=== PATIENT | male | born 1950 | race Caucasian/White ===

== ENCOUNTER 2016-07-11 19:51 | Inpatient (IN) | payer OTHER ==
[~2016-07-11] VITALS: Ht 172.7 cm; Wt 76.0 kg
[~2016-07-11 19:51] MED LIST: CYCL10TA6 PO; MELO15TA4 PO
[2016-07-11] MEDS ORDERED: LEVAQUIN 750MG / 150ML D5W IV STA (20:09)
[2016-07-11] MEDS ORDERED: PIPERACILLIN/TAZOBACTAM 4.5 GM/100ML D5W IV STA (20:09)
[2016-07-11] MEDS ORDERED: SODIUM CHLORIDE 0.9% 1000ML 1,000 ML IV STA ×2 (20:09→20:11)
[2016-07-11] MEDS ORDERED: SODIUM CHLORIDE 0.9% 500ML 500 ML IV STA (20:19)
--- NOTE | 2016-07-11 20:28 | EMERGENCY ROOM VISIT NOTE ---
History Report prepared by Lu: Frances Segundo Under the Supervision of: Dr. Anup Cowan M.D. First contact with patient: 20:02 Chief Complaint: FLU LIKE SX Stated Complaint: FLU LIKE SYMPTOMS,LETHARGIC History of Present Illness The patient is a 66 year old male who presents to the Emergency Room with complaints of persistent flu like symptoms that began one week ago. He currently rates his discomfort as a 6/10 in severity. The patient notes that he developed nausea, chills, a cough, and vomiting, stating that he is bringing up phlegm. He states that he has a history of kidney stone, stating that the other night he developed flank pain. The patient denies any current back pain, but notes groin pain. He states that he has been taking Ibuprofen for his symptoms and states that he last took it either last night or this morning. The patient denies any abdominal pain, but notes muscular pain due to the persistent coughing. 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 She states that the patient refused to come to the emergency department for further evaluation. Per the patient's daughter, the patient seemed fatigued on Thursday, but denies any confusion at that time. She states that the patient has been increasingly weak, has been confused and has had a decrease in appetite. Source of History: patient Onset: one week ago Position: other (global) Symptom Intensity: 6/10 Quality: other (flu like symptoms) Timing: other (persistent) Associated Symptoms: + chills, + cough, + fatigue, + nausea, + vomiting, + weakness, No abdominal pain, No back pain Note: Associated Symptoms: flank pain, groin pain, muscular pain, decrease in appetite , confused. Review of Systems See HPI for pertinent positives & negatives. A total of 10 systems reviewed and were otherwise negative. Past Medical & Surgical Medical Problems: (1) BPH (benign prostatic hypertrophy) (2) Renal calculi (3) Sepsis Surgical Problems: (1) H/O eye surgery (2) H/O lithotripsy Family History Diabetes mellitus FH: cancer FH: heart disease Social History Smoking Status: Former Smoker Alcohol Use: occasionally Drug Use: none Marital Status: Housing Status: lives with family Occupation Status: employed Current/Historical Medications Scheduled PRN Ibuprofen (Motrin), 400 MG PO Q6H PRN for Pain Allergies Coded Allergies: Acetaminophen (Verified Adverse Reaction, Unknown, vomiting, 09/25/13) Hydrocodone (Verified Adverse Reaction, Unknown, vomiting, 09/25/13) Physical Exam Vital Signs Date Time Temp Pulse Resp B/P Pulse Ox O2 Delivery O2 Flow Rate FiO2 07/11/16 21:31 38.0 110 20 93/59 93 Room Air 07/11/16 21:15 Room Air 07/11/16 20:30 120 20 96/59 93 07/11/16 20:18 121 07/11/16 20:17 93 Room Air 07/11/16 19:59 37.9 130 18 96/61 92 Room Air Physical Exam GENERAL: Patient appears confused. HEAD: Normocephalic atraumatic EYES: Ocular movements intact pupils equal and react to light OROPHARYNX mucous membranes are moist no exudates present no erythema or edema present NECK: Supple no nuchal rigidity CHEST: Good equal expansion LUNGS: Clear and equal to auscultation CARDIAC: Normal S1 and S2 ABDOMEN: Soft nontender no guarding BACK: No CVA tenderness EXTREMITIES: No pain upon palpation normal muscle strength in all groups no clubbing cyanosis or edema NEURO: Patient is following commands is answering questions appropriately. Alert and oriented x3 Cranial Nerves 2-12 grossly intact Medical Decision & Procedures ER Provider Diagnostic Interpretation: X-ray results as stated below per my interpretation and radiologist interpretation. Other radiology results as stated below per my review and radiologist interpretation: HEAD CT NONCONTRAST CT DOSE: 537.48 mGy.cm HISTORY: Altered mental status. TECHNIQUE: Multiaxial CT images of the head were performed without the use of intravenous contrast. Automated exposure control was utilized for this study. Comparison: None. Findings: Trace fluid within the right sphenoid sinus. The remaining paranasal sinuses and mastoid air cells are clear. The calvarium and skull base are intact. The ventricles and sulci are within normal limits. There is no mass, hematoma, midline shift, or acute infarct. Impression: No acute intracranial abnormality. Electronically signed by: Randall Richards M.D. 07/11/2016 10:03 PM CHEST ONE VIEW PORTABLE HISTORY: Sepsis COMPARISON: None. FINDINGS: There are low lung volumes. No focal lung consolidations to suggest pneumonia. No evidence for pulmonary edema. No pleural effusions. No pneumothorax. The heart is normal in size. A 1 cm nodular density within the right lateral lung base. This favors an overlapping nipple shadow. IMPRESSION: 1. No acute process within the chest. 2. A 1 cm nodular density within the right lateral lung base which favors an overlapping nipple shadow. Follow-up nonemergent PA and lateral views of the chest with nipple markers can be used for confirmation. Electronically signed by: Randall Richards M.D. 07/11/2016 8:41 PM Laboratory Results 07/11/16 20:18 Red Blood Count 4.35, Mean Corpuscular Volume 83.4, Mean Corpuscular Hemoglobin 29.2, Mean Corpuscular Hemoglobin Concent 35.0, Mean Platelet Volume 9.9, Neutrophils (%) (Auto) 91.8, Lymphocytes (%) (Auto) 3.5, Monocytes (%) (Auto) 3.1, Eosinophils (%) (Auto) 0.1, Basophils (%) (Auto) 0.1, Neutrophils # (Auto) 12.09, Lymphocytes # (Auto) 0.46, Monocytes # (Auto) 0.41, Eosinophils # (Auto) 0.01, Basophils # (Auto) 0.01 07/11/16 20:18 Test 07/11/16 20:15 07/11/16 20:18 07/11/16 20:23 07/11/16 20:25 Influenza Type A (RT-PCR) Neg for Influ A (NEG) Influenza Type B (RT-PCR) Neg for Influ B (NEG) White Blood Count 13.17 K/uL (4.8-10.8) Red Blood Count 4.35 M/uL (4.7-6.1) Hemoglobin 12.7 g/dL (14.0-18.0) Hematocrit 36.3 % (42-52) Mean Corpuscular Volume 83.4 fL (80-100) Mean Corpuscular Hemoglobin 29.2 pg (25-34) Mean Corpuscular Hemoglobin Concent 35.0 g/dl (32-36) Platelet Count 333 K/uL (130-400) Mean Platelet Volume 9.9 fL (7.4-10.4) Neutrophils (%) (Auto) 91.8 % Lymphocytes (%) (Auto) 3.5 % Monocytes (%) (Auto) 3.1 % Eosinophils (%) (Auto) 0.1 % Basophils (%) (Auto) 0.1 % Neutrophils # (Auto) 12.09 K/uL (1.4-6.5) Lymphocytes # (Auto) 0.46 K/uL (1.2-3.4) Monocytes # (Auto) 0.41 K/uL (0.11-0.59) Eosinophils # (Auto) 0.01 K/uL (0-0.5) Basophils # (Auto) 0.01 K/uL (0-0.2) RDW Standard Deviation 46.0 fL (36.4-46.3) RDW Coefficient of Variation 14.9 % (11.5-14.5) Immature Granulocyte % (Auto) 1.4 % Immature Granulocyte # (Auto) 0.19 K/uL (0.00-0.02) Prothrombin Time 13.1 SECONDS (9.0-12.0) Prothromb Time International Ratio 1.2 (0.9-1.1) Activated Partial Thromboplast Time 28.0 SECONDS (21.0-31.0) Partial Thromboplastin Ratio 1.1 Est Creatinine Clear Calc Drug Dose 49.5 ml/min Estimated GFR () 59.8 Estimated GFR (Non- 51.6 BUN/Creatinine Ratio 26.9 (10-20) Calcium Level 8.0 mg/dl (8.5-10.1) Total Bilirubin 1.4 mg/dl (0.2-1) Aspartate Amino Transf (AST/SGOT) U/L (15-37) Alanine Aminotransferase (ALT/SGPT) 54 U/L (12-78) Alkaline Phosphatase 135 U/L (45-117) Total Protein 7.3 gm/dl (6.4-8.2) Albumin 2.3 gm/dl (3.4-5.0) Globulin 5.0 gm/dl (2.5-4.0) Albumin/Globulin Ratio 0.5 (0.9-2) Hepatitis C Antibody Screen NEG (NEG) Bedside Lactic Acid Venous 2.28 mmol/L (0.90-1.70) Urine Color ORANGE Urine Appearance CLOUDY (CLEAR) Urine pH 5.0 (4.5-7.5) Urine Specific [place] 1.030 (1.000-1.030) Urine Protein 2+ (NEG) Urine Glucose (UA) NEG (NEG) Urine Ketones NEG (NEG) Urine Occult Blood 2+ (NEG) Urine Nitrite POS (NEG) Urine Bilirubin 2+ (NEG) Urine Urobilinogen POS (NEG) Urine Leukocyte Esterase TRACE (NEG) Urine WBC (Auto) 5-10 /hpf (0-5) Urine RBC (Auto) 5-10 /hpf (0-4) Urine Hyaline Casts (Auto) 10-30 /lpf (0-5) Urine Epithelial Cells (Auto) >30 /lpf (0-5) Urine Bacteria (Auto) NEG (NEG) Urine Renal Epithelial Cells 5-10 /lpf (0-5) Urine Pathogenic Casts 1-5 GRANULAR CASTS /lpf (0) Test 07/11/16 20:27 07/11/16 20:28 07/11/16 21:35 Bedside Hemoglobin 12.6 g/dl (14.0-18.0) Bedside Hematocrit 37 % (42-52) Bedside Sodium 132 mEq/L (135-144) Bedside Potassium 4.3 mEq/L (3.3-5.0) Bedside Chloride 97 mEq/L (101-112) Bedside Total CO2 22 mEq/l (24-31) Anion Gap 18.0 mmol/L (16-25) Bedside Blood Urea Nitrogen 47 mg/dl (7-18) Bedside Creatinine 1.2 mg/dl (0.6-1.3) Bedside Glucose (other) 91 mg/dl (70-99) Bedside Ionized Calcium (Alma) 1.00 mmol/l (1.12-1.32) D-Dimer 4180 ug/L FEU (0-500) Creatine Kinase MB Ratio (0-3.0) Troponin I 3.940 ng/ml (0-0.045) Lyme Disease IgG Antibody NEG (NEG) Lyme Disease IgM Antibody NEG (NEG) Labs reviewed by ED physician. Medications Administered Medications (Trade) Dose Ordered Sig/Amrit Route Start Time Stop Time Status Last Admin Dose Admin Piperacillin Sod/ Tazobactam Sod (Zosyn Iv) 4.5 gm ONE STAT IV 07/11/16 20:09 07/11/16 20:11 DC 07/11/16 20:26 4.5 GM Levofloxacin 750 mg 750 mg ONE STAT IV 07/11/16 20:09 07/11/16 20:11 DC 07/11/16 21:30 750 MG Daptomycin 450 mg/ Sodium Chloride 59 ml @ 100 mls/hr NOW ONCE IV 07/11/16 20:30 07/11/16 21:05 DC 07/11/16 20:45 100 MLS/HR Sodium Chloride 1,000 ml @ 999 mls/hr Q1H1M STAT IV 07/11/16 20:09 07/11/16 21:09 DC 07/11/16 20:26 999 MLS/HR Sodium Chloride 1,000 ml @ 999 mls/hr Q1H1M STAT IV 07/11/16 20:11 07/11/16 21:11 DC 07/11/16 20:45 999 MLS/HR Sodium Chloride (Nss 500ml) 500 ml @ 999 mls/hr Q31M STAT IV 07/11/16 20:19 07/11/16 20:49 DC 07/11/16 20:19 999 MLS/HR Ibuprofen 600 mg 600 mg NOW STAT PO 07/11/16 20:39 07/11/16 20:40 DC 07/11/16 20:45 600 MG Sodium Chloride (Nss 1000ml) 1,000 ml @ 125 mls/hr Q8H IV 07/11/16 21:55 08/10/16 21:54 07/11/16 23:23 125 MLS/HR ECG Indication: other (Flu like symptoms) Rate (beats per minute): 122 Rhythm: sinus tachycardia Findings: no acute ischemic change, no ectopy ED Course 2004: Past medical records reviewed. The patient was evaluated in room B2. A complete history and physical examination was performed. 2009: Ordered Sodium Chloride 1000 ml @ 999 mls/hr IV, Levofloxacin 750 mg IV, Zosyn IV 4.5 gm IV. 2010: Ordered Sodium Chloride 1000 ml @ 999 mls/hr IV. 2019: Ordered Sodium Chloride 500 ml @ 999 mls/hr IV 2030: Ordered Daptomycin 450 mg/Sodium Chloride 59 ml @ 100 mls/hr IV. 2038: I reevaluated the patient and he would like to have an HIV test.Ordered Ibuprofen 600 mg PO. 2125: I discussed the patient's case with REAGAN Delgado. She is going to evaluate the patient for further treatment. 2129: I reevaluated the patient and he is doing resting comfortably. I discussed the exam findings with him and I discussed the treatment plan. He verbalized complete understanding and agreement. He is going to be evaluated for further treatment. Medical Decision Differential diagnosis: Etiologies such as sepsis, UTI, pneumonia, metabolic, electrolyte abnormalities , cardiac sources, intracerebral event, toxicologic, neurologic, as well as others were entertained. This is a 66-year-old male who presents emergency department complaining of hypotension Tachycardic and fever. Because is septic an IV was established, the patient was given normal saline bolus 30 mg/kg. In addition he was pancultured up and started on antibiotics. The patient is requesting an HIV test. He was counseled and willingly signed a consent. The patient was discussed with the hospitalist service who agreed to admit the patient. Patient was in agreement with the treatment plan. Consults Time Called: 2123 Consulting Physician: REAGAN Delgado Returned Call: 2125 I discussed the patient's case with REAGAN Delgado. She is going to evaluate the patient for further treatment. Impression Primary Impression: Sepsis Scribe Attestation The scribe's documentation has been prepared under my direction and personally reviewed by me in its entirety. I confirm that the note above accurately reflects all work, treatment, procedures, and medical decision making performed by me. Departure Information Dispostion Being Evaluated By Hospitalist Referrals Magi Marie M.D. (PCP)
[2016-07-11] MEDS ORDERED: DAPTOmycin IV 450 MG in SODIUM CHLORIDE 0.9% 50ML 50 ML IV ONE (20:30)
[2016-07-11 20:35] LABS: BASO % 0.1 %; BASO ABS # 0.01 K/uL (0-0.2); COMPLETE YES; EOS % 0.1 %; HEMATOCRIT 36.3 % (42-52); IG% 1.4 %; LYMPH % 3.5 %; LYMPH ABS # 0.46 K/uL (1.2-3.4); MEAN CELL VOLUME 83.4 fL (80-100); MEAN CORPUSCULAR HEMOGLOBIN 29.2 pg (25-34); MEAN PLATELET VOLUME 9.9 fL (7.4-10.4); MONO % 3.1 %; NEUT % 91.8 %; PLATELET COUNT 333 K/uL (130-400); RED BLOOD COUNT 4.35 M/uL (4.7-6.1); WHITE BLOOD COUNT 13.17 K/uL (4.8-10.8)
[2016-07-11] MEDS ORDERED: IBUPROFEN 600 MG TAB PO STA (20:39)
[2016-07-11 20:42] LABS: URINE APPEARANCE CLOUDY (CLEAR); URINE COLOR ORANGE; URINE EPITHELIAL CELL AUTO >30 /lpf (0-5); URINE NITRITE POS (NEG); UROBILINOGEN POS (NEG); ZZUR CULT IF INDIC CLEAN CATCH NO
--- NOTE | 2016-07-11 20:42 | DIAGNOSTIC IMAGING REPORT ---
CHEST ONE VIEW PORTABLE HISTORY: Sepsis COMPARISON: None. FINDINGS: There are low lung volumes. No focal lung consolidations to suggest pneumonia. No evidence for pulmonary edema. No pleural effusions. No pneumothorax. The heart is normal in size. A 1 cm nodular density within the right lateral lung base. This favors an overlapping nipple shadow. IMPRESSION: 1. No acute process within the chest. 2. A 1 cm nodular density within the right lateral lung base which favors an overlapping nipple shadow. Follow-up nonemergent PA and lateral views of the chest with nipple markers can be used for confirmation. Electronically signed by: Randall Richards M.D. 07/11/2016 8:41 PM
[2016-07-11 20:43] LABS: URINE BILIRUBIN 2+ (NEG)
[2016-07-11 20:44] LABS: ISTAT CREATININE 1.2 mg/dl (0.6-1.3); ISTAT HEMOGLOBIN 12.6 g/dl (14.0-18.0)
[2016-07-11 20:47] LABS: MANUAL MICROSCOPIC REQUIRED? NO; REVIEW REQ? YES
[2016-07-11 20:47] LABS: INR 1.2 (0.9-1.1); PARTIAL THROMBOPLASTIN RATIO 1.1; PROTHROMBIN TIME (PATIENT) 13.1 SECONDS (9.0-12.0)
[2016-07-11 21:01] LABS: URINE PATH CASTS 1-5 GRANULAR CASTS /lpf (0)
[2016-07-11 21:10] LABS: ALT/SGPT 54 U/L (12-78); BLOOD UREA NITROGEN 38 mg/dl (7-18); CARBON DIOXIDE 23 mmol/L (21-32); CHLORIDE 98 mmol/L (98-107); GLUCOSE 86 mg/dl (70-99); SODIUM 133 mmol/L (136-145)
[2016-07-11 21:15] VITALS: Ht 172.7 cm; Wt 76.0 kg
[2016-07-11 21:43] LABS: ALB/GLOB RATIO 0.5 (0.9-2); ALKALINE PHOSPHATASE 135 U/L (45-117); BUN/CREATININE RATIO 26.9 (10-20)
[2016-07-11 22:00] LABS: INFLUENZA A PCR Neg for Influ A (NEG); INFLUENZA B PCR Neg for Influ B (NEG)
[2016-07-11] MEDS ORDERED: NITROGLYCERIN 0.4 MG SL PER TAB CHARGE SL PRN (22:00)
[2016-07-11] MEDS ORDERED: PIPERACILL/TAZOBAC CONSULT ACTIVE PRN (22:04)
--- NOTE | 2016-07-11 22:05 | DIAGNOSTIC IMAGING REPORT ---
HEAD CT NONCONTRAST CT DOSE: 537.48 mGy.cm HISTORY: Altered mental status. TECHNIQUE: Multiaxial CT images of the head were performed without the use of intravenous contrast. Automated exposure control was utilized for this study. Comparison: None. Findings: Trace fluid within the right sphenoid sinus. The remaining paranasal sinuses and mastoid air cells are clear. The calvarium and skull base are intact. The ventricles and sulci are within normal limits. There is no mass, hematoma, midline shift, or acute infarct. Impression: No acute intracranial abnormality. Electronically signed by: Randall Richards M.D. 07/11/2016 10:03 PM
[2016-07-11] MEDS ORDERED: IBUP-1459 PO (22:06)
[2016-07-11] MEDS ORDERED: LEVOFLOXACIN CONSULT ACTIVE PRN (22:15)
--- NOTE | 2016-07-11 22:40 | History and Physical ---
History & Physical Date & Time of Service: Jul 11, 2016 at 22:07 Chief Complaint: Flu Like Symptoms,Lethargic Primary Care Physician: Magi Marie M.D. History of Present Illness Source: patient This is a 66 y/o male with no PMHx who presents to the ED c/o flu like sxs for one week. Pt reports that for the past week he has had a cough that is mildly productive of phlegm. He states he will get coughing spells that cause him to vomit. His sxs are assoc with poor appetite but he has been able to eat multiple small meals a day. He had been taking Ibuprofen at home for his sxs with minimal relief. Today he developed shaking chills which prompted him to go to the ED. Pt reports he had some fleeting flank pain last week and ended up passing a stone which he states happens from time to time. Pt denies fever, diaphoresis, chest pain, palpitations, SOB, wheezing, abd pain, nausea, bowel or bladder issues, LE edema ,calf pain, lightheadedness/dizziness. In the ED, pt is febrile, tachycardic and hypotensive on arrival with leukocytosis >13k. lactic acid 2.28. Na+ 133. UA +nitrite, 2+ blood; neg bacteria. CXR negative for acute process. Initial troponin 2.9 and EKG sinus tachy with no acute ischemic changes noted. Pt received IVF and broad spectrum abx in the ED. He appears stable and will be admitted for further evaluation and treatment. Past Medical/Surgical History Medical Problems: (1) BPH (benign prostatic hypertrophy) Status: Chronic (2) Renal calculi Status: Resolved Surgical Problems: (1) H/O eye surgery Permanent Comment: repair retinal detachment Status: Resolved (2) H/O lithotripsy Status: Resolved Family History Diabetes mellitus FH: cancer FH: heart disease Social History Smoking Status: Former Smoker (13 pack year history; quit 1981) Alcohol Use: occasionally (rarely) Drug Use: none Marital Status: Housing status: lives with family Occupational Status: employed Allergies Coded Allergies: Acetaminophen (Verified Adverse Reaction, Unknown, vomiting, 09/25/13) Hydrocodone (Verified Adverse Reaction, Unknown, vomiting, 09/25/13) Home Medications Scheduled PRN Ibuprofen (Motrin), 400 MG PO Q6H PRN for Pain Review of Systems Constitutional: + chills, + fatigue, + weakness, No fever, No sweats Eyes: No worsening of vision ENT: No nasal symptoms, No sore throat Respiratory: + cough, + sputum, No shortness of breath, No wheezing Cardiovascular: No chest pain, No claudication, No edema, No palpitations Abdomen: + vomiting, No GI bleeding, No constipation, No diarrhea, No nausea, No pain Musculoskeletal: No calf pain, No swelling Genitourinary - Male: No dysuria, No hematuria Neurologic: No weakness Psychiatric: No depression symptoms Endocrine: + fatigue Hematologic / Lymphatic: No abnormal bleeding/bruising Integumentary: No new/changing skin lesions Physical Exam Vital Signs Date Time Temp Pulse Resp B/P Pulse Ox O2 Delivery O2 Flow Rate FiO2 07/11/16 21:31 38.0 110 20 93/59 93 Room Air 07/11/16 20:18 121 07/11/16 20:17 93 Room Air 07/11/16 19:59 37.9 130 18 96/61 92 Room Air General Appearance: WD/WN, no apparent distress, + pertinent finding (Pt is laying in bed with and daughter at bedside ) Head: normocephalic, atraumatic Eyes: normal inspection ENT: hearing grossly normal Neck: supple Respiratory/Chest: chest non-tender, lungs clear, normal breath sounds, no respiratory distress Cardiovascular: regular rate, rhythm, no edema, no murmur, + tachycardia Abdomen/GI: normal bowel sounds, non tender, soft Back: normal inspection Extremities/Musculoskelatal: normal inspection, no calf tenderness, no pedal edema Neurologic/Psych: alert, normal mood/affect, oriented x 3 Skin: normal color, warm/dry Diagnostics Laboratory Results Results Past 24 Hours Test 07/11/16 20:09 07/11/16 20:15 07/11/16 20:18 07/11/16 20:23 Range/Units Creatine Kinase MB Ratio 0-3.0 Influenza Type A (RT-PCR) Neg for Influ A NEG Influenza Type B (RT-PCR) Neg for Influ B NEG White Blood Count 13.17 4.8-10.8 K/uL Red Blood Count 4.35 4.7-6.1 M/uL Hemoglobin 12.7 14.0-18.0 g/dL Hematocrit 36.3 42-52 % Mean Corpuscular Volume 83.4 80-100 fL Mean Corpuscular Hemoglobin 29.2 25-34 pg Mean Corpuscular Hemoglobin Concent 35.0 32-36 g/dl Platelet Count 333 130-400 K/uL Mean Platelet Volume 9.9 7.4-10.4 fL Neutrophils (%) (Auto) 91.8 % Lymphocytes (%) (Auto) 3.5 % Monocytes (%) (Auto) 3.1 % Eosinophils (%) (Auto) 0.1 % Basophils (%) (Auto) 0.1 % Neutrophils # (Auto) 12.09 1.4-6.5 K/uL Lymphocytes # (Auto) 0.46 1.2-3.4 K/uL Monocytes # (Auto) 0.41 0.11-0.59 K/uL Eosinophils # (Auto) 0.01 0-0.5 K/uL Basophils # (Auto) 0.01 0-0.2 K/uL RDW Standard Deviation 46.0 36.4-46.3 fL RDW Coefficient of Variation 14.9 11.5-14.5 % Immature Granulocyte % (Auto) 1.4 % Immature Granulocyte # (Auto) 0.19 0.00-0.02 K/uL Prothrombin Time 13.1 9.0-12.0 SECONDS Prothromb Time International Ratio 1.2 0.9-1.1 Activated Partial Thromboplast Time 28.0 21.0-31.0 SECONDS Partial Thromboplastin Ratio 1.1 Sodium Level 133 136-145 mmol/L Potassium Level 3.5-5.1 mmol/L Chloride Level 98 98-107 mmol/L Carbon Dioxide Level 23 21-32 mmol/L Anion Gap 12.0 3-11 mmol/L Blood Urea Nitrogen 38 7-18 mg/dl Creatinine 1.40 0.60-1.40 mg/dl Est Creatinine Clear Calc Drug Dose 49.5 ml/min Estimated GFR () 59.8 Estimated GFR (Non- 51.6 BUN/Creatinine Ratio 26.9 10-20 Random Glucose 86 70-99 mg/dl Calcium Level 8.0 8.5-10.1 mg/dl Total Bilirubin 1.4 0.2-1 mg/dl Aspartate Amino Transf (AST/SGOT) 15-37 U/L Alanine Aminotransferase (ALT/SGPT) 54 12-78 U/L Alkaline Phosphatase 135 45-117 U/L Total Creatine Kinase 39-308 U/L Creatine Kinase MB 7.1 0.5-3.6 ng/ml Troponin I 2.970 0-0.045 ng/ml Total Protein 7.3 6.4-8.2 gm/dl Albumin 2.3 3.4-5.0 gm/dl Globulin 5.0 2.5-4.0 gm/dl Albumin/Globulin Ratio 0.5 0.9-2 Bedside Lactic Acid Venous 2.28 0.90-1.70 mmol/L Test 07/11/16 20:25 07/11/16 20:27 07/11/16 21:35 Range/Units Urine Color ORANGE Urine Appearance CLOUDY CLEAR Urine pH 5.0 4.5-7.5 Urine Specific [place] 1.030 1.000-1.030 Urine Protein 2+ NEG Urine Glucose (UA) NEG NEG Urine Ketones NEG NEG Urine Occult Blood 2+ NEG Urine Nitrite POS NEG Urine Bilirubin 2+ NEG Urine Urobilinogen POS NEG Urine Leukocyte Esterase TRACE NEG Urine WBC (Auto) 5-10 0-5 /hpf Urine RBC (Auto) 5-10 0-4 /hpf Urine Hyaline Casts (Auto) 10-30 0-5 /lpf Urine Epithelial Cells (Auto) >30 0-5 /lpf Urine Bacteria (Auto) NEG NEG Urine Renal Epithelial Cells 5-10 0-5 /lpf Urine Pathogenic Casts 1-5 GRANULAR CASTS 0 /lpf Bedside Hemoglobin 12.6 14.0-18.0 g/dl Bedside Hematocrit 37 42-52 % Bedside Sodium 132 135-144 mEq/L Bedside Potassium 4.3 3.3-5.0 mEq/L Bedside Chloride 97 101-112 mEq/L Bedside Total CO2 22 24-31 mEq/l Anion Gap 18.0 16-25 mmol/L Bedside Blood Urea Nitrogen 47 7-18 mg/dl Bedside Creatinine 1.2 0.6-1.3 mg/dl Bedside Glucose (other) 91 70-99 mg/dl Bedside Ionized Calcium ([place]) 1.00 1.12-1.32 mmol/l Microbiology Results 07/11/16 Blood Culture, Received Pending 07/11/16 Blood Culture, Received Pending Diagnostic Radiology CXR IMPRESSION: 1. No acute process within the chest. 2. A 1 cm nodular density within the right lateral lung base which favors an overlapping nipple shadow. Follow-up nonemergent PA and lateral views of the chest with nipple markers can be used for confirmation. CT HEAD IMPRESSION: No acute intracranial abnormality. EKG EKG: Sinus tach at 122 bpm with no acute ischemic changes noted; no previous EKG available for comparison Impression Assessment and Plan SEPSIS; UNCLEAR SOURCE pt presents with mildly productive cough, posttussive vomiting and shaking chills -admit to telemetry -unclear source-? urine vs. viral etiology -meets SIRS criteria with fever, tachycardia, hypotension and leukocytosis >13K -lactic acid 2.28; repeat within 6 hrs -negative flu -CXR negative for acute process -UA + nitrite, 2+ blood; negative bacteria -blood and urine cx-pending -start IVF and broad spectrum abx ( Zosyn and Levaquin) -pt is stable -continue to monitor ELEVATED TROPONIN R/O ACS -troponin 2.97; may be elevated due to acute sepsis vs. demand ischemia from tachycardia -EKG sinus tachy with no evidence of ischemia; repeat PRN chest pain and in AM -monitor with serial Jamal -obtain echo to r/o cardiac wall motion abnormalities -pt currently denies acute coronary sxs HEMATURIA -pt reports passing kidney stone a few days ago -UA 2+ blood; culture-pending -obtain retroperitoneal US to evaluate for possible ureteral calculi -pt currently denies urinary sxs DVT PROPHYLAXIS -SCDs only for now due to hematuria CODE STATUS -FULL CODE status DISPO -Pt seen in collaboration with Dr. Andres. Please see his addendum for further details. Thanks! -Pt will be followed by Dr. Thorne starting tomorrow AM. Attending Note: Patient is interviewed and examined along with Jay Casas PA-C Patient is a 66 Yr old male with PMH of Nephrolithiasis, BPH presents for evaluation of flu like symptoms since 1 week duration. States having cough with mild expectoration, decreased appetite, shaking chills. He also stated that past week he had developed some flank pain and belives to have a passed a stone. He denies any other relevant positive history. He tried Ibuprofen which did not help with his symptoms. In ED he is noted to be tachycardia, hypotensive , febrile, with elevated lactic acid but no apparent distress. Physical Exam: Vital signs as noted above No distress, AAO X3 CVS: Tachycardic, S1, S2, No murmur Lungs: CTA Abd: Soft, non tender, BS present Neuro: no focal deficits Extremities: Normal pulses, No pedal edema Assessment and Plan: Sepsis: Unclear source, DD: UTI, Viral Continue to monitor in Telemetry Blood/Urine cultures Start on Zosyn, levaquin Check Lyme's titer, repeat lactic acid, procalcitonin Negative flu screen CXR negative, Check renal ultrasound Elevated Troponin: R/O ACS: less likely Likely secondary to sepsis and demand ischemia Trend troponin, EKG no signs of ischemia Check ECHO Hematuria: Check retroperitoneal USD to evaluate for possible ureteral calculi Advanced Directives Existing Advance Directive: No Existing Living Will: No Existing Power of [employer] Customer Experience Advisor: No VTE Prophylaxis VTE Risk Assessment Done? Y/N: Yes Risk Level: Moderate
--- NOTE | 2016-07-11 23:03 | DIAGNOSTIC IMAGING REPORT ---
RENAL ULTRASOUND HISTORY: hematuria; r/o ureteral calculi COMPARISON: Abdomen and pelvis CT 09/25/2013. FINDINGS: Right kidney: 10.1 cm. No hydronephrosis. Normal corticomedullary differentiation and cortical thickness. A 6 mm stone. Left kidney: 11.4 cm. No hydronephrosis. Normal corticomedullary differentiation and cortical thickness. A 6 mm stone. Bladder: Bladder wall thickening. Enlarged prostate, unchanged. IMPRESSION: 1. Bilateral nephrolithiasis. No hydronephrosis. 2. Bladder wall thickening with an enlarged prostate. This remains unchanged. Electronically signed by: Randall Richards M.D. 07/11/2016 11:02 PM
[2016-07-11 23:13] LABS: LYME DISEASE AB IGG NEG (NEG); LYME DISEASE AB IGM NEG (NEG)
[2016-07-11] MEDS: SODIUM CHLORIDE 0.9% 1000ML 1,000 ML IV SCH (23:23)
[2016-07-11 23:51] VITALS: BP 94/60; PULSE 101; TEMP 37.2; O2SAT 93
[2016-07-12] VITALS (8 sets, daily range): BP systolic 100–108; BP diastolic 63–68; PULSE 86–110; TEMP 36.4–38.1; O2SAT 91–97
[2016-07-12] MEDS ORDERED: OPTIRAY 320 IV PRN (00:30)
[2016-07-12 00:32] LABS: CKMB/CK RATIO 0.6 (0-3.0)
[2016-07-12] MEDS: PIPERACILL/TAZOBAC IV 3.375 GM in DEXTROSE 5% 100ML 100 ML IV SCH ×3 (01:48→18:14)
[2016-07-12] MEDS ORDERED: HEPARIN IV LOW DOSE NO BOLUS SCH (02:00)
[2016-07-12] MEDS: HEPARIN 25,000 UNIT/500ML D5W 500 ML IV PRN ×3 (02:28→21:00)
[2016-07-12] MEDS ORDERED: HEPARIN IV BOLUS 6,000 UNIT in SYRINGE 0 ML IV ONE ×3 (02:30→21:30)
[2016-07-12] MEDS: ZOLPIDEM TARTRATE 5 MG TAB PO PRN (03:55)
[2016-07-12] MEDS: SODIUM CHLORIDE 0.9% 1000ML 1,000 ML IV SCH ×3 (05:54→22:30)
[2016-07-12 06:14] LABS: HEMATOCRIT 32.6 % (42-52); MEAN CORPUSCULAR HEMOGLOBIN 28.1 pg (25-34); MEAN CORPUSCULAR HGB CONC 33.4 g/dl (32-36); MEAN PLATELET VOLUME 9.8 fL (7.4-10.4); PLATELET COUNT 272 K/uL (130-400); RED BLOOD COUNT 3.88 M/uL (4.7-6.1); WHITE BLOOD COUNT 10.19 K/uL (4.8-10.8)
--- NOTE | 2016-07-12 06:17 | DIAGNOSTIC IMAGING REPORT ---
BILATERAL LOWER EXTREMITY VENOUS DOPPLER HISTORY: Pain. Edema. r/o dv COMPARISON STUDY: None. FINDINGS: Normal venous Doppler right leg. Thrombus within the left lower leg peroneal vein. All remaining venous structures left leg are unremarkable IMPRESSION: 1. No evidence for deep venous thrombosis right leg. 2. Focal deep venous thrombosis left peroneal vein left lower leg Electronically signed by: Antoine Sheldon M.D. 07/12/2016 6:16 AM
--- NOTE | 2016-07-12 06:20 | DIAGNOSTIC IMAGING REPORT ---
CHEST CTA for PULMONARY ARTERIES CT DOSE: 286.42 mGy.cm HISTORY: Chest pain dyspnea TECHNIQUE: Multiaxial CT images of the chest were performed following the intravenous administration of contrast to evaluate the pulmonary arteries. Maximal intensity projection images were also obtained. COMPARISON STUDY: None. FINDINGS: Thoracic aorta is unremarkable. Evaluation of pulmonary arterial vasculature shows filling defects of the third order right upper lobe pulmonary vessels. The main central pulmonary arterial vasculature opacifies appropriately. Mild peribronchial thickening. Mild dependent bibasilar atelectasis. No evidence for a saddle embolus. IMPRESSION: 1. Study is positive for pulmonary emboli involving the peripheral right upper lobe pulmonary arterial distribution. 2. All remaining pulmonary vessels enhance appropriately. 3. Mild interstitial prominence with mild bibasilar atelectatic change. 4. Small hiatal hernia Electronically signed by: Antoine Sheldon M.D. 07/12/2016 6:19 AM
[2016-07-12 06:34] LABS: PARTIAL THROMBOPLASTIN RATIO 1.7
[2016-07-12] MEDS ORDERED: HEPARIN IV BOLUS 3,000 UNIT in SYRINGE 0 ML IV ONE (06:45)
[2016-07-12 06:55] LABS: BUN/CREATININE RATIO 31.1 (10-20); CALCIUM 7.5 mg/dl (8.5-10.1); CREATININE 0.99 mg/dl (0.60-1.40); POTASSIUM 3.3 mmol/L (3.5-5.1)
[2016-07-12 07:05] LABS: ALB/GLOB RATIO 0.5 (0.9-2)
[2016-07-12 07:32] LABS: CKMB/CK RATIO 0.6 (0-3.0)
--- NOTE | 2016-07-12 07:46 | Progress Note ---
Progress Note ATTENDING ADDENDUM d dimer 4k, troponin increased to 3 patient seen and examined at bedside denies chest pain, dyspnea, palpitations, dizziness EKG no acute ischemia, infarct sent for stat CT angio: (+) right upper lobe PE, Leg US: (+) left peroneal vein DVT VS noted and reviewed oriented x 3, not in distress, speaks in sentences with no effort nor accessory muscle use normal rate, regular rhythm, no murmurs clear breath sounds bilaterally non distended, soft, nontender mild edema left lower leg no neuro deficits ASSESSMENT/PLAN> PULMONARY EMBOLISM, RIGHT UPPER LOBE DVT, LEFT PERONEAL VEIN - Heparin drip with bolus ordered ELEVATED CARDIAC MARKERS - possible NSTEMI, Demand Ischemia? - no cardiac symptoms EKG no signs of acute infarct - on Heparin Aspirin started Andi Hightower MD
[2016-07-12] MEDS ORDERED: INFLUENZA ADMINISTRATION CHARGE ONE (08:00)
[2016-07-12] MEDS ORDERED: INFLUENZA VIRUS QUAD VACCINE 0.5 ML SYR IM. ONE (08:00)
--- NOTE | 2016-07-12 09:05 | ECHOCARDIOGRAM REPORT ---
*NOTICE TO RECEIVING CONSTITUTION PARTY AGENCY This information is strictly Confidential and protected under [place] law. [place] law prohibits you from making any further disclosure of this information unless further disclosure is expressly permitted by the written consent of the person to whom it pertains or is authorized by law. A general authorization for the release of medical or other information is not sufficient for this purpose. Hospital accepts no responsibility if the information is made available to any other person, INCLUDING THE PATIENT. Interpretation Summary * Name: MARICEL SAHU Study Date: 07/12/2016 07:24 AM BP: 108/63 mmHg * Patient Location: C.2T\S\E215\S\1 HR: 89 * : 1950 (M/d/yyyy) Gender: Male Height: 68 in * Age: 66 yrs Ethnicity: CA Weight: 169 lb * Ordering Physician: Argenis Casas PA-C * Performed By: Pam Jim * * Reason For Study: ELEVATED TROPONIN * BSA: 1.9 m2 * -- Conclusions -- * The left ventricle is normal in size. * There is normal left ventricular wall thickness. * The left ventricular wall motion is normal. * Left ventricular systolic function is normal. * Ejection Fraction = 60-65%. * Grade I diastolic dysfunction, (abnormal relaxation pattern). * Borderline right ventricular enlargement. * There is mild to moderate tricuspid regurgitation. * Right ventricular systolic pressure is elevated at 30-40mmHg. Procedure Details * A complete two-dimensional transthoracic echocardiogram was performed (2D, M-mode, Doppler and color flow Doppler). Left Ventricle * The left ventricle is normal in size. * There is normal left ventricular wall thickness. * Ejection Fraction = 60-65%. * Left ventricular systolic function is normal. * The left ventricular wall motion is normal. Right Ventricle * Borderline right ventricular enlargement. Atria * The left atrial size is normal. * Right atrial size is normal. * No ASD detected; PFO is not assessed. Mitral Valve * The mitral valve is normal. * There is no mitral valve stenosis. * There is trace mitral regurgitation. Tricuspid Valve * The tricuspid valve anatomy is normal. * There is no tricuspid stenosis. * There is mild to moderate tricuspid regurgitation. * Right ventricular systolic pressure is elevated at 30-40mmHg. Aortic Valve * The aortic valve is trileaflet. * No hemodynamically significant valvular aortic stenosis. * No aortic regurgitation is present. Pulmonic Valve * The pulmonic valve is not well visualized. Great Vessels * The aortic root is normal size. Pericardium/Pleural * There is no pericardial effusion. Great Vessels * Normal inferior vena cava diameter and respiratory variation suggests normal central venous pressure. Left Ventricular Diastolic Function * Grade I diastolic dysfunction, (abnormal relaxation pattern). MMode 2D Measurements and Calculations IVSd 0.66 cm IVSs 0.77 cm LVIDd 3.8 cm LVIDs 2.5 cm LVPWd 0.82 cm LVPWs 1.2 cm IVS/LVPW 0.80 FS 35.0 % EDV(Teich) 61.1 ml ESV(Teich) 21.4 ml EF(Teich) 65.1 % EDV(cubed) 53.9 ml ESV(cubed) 14.8 ml EF(cubed) 72.5 % % IVS thick 16.9 % % LVPW thick 42.0 % LV mass(C)d 76.6 grams LV mass(C)dI 40.3 grams/m\S\2 LV mass(C)s 58.8 grams LV mass(C)sI 30.9 grams/m\S\2 CO(Teich) 3.4 l/min CI(Teich) 1.8 l/min/m\S\2 SV(Teich) 39.8 ml SI(Teich) 20.9 ml/m\S\2 CO(cubed) 3.4 l/min CI(cubed) 1.8 l/min/m\S\2 SV(cubed) 39.1 ml SI(cubed) 20.6 ml/m\S\2 ACS 1.4 cm LA dimension 3.0 cm asc Aorta Diam 3.0 cm LVOT diam 1.8 cm LVOT area 2.5 cm\S\2 LVAd ap4 30.4 cm\S\2 LVLd ap4 8.4 cm EDV(MOD-sp4) 90.0 ml LVAs ap4 15.6 cm\S\2 LVLs ap4 6.9 cm ESV(MOD-sp4) 31.0 ml EF(MOD-sp4) 65.6 % LVAd ap2 28.0 cm\S\2 LVLd ap2 7.7 cm EDV(MOD-sp2) 85.0 ml LVAs ap2 14.7 cm\S\2 LVLs ap2 5.7 cm ESV(MOD-sp2) 33.0 ml EF(MOD-sp2) 61.2 % CO(MOD-sp4) 5.1 l/min CI(MOD-sp4) 2.7 l/min/m\S\2 SV(MOD-sp4) 59.0 ml SI(MOD-sp4) 31.0 ml/m\S\2 CO(MOD-sp2) 4.5 l/min CI(MOD-sp2) 2.4 l/min/m\S\2 SV(MOD-sp2) 52.0 ml SI(MOD-sp2) 27.3 ml/m\S\2 Doppler Measurements and Calculations MV E max jordan 60.5 cm/sec MV A max jordan 87.3 cm/sec MV E/A 0.69 MV dec time 0.17 sec Ao V2 max 125.6 cm/sec Ao max PG 6.3 mmHg Ao max PG (full) 3.4 mmHg FLORENTINO(V,A) 1.7 cm\S\2 FLORENTINO(V,D) 1.7 cm\S\2 LV V1 max PG 2.9 mmHg LV V1 mean PG 1.6 mmHg LV V1 max 84.7 cm/sec LV V1 mean 58.0 cm/sec LV V1 VTI 18.4 cm MR max jordan 210.4 cm/sec MR max PG 17.7 mmHg SV(LVOT) 45.1 ml SI(LVOT) 23.7 ml/m\S\2 PA V2 max 52.8 cm/sec PA max PG 1.1 mmHg PI end-d jordan 119.4 cm/sec TR max jordan 233.0 cm/sec
[2016-07-12] MEDS: ASPIRIN 81 MG ECTAB PO SCH (09:32)
[2016-07-12] MEDS ORDERED: POTASSIUM CHLORIDE 20 MEQ TABCR PO STA (11:48)
[2016-07-12 12:20] LABS: PARTIAL THROMBOPLASTIN RATIO 1.6
[2016-07-12] MEDS: ONDANSETRON INJ 2 MG/ML 2 ML VIAL IV PRN (14:53)
--- NOTE | 2016-07-12 16:06 | Progress Note ---
Medicine Progress Note Date & Time of Visit: Jul 12, 2016 at 16:06. Subjective Patient reports feeling ok other than having multiple blood draws. He denies any N/V today. Tolerating clear liquids without difficulty. No overnight events noted. His family was at the bedside and were updated. Complains of some sore muscles in his chest and abdomen from vomiting but otherwise no complaints. Objective Last 8 Hrs Date Time Temp Pulse Resp B/P Pulse Ox O2 Delivery O2 Flow Rate FiO2 07/12/16 15:26 37.1 91 16 100/67 91 Room Air 07/12/16 12:20 36.4 86 20 104/68 97 Physical Exam: GENERAL: Patient is in no acute distress. HEENT: No acute trauma, normocephalic, mucous membranes moist, no nasal congestion, no scleral icterus. NECK: No stridor, trachea is midline. LUNGS: Diminished bilaterally, no wheeze, no rhonchi, breath sounds equal. HEART: Without murmurs gallops or rubs, regular rate and rhythm. ABDOMEN: Soft, nontender, bowel sounds positive EXTREMITIES: No cyanosis or edema NEUROLOGIC: Oriented x 3, no acute motor or sensory deficits, no focal weakness. SKIN: No rash, no jaundice, no diaphoresis. Laboratory Results: Last 24 Hours Test 07/11/16 20:09 07/11/16 20:15 07/11/16 20:18 07/11/16 20:23 Creatine Kinase MB Ratio Influenza Type A (RT-PCR) Neg for Influ A Influenza Type B (RT-PCR) Neg for Influ B White Blood Count 13.17 K/uL Red Blood Count 4.35 M/uL Hemoglobin 12.7 g/dL Hematocrit 36.3 % Mean Corpuscular Volume 83.4 fL Mean Corpuscular Hemoglobin 29.2 pg Mean Corpuscular Hemoglobin Concent 35.0 g/dl Platelet Count 333 K/uL Mean Platelet Volume 9.9 fL Neutrophils (%) (Auto) 91.8 % Lymphocytes (%) (Auto) 3.5 % Monocytes (%) (Auto) 3.1 % Eosinophils (%) (Auto) 0.1 % Basophils (%) (Auto) 0.1 % Neutrophils # (Auto) 12.09 K/uL Lymphocytes # (Auto) 0.46 K/uL Monocytes # (Auto) 0.41 K/uL Eosinophils # (Auto) 0.01 K/uL Basophils # (Auto) 0.01 K/uL RDW Standard Deviation 46.0 fL RDW Coefficient of Variation 14.9 % Immature Granulocyte % (Auto) 1.4 % Immature Granulocyte # (Auto) 0.19 K/uL Prothrombin Time 13.1 SECONDS Prothromb Time International Ratio 1.2 Activated Partial Thromboplast Time 28.0 SECONDS Partial Thromboplastin Ratio 1.1 Sodium Level 133 mmol/L Potassium Level mmol/L Chloride Level 98 mmol/L Carbon Dioxide Level 23 mmol/L Anion Gap 12.0 mmol/L Blood Urea Nitrogen 38 mg/dl Creatinine 1.40 mg/dl Est Creatinine Clear Calc Drug Dose 49.5 ml/min Estimated GFR () 59.8 Estimated GFR (Non- 51.6 BUN/Creatinine Ratio 26.9 Random Glucose 86 mg/dl Calcium Level 8.0 mg/dl Total Bilirubin 1.4 mg/dl Aspartate Amino Transf (AST/SGOT) U/L Alanine Aminotransferase (ALT/SGPT) 54 U/L Alkaline Phosphatase 135 U/L Total Creatine Kinase U/L Creatine Kinase MB 7.1 ng/ml Troponin I 2.970 ng/ml Total Protein 7.3 gm/dl Albumin 2.3 gm/dl Globulin 5.0 gm/dl Albumin/Globulin Ratio 0.5 Hepatitis C Antibody Screen NEG Bedside Lactic Acid Venous 2.28 mmol/L Test 07/11/16 20:25 07/11/16 20:27 07/11/16 20:28 07/11/16 21:35 Urine Color ORANGE Urine Appearance CLOUDY Urine pH 5.0 Urine Specific Foley 1.030 Urine Protein 2+ Urine Glucose (UA) NEG Urine Ketones NEG Urine Occult Blood 2+ Urine Nitrite POS Urine Bilirubin 2+ Urine Urobilinogen POS Urine Leukocyte Esterase TRACE Urine WBC (Auto) 5-10 /hpf Urine RBC (Auto) 5-10 /hpf Urine Hyaline Casts (Auto) 10-30 /lpf Urine Epithelial Cells (Auto) >30 /lpf Urine Bacteria (Auto) NEG Urine Renal Epithelial Cells 5-10 /lpf Urine Pathogenic Casts 1-5 GRANULAR CASTS /lpf Bedside Hemoglobin 12.6 g/dl Bedside Hematocrit 37 % Bedside Sodium 132 mEq/L Bedside Potassium 4.3 mEq/L Bedside Chloride 97 mEq/L Bedside Total CO2 22 mEq/l Anion Gap 18.0 mmol/L Bedside Blood Urea Nitrogen 47 mg/dl Bedside Creatinine 1.2 mg/dl Bedside Glucose (other) 91 mg/dl Bedside Ionized Calcium (Alma) 1.00 mmol/l D-Dimer 4180 ug/L FEU Total Creatine Kinase 1078 U/L Creatine Kinase MB 6.6 ng/ml Creatine Kinase MB Ratio 0.6 Troponin I 3.940 ng/ml Lyme Disease IgG Antibody NEG Lyme Disease IgM Antibody NEG HIV (1&2) Ab and P24 Ag, 4th Gener PRELIM POS Test 07/12/16 02:13 07/12/16 05:54 07/12/16 12:00 Total Creatine Kinase 1143 U/L Creatine Kinase MB 6.7 ng/ml Creatine Kinase MB Ratio 0.6 Troponin I 2.930 ng/ml 1.690 ng/ml White Blood Count 10.19 K/uL Red Blood Count 3.88 M/uL Hemoglobin 10.9 g/dL Hematocrit 32.6 % Mean Corpuscular Volume 84.0 fL Mean Corpuscular Hemoglobin 28.1 pg Mean Corpuscular Hemoglobin Concent 33.4 g/dl RDW Standard Deviation 46.4 fL RDW Coefficient of Variation 15.0 % Platelet Count 272 K/uL Mean Platelet Volume 9.8 fL Activated Partial Thromboplast Time 44.5 SECONDS 40.6 SECONDS Partial Thromboplastin Ratio 1.7 1.6 Sodium Level 136 mmol/L Potassium Level 3.3 mmol/L Chloride Level 102 mmol/L Carbon Dioxide Level 22 mmol/L Anion Gap 12.0 mmol/L Blood Urea Nitrogen 31 mg/dl Creatinine 0.99 mg/dl Est Creatinine Clear Calc Drug Dose 70.0 ml/min Estimated GFR () 91.0 Estimated GFR (Non- 78.5 BUN/Creatinine Ratio 31.1 Random Glucose 94 mg/dl Calcium Level 7.5 mg/dl Total Bilirubin 1.4 mg/dl Aspartate Amino Transf (AST/SGOT) 115 U/L Alanine Aminotransferase (ALT/SGPT) 45 U/L Alkaline Phosphatase 120 U/L Total Protein 5.8 gm/dl Albumin 1.8 gm/dl Globulin 4.0 gm/dl Albumin/Globulin Ratio 0.5 Procalcitonin 28.55 ng/mL Date/Time Source Procedure Growth Status 07/11/16 20:45 Blood Blood Culture Pending Received 07/11/16 20:18 Blood Blood Culture Pending Received 07/11/16 23:45 Nasal MRSA DNA Surveillance Screen - Final Specimen Negative for MRSA by DNA Probe Complete 07/12/16 01:20 Urine , Clean Catch Urine Culture Pending Received Assessment & Plan ACUTE PE AND DVT: -RUL peripheral PE and left peroneal DVT as seen on CTA and LE doppler -on IV heparin -coumadin started today (overlap day 1) -unclear etiology, apparently no hypercoagulable labs were drawn in the ER, will need a full hypercoagulable workup once patient is off anticoagulation -no recent surgery/trauma/prolonged periods of immobility POSSIBLE SEPSIS: UNCLEAR SOURCE -presented with mildly productive cough, post-tussive vomiting and shaking chills -unclear source: ? urine vs. viral etiology -meets SIRS criteria with fever, tachycardia, hypotension and leukocytosis >13K -lactic acid 2.28 POC and 1.0 -negative flu -CXR: negative for acute process -blood and urine cultures pending -on IV fluids -on broad spectrum abx ( Zosyn and Levaquin) -patient has also required HIV testing which is pending ELEVATED TROPONIN: -troponin was 2.97; but has been trending down -most likely elevated due to PE, and possibly from acute sepsis vs. demand ischemia from tachycardia -EKG sinus tach with no evidence of ischemia -no chest pain -no wall motion abnormalities noted on TTE -is already on anticoagulation for PE HEMATURIA: -pt reports passing kidney stone a few days ago -UA 2+ blood; cultures pending -Renal US: bilateral nephrolithiasis, prostatic hypertrophy and nonspecific bladder wall thickening unchanged from prior US -denies any additional urinary symptoms Current Inpatient Medications: Current Inpatient Medications Medications (Trade) Dose Ordered Sig/Amrit Route Start Time Stop Time Status Last Admin Dose Admin Sodium Chloride (Nss 1000ml) 1,000 ml @ 125 mls/hr Q8H IV 07/11/16 21:55 08/10/16 21:54 07/12/16 14:19 125 MLS/HR Ondansetron HCl (Zofran Inj) 4 mg Q6H PRN IV 07/11/16 22:00 08/10/16 21:59 07/12/16 14:53 4 MG Nitroglycerin (Nitrostat Tab) 0.4 mg UD PRN SL 07/11/16 22:00 08/10/16 21:59 Piperacillin Sod/ Tazobactam Sod 1 ea 1 ea UD PRN N/A 07/11/16 22:04 08/10/16 22:03 Piperacillin Sod/ Tazobactam Sod 3.375 gm/Dextrose 115 ml @ 28.75 mls/ hr Q8H IV 07/12/16 02:00 07/21/16 23:59 07/12/16 09:34 28.75 MLS/HR Levofloxacin/Prmx (Levaquin / D5w/ Premixed D5W) 150 ml @ 100 mls/hr Q24H IV 07/12/16 22:00 07/21/16 23:59 Levofloxacin (Consult) 1 ea UD PRN N/A 07/11/16 22:15 08/10/16 22:14 Ioversol 125 ml 125 ml UD PRN IV 07/12/16 00:30 07/16/16 00:29 Heparin Sodium/ Dextrose (Heparin 25,000 Unit/500ml D5W) 500 ml @ 35 mls/hr [id number] PRN IV 07/12/16 02:15 07/26/16 02:14 07/12/16 14:50 35 MLS/HR Zolpidem Tartrate (Ambien Tab) 5 mg HSZ PRN PO 07/12/16 03:45 08/11/16 03:44 07/12/16 03:55 5 MG Aspirin (Ecotrin Tab) 81 mg QAM PO 07/12/16 09:00 08/11/16 08:59 07/12/16 09:32 81 MG Warfarin Sodium (Coumadin Tab) 5 mg DAILY@16 PO 07/12/16 16:00 08/11/16 15:59
[2016-07-12] MEDS: WARFARIN SOD 5 MG TAB PO SCH (17:13)
[2016-07-12] MEDS ORDERED: VANCOMYCIN CONSULT ACTIVE PRN (20:52)
[2016-07-12 20:56] LABS: PARTIAL THROMBOPLASTIN RATIO 1.2
[2016-07-12] MEDS: TRAMADOL HCL 50 MG TAB PO PRN (20:58)
[2016-07-12] MEDS ORDERED: VANCOMYCIN INJ 1,900 MG in SODIUM CHLORIDE 0.9% 500ML 500 ML IV ONE (21:15)
--- NOTE | 2016-07-12 21:21 | Pharmacy Progress Note ---
Pharmacy Antibiotic Consult Date of Service: Jul 12, 2016. Pharmacy Dosing Scope Pharmacy is consulted to initiate vancomycin IV dosing therapy, order appropriate labs and adjust drug dose/frequency. Subjective The patient is a 66 year old male admitted on Jul 11, 2016 at 21:57 with sepsis. He now has GP cocci in his blood culture thus vancomycin was started. Objective Height (Feet): 5 Height (Inches): 8.00 Weight (Kilograms): 76.700 Lab Results (24hrs): Laboratory Tests Test 07/12/16 05:54 BUN/Creatinine Ratio 31.1 Blood Urea Nitrogen 31 mg/dl Creatinine 0.99 mg/dl White Blood Count 10.19 K/uL Micro Results: RUN DATE: 07/12/[address] [facility] LAB PAGE 1 RUN TIME: 1928 Specimen Inquiry PATIENT: MARICEL SAHU LOC: [facility] U # : [id number] AGE/SX: 66/M ROOM: [facility] REG : 07/11/[address]: Yoko Thorne D.O. : 1950 BED: 1 DIS : STATUS: ADM IN TLOC: SPEC #: [id number] DANIEL: 07/11/16 STATUS: RES REQ #: [id number] RECD: 07/11/16-[address] [facility] [address]: Anup Cowan MD SOURCE: BLOOD ENTR: 07/11/16-2010 [facility] DR: Magi Marie M.D. [facility]: ORDERED: BLOOD CULTURE Procedure Result Verified Site BLD CULT Preliminary 07/12/16-1928 Organism 1 GRAM POSITIVE COCCI SENS SENSITIVITY TO FOLLOW Phoned Positive Blood Culture Gram Stain Report to MARY ANN COURTNEY on 07/12/16 At 1928 By SANDRA. Results were verbalized back to SANDRA. Recent Pertinent Medications Item Value Date Time Levofloxacin 750 150 ml @ 100 mls/hr 07/12/16 2200 mg/Prmx Q24H/IV Piperacillin Sod/ 115 ml @ 28.75 mls/hr 07/12/16 0200 Tazobactam Sod Q8H/IV 07/12/16 1814 3.375 gm/Dextrose Assessment & Plan Loading dose: vancomycin 1900 mg (25 mg/kg) IV X 1 dose then: vancomycin 1150 mg (15 mg/kg) IV every 12 hours. (population pharmacokinetic suggest a half-life of 11 hours with an elimination constant of 0.06 hr-1) Goal peak level estimate: between 35 - 40 mcg/mL. Goal trough level estimate: between 15 - 20 mcg/mL (bacteremia). Trough has been ordered for: prior to 10 am dose. Pharmacy will continue to follow and will adjust dose/frequency as necessary. Thank you
[2016-07-12] MEDS: LEVOFLOXACIN / D5W 750 MG in PREMIXED IN D5W 150 ML IV SCH (22:03)
[2016-07-12] MEDS ORDERED: MoRPHine SULFATE 4 MG/ML 1 ML CARP\\VIAL IV ONE (23:27)
[2016-07-13] MEDS: ONDANSETRON INJ 2 MG/ML 2 ML VIAL IV PRN ×2 (00:01→09:03)
[2016-07-13] MEDS: PIPERACILL/TAZOBAC IV 3.375 GM in DEXTROSE 5% 100ML 100 ML IV SCH ×3 (01:43→17:31)
[2016-07-13 03:00] VITALS: BP 103/68; PULSE 89; TEMP 37; O2SAT 93
[2016-07-13 03:09] LABS: HEMATOCRIT 30.1 % (42-52); MEAN CELL VOLUME 84.8 fL (80-100); MEAN CORPUSCULAR HEMOGLOBIN 28.7 pg (25-34); MEAN CORPUSCULAR HGB CONC 33.9 g/dl (32-36); MEAN PLATELET VOLUME 9.9 fL (7.4-10.4); PLATELET COUNT 266 K/uL (130-400); RED BLOOD COUNT 3.55 M/uL (4.7-6.1); WHITE BLOOD COUNT 8.56 K/uL (4.8-10.8)
[2016-07-13] MEDS: ZOLPIDEM TARTRATE 5 MG TAB PO PRN (03:10)
[2016-07-13 03:30] LABS: BUN/CREATININE RATIO 21.9 (10-20); POTASSIUM 3.3 mmol/L (3.5-5.1)
[2016-07-13 03:31] LABS: INR 1.2 (0.9-1.1); PARTIAL THROMBOPLASTIN RATIO 2.6; PROTHROMBIN TIME (PATIENT) 13.3 SECONDS (9.0-12.0)
[2016-07-13 03:33] LABS: ALB/GLOB RATIO 0.4 (0.9-2)
--- NOTE | 2016-07-13 06:52 | DIAGNOSTIC IMAGING REPORT ---
HEAD CT NONCONTRAST CT DOSE: 614.27 mGy.cm HISTORY: r/o bleed TECHNIQUE: Multiaxial CT images of the head were performed without the use of intravenous contrast. Automated exposure control was utilized for this study. Comparison: None. Findings: The paranasal sinuses and mastoid air cells are clear. The calvarium and skull base are intact. The ventricles and sulci are within normal limits. There is no mass, hematoma, midline shift, or acute infarct. Scattered foci of soft tissue gas within the skull base. This is likely due to intravenous line placement. Impression: No acute intracranial abnormality. Electronically signed by: Randall Richards M.D. 07/13/2016 6:51 AM
[2016-07-13] MEDS: SODIUM CHLORIDE 0.9% 1000ML 1,000 ML IV SCH ×4 (08:54→21:16)
[2016-07-13] MEDS: ASPIRIN 81 MG ECTAB PO SCH (08:54)
[2016-07-13 09:16] LABS: PARTIAL THROMBOPLASTIN RATIO 1.9
[2016-07-13] MEDS: HEPARIN 25,000 UNIT/500ML D5W 500 ML IV PRN ×2 (09:43→21:16)
[2016-07-13] MEDS: VANCOMYCIN INJ 1,150 MG in SODIUM CHLORIDE 0.9% 250ML 250 ML IV SCH ×2 (09:46→22:14)
[2016-07-13 11:53] VITALS: BP 108/70; PULSE 95; TEMP 36.9; O2SAT 91
[2016-07-13] MEDS: PROMETHAZINE HCL INJ 12.5 MG in SODIUM CHLORIDE 0.9% 50ML 50 ML IV PRN ×2 (13:14→23:39)
--- NOTE | 2016-07-13 14:03 | Progress Note ---
Medicine Progress Note Date & Time of Visit: Jul 13, 2016 at 14:03. Subjective Patient reports some ongoing nausea today, but denies any vomiting. No overnight events noted but patient does complain about being woken so frequently at night. No other complaints. States he coughs occasionally but not worsening. Tolerating full liquid diet without difficulty. Objective Last 8 Hrs Date Time Temp Pulse Resp B/P Pulse Ox O2 Delivery O2 Flow Rate FiO2 07/13/16 11:53 36.9 95 20 108/70 91 Room Air Physical Exam: GENERAL: Patient is in no acute distress. HEENT: No acute trauma, normocephalic, mucous membranes moist, no nasal congestion, no scleral icterus. NECK: No stridor, trachea is midline. LUNGS: Diminished bilaterally, no wheeze, no rhonchi, breath sounds equal. HEART: Without murmurs gallops or rubs, regular rate and rhythm. ABDOMEN: Soft, nontender, bowel sounds positive EXTREMITIES: No cyanosis or edema NEUROLOGIC: Oriented x 3, no acute motor or sensory deficits, no focal weakness. SKIN: No rash, no jaundice, no diaphoresis. Laboratory Results: Last 24 Hours Test 07/12/16 20:39 07/13/16 03:03 07/13/16 08:50 Activated Partial Thromboplast Time 32.2 SECONDS 67.1 SECONDS 48.1 SECONDS Partial Thromboplastin Ratio 1.2 2.6 1.9 White Blood Count 8.56 K/uL Red Blood Count 3.55 M/uL Hemoglobin 10.2 g/dL Hematocrit 30.1 % Mean Corpuscular Volume 84.8 fL Mean Corpuscular Hemoglobin 28.7 pg Mean Corpuscular Hemoglobin Concent 33.9 g/dl RDW Standard Deviation 47.4 fL RDW Coefficient of Variation 15.1 % Platelet Count 266 K/uL Mean Platelet Volume 9.9 fL Prothrombin Time 13.3 SECONDS Prothromb Time International Ratio 1.2 Sodium Level 138 mmol/L Potassium Level 3.3 mmol/L Chloride Level 106 mmol/L Carbon Dioxide Level 22 mmol/L Anion Gap 10.0 mmol/L Blood Urea Nitrogen 22 mg/dl Creatinine 1.00 mg/dl Est Creatinine Clear Calc Drug Dose 69.3 ml/min Estimated GFR () 89.9 Estimated GFR (Non- 77.5 BUN/Creatinine Ratio 21.9 Random Glucose 108 mg/dl Calcium Level 7.0 mg/dl Total Bilirubin 1.0 mg/dl Aspartate Amino Transf (AST/SGOT) 89 U/L Alanine Aminotransferase (ALT/SGPT) 40 U/L Alkaline Phosphatase 135 U/L Total Protein 5.5 gm/dl Albumin 1.6 gm/dl Globulin 3.9 gm/dl Albumin/Globulin Ratio 0.4 Assessment & Plan ACUTE PE AND DVT: -RUL peripheral PE and left peroneal DVT as seen on CTA and LE doppler -on IV heparin -coumadin started (overlap day 2) -unclear etiology, apparently no hypercoagulable labs were drawn in the ER, will need a full hypercoagulable workup once patient is off anticoagulation -no recent surgery/trauma/prolonged periods of immobility -patient is being followed for prostatic hypertrophy but denies any new symptoms ; has refused cancer screening colonoscopy on multiple occasions POSSIBLE SEPSIS: UNCLEAR SOURCE -presented with mildly productive cough, post-tussive vomiting and shaking chills -unclear source: ? urine vs. viral etiology -meets SIRS criteria with fever, tachycardia, hypotension and leukocytosis >13K -lactic acid 2.28 POC and 1.0 -negative flu -CXR: negative for acute process -blood and urine cultures pending -on IV fluids -on broad spectrum abx ( Zosyn and Levaquin) -patient has also required HIV testing which is pending ELEVATED TROPONIN: -troponin was 2.97; but has been trending down -most likely elevated due to PE, and possibly from acute sepsis vs. demand ischemia from tachycardia -EKG sinus tach with no evidence of ischemia -no chest pain -no wall motion abnormalities noted on TTE -is already on anticoagulation for PE HEMATURIA: -pt reports passing kidney stone a few days ago -UA 2+ blood; urine cultures with no growth -Renal US: bilateral nephrolithiasis, prostatic hypertrophy and nonspecific bladder wall thickening unchanged from prior US -denies any additional urinary symptoms Current Inpatient Medications: Current Inpatient Medications Medications (Trade) Dose Ordered Sig/Amrit Route Start Time Stop Time Status Last Admin Dose Admin Sodium Chloride (Nss 1000ml) 1,000 ml @ 125 mls/hr Q8H IV 07/11/16 21:55 08/10/16 21:54 07/13/16 08:54 125 MLS/HR Ondansetron HCl (Zofran Inj) 4 mg Q6H PRN IV 07/11/16 22:00 08/10/16 21:59 07/13/16 09:03 4 MG Nitroglycerin (Nitrostat Tab) 0.4 mg UD PRN SL 07/11/16 22:00 08/10/16 21:59 Piperacillin Sod/ Tazobactam Sod 1 ea 1 ea UD PRN N/A 07/11/16 22:04 08/10/16 22:03 Piperacillin Sod/ Tazobactam Sod 3.375 gm/Dextrose 115 ml @ 28.75 mls/ hr Q8H IV 07/12/16 02:00 07/21/16 23:59 07/13/16 09:46 28.75 MLS/HR Levofloxacin/Prmx (Levaquin / D5w/ Premixed D5W) 150 ml @ 100 mls/hr Q24H IV 07/12/16 22:00 07/21/16 23:59 07/12/16 22:03 100 MLS/HR Levofloxacin (Consult) 1 ea UD PRN N/A 07/11/16 22:15 08/10/16 22:14 Ioversol 125 ml 125 ml UD PRN IV 07/12/16 00:30 07/16/16 00:29 Heparin Sodium/ Dextrose (Heparin 25,000 Unit/500ml D5W) 500 ml @ 41 mls/hr [id number] PRN IV 07/12/16 02:15 07/26/16 02:14 07/13/16 09:43 41 MLS/HR Zolpidem Tartrate (Ambien Tab) 5 mg HSZ PRN PO 07/12/16 03:45 08/11/16 03:44 07/13/16 03:10 5 MG Aspirin (Ecotrin Tab) 81 mg QAM PO 07/12/16 09:00 08/11/16 08:59 07/13/16 08:54 81 MG Warfarin Sodium (Coumadin Tab) 5 mg DAILY@16 PO 07/12/16 16:00 08/11/16 15:59 07/12/16 17:13 5 MG Tramadol HCl (Ultram Tab) 50 mg Q6H PRN PO 07/12/16 20:45 08/11/16 20:44 07/12/16 20:58 50 MG Vancomycin HCl 1 ea 1 ea UD PRN N/A 07/12/16 20:52 08/11/16 20:51 Vancomycin HCl/ Sodium Chloride (Vancomycin Inj/ Nss 250ml) 273 ml @ 125 mls/hr Q12H IV 07/13/16 10:00 07/22/16 23:59 07/13/16 09:46 125 MLS/HR Morphine Sulfate 4 mg 4 mg Q6H PRN IV 07/12/16 23:30 07/26/16 23:29 Promethazine HCl/ Sodium Chloride (Phenergan Inj/ Nss 50ml) 50.5 ml @ 204 mls/hr Q6H PRN IV 07/13/16 12:30 08/12/16 12:29 07/13/16 13:14 204 MLS/HR
[2016-07-13 15:52] VITALS: BP 111/77; PULSE 81; TEMP 36.9; O2SAT 95
[2016-07-13] MEDS: WARFARIN SOD 5 MG TAB PO SCH (17:31)
[2016-07-13 19:39] VITALS: BP 108/72; PULSE 106; TEMP 37.5; O2SAT 94
[2016-07-13] MEDS: LEVOFLOXACIN / D5W 750 MG in PREMIXED IN D5W 150 ML IV SCH (22:15)
[2016-07-13 23:29] VITALS: BP 125/79; PULSE 100; TEMP 38.8; O2SAT 93
[2016-07-13] MEDS ORDERED: IBUPROFEN 600 MG TAB ONE (23:29)
[2016-07-13] MEDS: IBUPROFEN 200 MG TAB PO PRN (23:39)
[2016-07-14] MEDS: PIPERACILL/TAZOBAC IV 3.375 GM in DEXTROSE 5% 100ML 100 ML IV SCH ×3 (01:51→18:07)
[2016-07-14] MEDS: SODIUM CHLORIDE 0.9% 1000ML 1,000 ML IV SCH ×2 (01:52→08:26)
[2016-07-14 06:32] LABS: HEMATOCRIT 30.4 % (42-52); MEAN CELL VOLUME 85.9 fL (80-100); MEAN CORPUSCULAR HEMOGLOBIN 28.5 pg (25-34); MEAN CORPUSCULAR HGB CONC 33.2 g/dl (32-36); PLATELET COUNT 301 K/uL (130-400); RED BLOOD COUNT 3.54 M/uL (4.7-6.1); WHITE BLOOD COUNT 7.55 K/uL (4.8-10.8)
[2016-07-14 06:40] LABS: INR 2.2 (0.9-1.1); PROTHROMBIN TIME (PATIENT) 24.8 SECONDS (9.0-12.0)
[2016-07-14 07:12] LABS: ALB/GLOB RATIO 0.4 (0.9-2); BUN/CREATININE RATIO 14.3 (10-20); CALCIUM 7.3 mg/dl (8.5-10.1); POTASSIUM 3.3 mmol/L (3.5-5.1)
[2016-07-14 08:00] VITALS: BP 131/70; PULSE 98; TEMP 37.4; O2SAT 98
[2016-07-14] MEDS ORDERED: POTASSIUM CHLORIDE 20 MEQ TABCR PO STA (08:19)
[2016-07-14] MEDS: ASPIRIN 81 MG ECTAB PO SCH (08:21)
[2016-07-14] MEDS: HEPARIN 25,000 UNIT/500ML D5W 500 ML IV PRN ×2 (08:53→21:05)
[2016-07-14] MEDS ORDERED: VANCOMYCIN TROUGH SCH (09:30)
[2016-07-14] MEDS: VANCOMYCIN INJ 1,150 MG in SODIUM CHLORIDE 0.9% 250ML 250 ML IV SCH (10:05)
[2016-07-14 12:00] VITALS: BP 124/63; PULSE 89; TEMP 37.2; O2SAT 98
[2016-07-14 12:33] LABS: PARTIAL THROMBOPLASTIN RATIO 2.7
[2016-07-14 15:37] VITALS: BP 119/76; PULSE 94; TEMP 37.3; O2SAT 94
[2016-07-14] MEDS: PROMETHAZINE HCL INJ 12.5 MG in SODIUM CHLORIDE 0.9% 50ML 50 ML IV PRN (16:23)
[2016-07-14] MEDS: WARFARIN SOD 2 MG TAB PO SCH (16:24)
--- NOTE | 2016-07-14 19:24 | Progress Note ---
Medicine Progress Note Date & Time of Visit: Jul 14, 2016 at 19:12. Subjective Patient denies any new complaints, states he is feeling better than when he first came into the hospital. No overnight events noted. Has occasional cough that is non-productive. Also reports occasional nausea without vomiting. States his stools are looser than usual but not diarrhea. Is tolerating solid foods. Objective Last 8 Hrs Date Time Temp Pulse Resp B/P Pulse Ox O2 Delivery O2 Flow Rate FiO2 07/14/16 16:05 Room Air 07/14/16 15:37 37.3 94 20 119/76 94 Room Air 07/14/16 12:05 Room Air 07/14/16 12:00 37.2 89 18 124/63 98 Physical Exam: GENERAL: Patient is in no acute distress. HEENT: No acute trauma, normocephalic, mucous membranes moist, no nasal congestion, no scleral icterus. NECK: No stridor, trachea is midline. LUNGS: Diminished bilaterally, no wheeze, no rhonchi, breath sounds equal. HEART: Without murmurs gallops or rubs, regular rate and rhythm. ABDOMEN: Soft, nontender, bowel sounds positive EXTREMITIES: No cyanosis or edema NEUROLOGIC: Oriented x 3, no acute motor or sensory deficits, no focal weakness. SKIN: No rash, no jaundice, no diaphoresis. Laboratory Results: Last 24 Hours Test 07/14/16 06:10 07/14/16 09:45 07/14/16 11:50 White Blood Count 7.55 K/uL Red Blood Count 3.54 M/uL Hemoglobin 10.1 g/dL Hematocrit 30.4 % Mean Corpuscular Volume 85.9 fL Mean Corpuscular Hemoglobin 28.5 pg Mean Corpuscular Hemoglobin Concent 33.2 g/dl RDW Standard Deviation 48.9 fL RDW Coefficient of Variation 15.4 % Platelet Count 301 K/uL Mean Platelet Volume 10.0 fL Prothrombin Time 24.8 SECONDS Prothromb Time International Ratio 2.2 Sodium Level 140 mmol/L Potassium Level 3.3 mmol/L Chloride Level 107 mmol/L Carbon Dioxide Level 24 mmol/L Anion Gap 9.0 mmol/L Blood Urea Nitrogen 14 mg/dl Creatinine 1.00 mg/dl Est Creatinine Clear Calc Drug Dose 76.4 ml/min Estimated GFR () 89.9 Estimated GFR (Non- 77.5 BUN/Creatinine Ratio 14.3 Random Glucose 98 mg/dl Calcium Level 7.3 mg/dl Total Bilirubin 0.9 mg/dl Aspartate Amino Transf (AST/SGOT) 58 U/L Alanine Aminotransferase (ALT/SGPT) 34 U/L Alkaline Phosphatase 147 U/L Total Protein 5.5 gm/dl Albumin 1.5 gm/dl Globulin 4.0 gm/dl Albumin/Globulin Ratio 0.4 Lipase 145 U/L Vancomycin Level Trough 11.8 mcg/ml Activated Partial Thromboplast Time 69.9 SECONDS Partial Thromboplastin Ratio 2.7 Date/Time Source Procedure Growth Status 07/14/16 16:35 Stool C.difficile Toxin B Gene (PCR) - Final No C. difficile toxin B gene detected Complete Assessment & Plan ACUTE PE AND DVT: -RUL peripheral PE and left peroneal DVT as seen on CTA and LE doppler -on IV heparin -coumadin started (overlap day 3); INR is 2.2 today -unclear etiology, apparently no hypercoagulable labs were drawn in the ER, will need a full hypercoagulable workup once patient is off anticoagulation -no recent surgery/trauma/prolonged periods of immobility -patient is being followed for prostatic hypertrophy but denies any new symptoms ; has refused cancer screening colonoscopy on multiple occasions POSSIBLE SEPSIS: UNCLEAR SOURCE -presented with mildly productive cough, post-tussive vomiting and shaking chills -unclear source: ? urine vs. viral etiology -meets SIRS criteria with fever, tachycardia, hypotension and leukocytosis >13K -lactic acid 2.28 POC and 1.0 on repeat -negative flu -CXR: negative for acute process -blood cultures 1/2 growing group C beta strep; repeat blood cultures in the AM -on IV fluids, will stop now as PO intake improved -on broad spectrum abx ( Zosyn and Levaquin) -patient has also required HIV testing which is pending, he is aware the initial is positive but the confirmatory is pending ELEVATED TROPONIN: -troponin was 2.97; but has been trending down -most likely elevated due to PE, and possibly from acute sepsis vs. demand ischemia from tachycardia -EKG: sinus tach with no evidence of ischemia on admission -no chest pain -no wall motion abnormalities noted on TTE -is already on anticoagulation for PE HEMATURIA: -pt reports passing kidney stone a few days prior to admission -UA 2+ blood; urine cultures with no growth -Renal US: bilateral nephrolithiasis, prostatic hypertrophy and nonspecific bladder wall thickening unchanged from prior US -denies any additional urinary symptoms Current Inpatient Medications: Current Inpatient Medications Medications (Trade) Dose Ordered Sig/Amrit Route Start Time Stop Time Status Last Admin Dose Admin Ondansetron HCl (Zofran Inj) 4 mg Q6H PRN IV 07/11/16 22:00 08/10/16 21:59 07/13/16 09:03 4 MG Nitroglycerin (Nitrostat Tab) 0.4 mg UD PRN SL 07/11/16 22:00 08/10/16 21:59 Piperacillin Sod/ Tazobactam Sod 1 ea 1 ea UD PRN N/A 07/11/16 22:04 08/10/16 22:03 Piperacillin Sod/ Tazobactam Sod 3.375 gm/Dextrose 115 ml @ 28.75 mls/ hr Q8H IV 07/12/16 02:00 07/21/16 23:59 07/14/16 18:07 28.75 MLS/HR Levofloxacin/Prmx (Levaquin / D5w/ Premixed D5W) 150 ml @ 100 mls/hr Q24H IV 07/12/16 22:00 07/21/16 23:59 07/13/16 22:15 100 MLS/HR Levofloxacin (Consult) 1 ea UD PRN N/A 07/11/16 22:15 08/10/16 22:14 Ioversol 125 ml 125 ml UD PRN IV 07/12/16 00:30 07/16/16 00:29 Heparin Sodium/ Dextrose (Heparin 25,000 Unit/500ml D5W) 500 ml @ 41 mls/hr [id number] PRN IV 07/12/16 02:15 07/26/16 02:14 07/14/16 08:53 41 MLS/HR Zolpidem Tartrate (Ambien Tab) 5 mg HSZ PRN PO 07/12/16 03:45 08/11/16 03:44 07/13/16 03:10 5 MG Aspirin (Ecotrin Tab) 81 mg QAM PO 07/12/16 09:00 08/11/16 08:59 07/14/16 08:21 81 MG Tramadol HCl (Ultram Tab) 50 mg Q6H PRN PO 07/12/16 20:45 08/11/16 20:44 07/12/16 20:58 50 MG Morphine Sulfate 4 mg 4 mg Q6H PRN IV 07/12/16 23:30 07/26/16 23:29 Promethazine HCl/ Sodium Chloride (Phenergan Inj/ Nss 50ml) 50.5 ml @ 204 mls/hr Q6H PRN IV 07/13/16 12:30 08/12/16 12:29 07/14/16 16:23 204 MLS/HR Ibuprofen (Advil Tab) 200 mg Q6H PRN PO 07/13/16 23:15 08/12/16 23:14 07/13/16 23:39 200 MG Warfarin Sodium (Coumadin Tab) 2 mg DAILY@16 PO 07/14/16 16:00 08/13/16 15:59 07/14/16 16:24 2 MG
[2016-07-14 19:45] VITALS: BP 133/83; PULSE 102; TEMP 39.2; O2SAT 93
[2016-07-14] MEDS: IBUPROFEN 200 MG TAB PO PRN (19:49)
[2016-07-14 20:00] VITALS: O2SAT 93
[2016-07-14] MEDS: LEVOFLOXACIN / D5W 750 MG in PREMIXED IN D5W 150 ML IV SCH (22:18)
[2016-07-14 23:15] VITALS: BP 114/72; PULSE 96; TEMP 38; O2SAT 92
[2016-07-15] VITALS (12 sets, daily range): BP systolic 116–147; BP diastolic 70–84; PULSE 86–101; TEMP 36.9–38; O2SAT 92–95
[2016-07-15] MEDS: ZOLPIDEM TARTRATE 5 MG TAB PO PRN ×2 (00:19→23:36)
[2016-07-15] MEDS: ONDANSETRON INJ 2 MG/ML 2 ML VIAL IV PRN ×2 (00:19→07:12)
[2016-07-15] MEDS: PIPERACILL/TAZOBAC IV 3.375 GM in DEXTROSE 5% 100ML 100 ML IV SCH ×3 (02:24→17:31)
[2016-07-15 04:30] LABS: HEMATOCRIT 30.8 % (42-52); MEAN CELL VOLUME 84.8 fL (80-100); MEAN CORPUSCULAR HEMOGLOBIN 28.4 pg (25-34); MEAN CORPUSCULAR HGB CONC 33.4 g/dl (32-36); MEAN PLATELET VOLUME 9.5 fL (7.4-10.4); PLATELET COUNT 331 K/uL (130-400); RED BLOOD COUNT 3.63 M/uL (4.7-6.1); WHITE BLOOD COUNT 6.87 K/uL (4.8-10.8)
[2016-07-15 04:50] LABS: BUN/CREATININE RATIO 11.2 (10-20); CREATININE 0.98 mg/dl (0.60-1.40); POTASSIUM 3.3 mmol/L (3.5-5.1)
[2016-07-15 04:53] LABS: CALCIUM 7.7 mg/dl (8.5-10.1); INR 2.8 (0.9-1.1); PARTIAL THROMBOPLASTIN RATIO 2.5; PROTHROMBIN TIME (PATIENT) 31.3 SECONDS (9.0-12.0)
[2016-07-15] MEDS: ASPIRIN 81 MG ECTAB PO SCH (09:13)
[2016-07-15] MEDS: HEPARIN 25,000 UNIT/500ML D5W 500 ML IV PRN ×2 (09:46→21:45)
[2016-07-15] MEDS ORDERED: POTASSIUM CHLORIDE 20 MEQ TABCR PO STA (10:38)
--- NOTE | 2016-07-15 11:09 | Progress Note ---
Internal Med Progress Note Date of Service: Jul 15, 2016. Provider Documentation: SUBJECTIVE: The patient was seen and examined No more fever this morning but has sweating Chest pain on right side on deep inspiration No Abdominal pain,nausea and or vomiting OBJECTIVE: Vital Signs-as noted below Exam: General-no distress at rest Sweating Eyes-normal ENT-normal Neck-supple Lungs-decreased breath sound at the right base Heart-Regular,no murmur appreciated Abdomen-Benign,no masses,bowel sound present Extremities-No edema Neuro-AAOx3 Lab data as noted below. ASSESSMENT & PLAN: Ongoing Fever Continue Antibiotics Repeat CXR and Blood cultures Hypokalemia Supplement and recheck ACUTE PE AND DVT: -RUL peripheral PE and left peroneal DVT as seen on CTA and LE doppler -Has been on IV heparin and Coumadin started INR is 2.2 on 07/14/17 ,overlap Day #2 -Hypercoagulable work up was not sent initially:will send a few and remaining ones need to be done off Anticoagulation -no recent surgery/trauma/prolonged periods of immobility -patient is being followed for prostatic hypertrophy but denies any new symptoms ; has refused cancer screening colonoscopy on multiple occasions -clinically much better today POSSIBLE SEPSIS: UNCLEAR SOURCE -presented with mildly productive cough, post-tussive vomiting and shaking chills -meets SIRS criteria with fever, tachycardia, hypotension and leukocytosis >13K -lactic acid 2.28 POC and 1.0 on repeat -blood cultures 1/2 growing group C beta strep; repeat blood cultures -on broad spectrum abx ( Zosyn and Levaquin) -patient has also required HIV testing which is pending, he is aware the initial is positive but the confirmatory is pending -Initial CXR was negative for any consolidation -Repeat CXR to r/o any pneumonia /effusion Positive HIV -preliminary Await confirmatory test Patient aware ELEVATED TROPONIN: -troponin was 2.97; but has been trending down -most likely elevated due to PE, and possibly from acute sepsis vs. demand ischemia from tachycardia -EKG: sinus tach with no evidence of ischemia on admission -no wall motion abnormalities noted on TTE -is already on anticoagulation for PE HEMATURIA: -pt reports passing kidney stone a few days prior to admission -UA 2+ blood; urine cultures with no growth -Renal US: bilateral nephrolithiasis, prostatic hypertrophy and nonspecific bladder wall thickening unchanged from prior US -denies any additional urinary symptoms DVT PROPHYLAXIS IV Heparin and Oral Coumadin INR therapeutic since 07/14/16 DISPOSITION Awaited Discussed with the Family members Vital Signs: Date Time Temp Pulse Resp B/P Pulse Ox O2 Delivery O2 Flow Rate FiO2 07/15/16 07:50 92 Room Air 07/15/16 07:30 37.4 95 18 138/84 92 Room Air 07/15/16 04:15 Room Air 07/15/16 04:08 37.8 95 18 121/78 92 Room Air 07/15/16 00:20 92 Room Air 07/14/16 23:15 38.0 96 16 114/72 92 Room Air 07/14/16 20:00 93 Room Air 07/14/16 19:45 39.2 102 16 133/83 93 Room Air 07/14/16 16:05 Room Air 07/14/16 15:37 37.3 94 20 119/76 94 Room Air 07/14/16 12:05 Room Air 07/14/16 12:00 37.2 89 18 124/63 98 Lab Results: Results Past 24 Hours Test 07/14/16 11:50 07/15/16 04:00 07/15/16 10:20 Range/Units Activated Partial Thromboplast Time 69.9 65.1 21.0-31.0 SECONDS Partial Thromboplastin Ratio 2.7 2.5 White Blood Count 6.87 4.8-10.8 K/uL Red Blood Count 3.63 4.7-6.1 M/uL Hemoglobin 10.3 14.0-18.0 g/dL Hematocrit 30.8 42-52 % Mean Corpuscular Volume 84.8 80-100 fL Mean Corpuscular Hemoglobin 28.4 25-34 pg Mean Corpuscular Hemoglobin Concent 33.4 32-36 g/dl RDW Standard Deviation 48.0 36.4-46.3 fL RDW Coefficient of Variation 15.3 11.5-14.5 % Platelet Count 331 130-400 K/uL Mean Platelet Volume 9.5 7.4-10.4 fL Prothrombin Time 31.3 9.0-12.0 SECONDS Prothromb Time International Ratio 2.8 0.9-1.1 Sodium Level 140 136-145 mmol/L Potassium Level 3.3 3.5-5.1 mmol/L Chloride Level 107 98-107 mmol/L Carbon Dioxide Level 24 21-32 mmol/L Anion Gap 9.0 3-11 mmol/L Blood Urea Nitrogen 11 7-18 mg/dl Creatinine 0.98 0.60-1.40 mg/dl Est Creatinine Clear Calc Drug Dose 77.9 ml/min Estimated GFR () 92.1 Estimated GFR (Non- 79.5 BUN/Creatinine Ratio 11.2 10-20 Random Glucose 95 70-99 mg/dl Calcium Level 7.7 8.5-10.1 mg/dl Microbiology Results 07/15/16 Blood Culture, Received Pending 07/15/16 Blood Culture, Received Pending 07/14/16 C.difficile Toxin B Gene (PCR) - Final, Complete No C. difficile toxin B gene detected
--- NOTE | 2016-07-15 12:48 | DIAGNOSTIC IMAGING REPORT ---
TWO VIEW CHEST CLINICAL HISTORY: Pneumonia. Sepsis. FINDINGS: PA and lateral chest radiographs are compared to study dated 07/11/2016 and correlated with chest CT dated 07/12/2016. The PA view is degraded by patient rotation. The heart is top normal for projection. There is mild congestion of the central pulmonary vasculature. There are small pleural effusions and bibasilar consolidation. The pleural effusions are new from 07/12/2016. The upper lobes appear clear. There is no pneumothorax. The skeletal structures are osteopenic. The bony thorax appears intact. IMPRESSION: 1. Question mild pulmonary vascular congestion. Clinical correlation will be required. 2. There are small pleural effusions, which are new from 07/12/2016. 3. There is associated bibasilar consolidation. This likely represents atelectasis. Clinical correlation will be required. Electronically signed by: Kilo Rasheed M.D. 07/15/2016 12:47 PM
[2016-07-15] MEDS: IBUPROFEN 200 MG TAB PO PRN (15:25)
[2016-07-15] MEDS: WARFARIN SOD 2 MG TAB PO SCH (15:27)
[2016-07-15] MEDS: LEVOFLOXACIN / D5W 750 MG in PREMIXED IN D5W 150 ML IV SCH (21:42)
[2016-07-16] VITALS (8 sets, daily range): BP systolic 116–131; BP diastolic 76–83; PULSE 94–108; TEMP 36.9–37.3; O2SAT 92–93
[2016-07-16] MEDS: PIPERACILL/TAZOBAC IV 3.375 GM in DEXTROSE 5% 100ML 100 ML IV SCH ×3 (01:55→17:56)
[2016-07-16] MEDS: ONDANSETRON INJ 2 MG/ML 2 ML VIAL IV PRN (04:19)
[2016-07-16] MEDS: MoRPHine SULFATE 4 MG/ML 1 ML CARP\\VIAL IV PRN ×2 (04:20→21:08)
[2016-07-16] MEDS: TRAMADOL HCL 50 MG TAB PO PRN ×3 (05:16→17:56)
[2016-07-16] MEDS ORDERED: CYCLOBENZAPRINE HCL 5 MG TAB PO STA (06:05)
[2016-07-16 07:36] LABS: INR 3.5 (0.9-1.1)
[2016-07-16] MEDS: ASPIRIN 81 MG ECTAB PO SCH (08:40)
[2016-07-16] MEDS: HEPARIN 25,000 UNIT/500ML D5W 500 ML IV PRN (10:43)
[2016-07-16] MEDS ORDERED: POTASSIUM CHLORIDE 10 MEQ TABCR PO STA (10:46)
--- NOTE | 2016-07-16 11:34 | DIAGNOSTIC IMAGING REPORT ---
RIGHT HIP UNILATERAL 2 VIEWS CLINICAL HISTORY: Right hip pain. COMPARISON: None. DISCUSSION: There are moderate osteoarthritic changes with superior joint space narrowing. There are femoral head osteophytes. There are no acute fractures. There are surgical clips within the pelvis. IMPRESSION: 1. No acute fractures 2. Moderate osteoarthritic changes. Electronically signed by: Carloz Abdullahi M.D. 07/16/2016 11:33 AM
[2016-07-16] MEDS: WARFARIN SOD 2 MG TAB PO SCH (15:46)
--- NOTE | 2016-07-16 16:56 | Progress Note ---
Internal Med Progress Note Date of Service: Jul 16, 2016. Provider Documentation: SUBJECTIVE: The patient was seen and examined No more fever this morning but has sweating Clinically better Complains of pain in right Hip with every movement OBJECTIVE: Vital Signs-as noted below Exam: General-no distress at rest Sweating Eyes-normal ENT-normal Neck-supple Lungs-decreased breath sound at the right base Heart-Regular,no murmur appreciated Abdomen-Benign,no masses,bowel sound present Extremities-No edema Right Hip movement is moderately restricted with pain on Movement No acute arthritis Neuro-AAOx3 Lab data as noted below. ASSESSMENT & PLAN: Ongoing Fever Continue Antibiotics Repeat CXR and Blood cultures-both negative No More fever Admits to sweat easily Right Hip Pain Likely arthritis Try Ultram Hip X-ray Hypokalemia Supplement again and recheck ACUTE PE AND DVT: -RUL peripheral PE and left peroneal DVT as seen on CTA and LE doppler -Has been on IV heparin and Coumadin started INR is 2.2 on 07/14/17 ,overlap Day #3 -Hypercoagulable work up was not sent initially:will send a few and remaining ones need to be done off Anticoagulation -no recent surgery/trauma/prolonged periods of immobility -patient is being followed for prostatic hypertrophy but denies any new symptoms ; has refused cancer screening colonoscopy on multiple occasions -clinically much better today -likely home on 07/19/16 POSSIBLE SEPSIS: UNCLEAR SOURCE -presented with mildly productive cough, post-tussive vomiting and shaking chills -meets SIRS criteria with fever, tachycardia, hypotension and leukocytosis >13K -lactic acid 2.28 POC and 1.0 on repeat -blood cultures 1/2 growing group C beta strep; repeat blood cultures -on broad spectrum abx ( Zosyn and Levaquin) -patient has also required HIV testing which is pending, he is aware the initial is positive but the confirmatory is pending -Initial CXR was negative for any consolidation -Repeat CXR to r/o any pneumonia /effusion -will continue with Levaquin only Positive HIV -preliminary Await confirmatory test Patient aware ELEVATED TROPONIN: -troponin was 2.97; but has been trending down -most likely elevated due to PE, and possibly from acute sepsis vs. demand ischemia from tachycardia -EKG: sinus tach with no evidence of ischemia on admission -no wall motion abnormalities noted on TTE -is already on anticoagulation for PE HEMATURIA: -pt reports passing kidney stone a few days prior to admission -UA 2+ blood; urine cultures with no growth -Renal US: bilateral nephrolithiasis, prostatic hypertrophy and nonspecific bladder wall thickening unchanged from prior US -denies any additional urinary symptoms DVT PROPHYLAXIS IV Heparin and Oral Coumadin INR therapeutic since 07/14/16 DISPOSITION Awaited Discussed with the Family members Vital Signs: Date Time Temp Pulse Resp B/P Pulse Ox O2 Delivery O2 Flow Rate FiO2 07/16/16 16:00 Room Air 07/16/16 15:13 36.9 104 20 116/77 92 Room Air 07/16/16 12:00 Room Air 07/16/16 11:27 36.9 94 19 117/77 92 Room Air 07/16/16 08:00 Room Air 07/16/16 07:48 36.9 97 18 130/81 92 Room Air 07/16/16 04:32 37.0 97 18 126/83 92 Room Air 07/16/16 04:20 92 Room Air 07/16/16 00:00 Room Air 07/15/16 23:24 36.9 86 18 119/78 93 Room Air 07/15/16 20:10 92 Room Air 07/15/16 18:45 37.0 92 18 116/70 92 Room Air Lab Results: Results Past 24 Hours Test 07/16/16 06:58 Range/Units Prothrombin Time 40.0 9.0-12.0 SECONDS Prothromb Time International Ratio 3.5 0.9-1.1
[2016-07-16 20:07] LABS: PARTIAL THROMBOPLASTIN RATIO 5.8
[2016-07-16 21:25] LABS: PARTIAL THROMBOPLASTIN RATIO 2.4
--- NOTE | 2016-07-16 21:43 | DIAGNOSTIC IMAGING REPORT ---
CT OF THE RIGHT HIP CT DOSE: 666.47 mGy.cm HISTORY: Pain R hip pain Right TECHNIQUE: Multiaxial CT images of the right hip were performed and reformatted in the sagittal and coronal plane without the use of contrast. COMPARISON: None FINDINGS: Moderate generalized degenerative change of the right hip. Narrowing of the joint space. Peripheral osteophytic change throughout. No lytic or blastic process. Findings of generalized soft tissue as well as muscular edematous change about the right hip and upper thigh. This includes the pelvic musculature and lateral position of the right. Several surgical clips are identified medial to this abnormality. Diagnostic considerations include generalized hematoma, cellulitis, versus soft tissue mass. A fully enhanced scan of the abdomen and pelvis would be of further assistance for evaluation. IMPRESSION: 1. Restricted study due to the absence of contrast enhancement of any type. 2. Generalized degenerative change of the right hip with no well-defined acute bony abnormality. 3. Generalized soft tissue edematous change about the upper thigh and right hip including subcutaneous fat as well as musculature 4. Enlargement of the musculature right lateral soft tissue pelvis as well as anterior to the right hip. 5. Diagnostic considerations include generalized edema and/or hematoma-like change. 6. Possibility of mass pathology is not entirely excluded. 7. A fully enhanced scan] of the abdomen and pelvis and upper thighs with intravenous and oral contrast would be helpful as follow-up Electronically signed by: Antoine Sheldon M.D. 07/16/2016 9:41 PM
[2016-07-16] MEDS ORDERED: FUROSEMIDE INJ 20 MG in SYRINGE 0 ML IV STA (22:17)
[2016-07-16] MEDS ORDERED: OPTIRAY 320 IV PRN (22:30)
[2016-07-16 22:31] LABS: PROTHROMBIN TIME (PATIENT) 44.8 SECONDS (9.0-12.0)
[2016-07-16 22:49] LABS: BASO % 0.1 %; BASO ABS # 0.01 K/uL (0-0.2); COMPLETE YES; EOS % 0.8 %; HEMATOCRIT 28.6 % (42-52); IG% 3.7 %; LYMPH % 11.2 %; LYMPH ABS # 0.82 K/uL (1.2-3.4); MEAN CELL VOLUME 83.9 fL (80-100); MEAN CORPUSCULAR HEMOGLOBIN 28.2 pg (25-34); MEAN CORPUSCULAR HGB CONC 33.6 g/dl (32-36); MEAN PLATELET VOLUME 9.1 fL (7.4-10.4); MONO % 7.9 %; NEUT % 76.3 %; PLATELET COUNT 354 K/uL (130-400); RED BLOOD COUNT 3.41 M/uL (4.7-6.1)
[2016-07-16] MEDS: LEVOFLOXACIN / D5W 750 MG in PREMIXED IN D5W 150 ML IV SCH (23:05)
--- NOTE | 2016-07-16 23:56 | Progress Note ---
Internal Med Progress Note Date of Service: Jul 16, 2016. Provider Documentation: Made aware by RN around 830 PM of worsening R hip pain px noted to have supratherapeutic PT, PTT CT abd pelvis initial read retroperitoneal hematoma vs abscess HH stable at [address] results hold heparin, coumadin, ASA for now will relay to AM provider. Vital Signs: Date Time Temp Pulse Resp B/P Pulse Ox O2 Delivery O2 Flow Rate FiO2 07/17/16 08:08 37.5 102 18 109/68 92 07/17/16 08:00 Room Air 07/17/16 04:21 37.0 104 18 115/79 92 Room Air 07/17/16 04:00 92 Room Air 07/17/16 00:01 92 Room Air 07/16/16 23:48 37.0 108 18 131/82 92 Room Air 07/16/16 20:00 93 Room Air 07/16/16 19:14 37.3 101 20 118/76 93 Room Air 07/16/16 16:00 Room Air 07/16/16 15:13 36.9 104 20 116/77 92 Room Air 07/16/16 12:00 Room Air 07/16/16 11:27 36.9 94 19 117/77 92 Room Air Lab Results: Results Past 24 Hours Test 07/16/16 19:33 07/16/16 20:55 07/16/16 22:40 07/17/16 04:41 Range/Units Activated Partial Thromboplast Time 150.1 62.0 21.0-31.0 SECONDS Partial Thromboplastin Ratio 5.8 2.4 Prothrombin Time 44.8 39.5 9.0-12.0 SECONDS Prothromb Time International Ratio 4.0 3.5 0.9-1.1 White Blood Count 7.30 7.51 4.8-10.8 K/uL Red Blood Count 3.41 3.44 4.7-6.1 M/uL Hemoglobin 9.6 9.7 14.0-18.0 g/dL Hematocrit 28.6 29.6 42-52 % Mean Corpuscular Volume 83.9 86.0 80-100 fL Mean Corpuscular Hemoglobin 28.2 28.2 25-34 pg Mean Corpuscular Hemoglobin Concent 33.6 32.8 32-36 g/dl Platelet Count 354 403 130-400 K/uL Mean Platelet Volume 9.1 9.2 7.4-10.4 fL Neutrophils (%) (Auto) 76.3 73.2 % Lymphocytes (%) (Auto) 11.2 13.0 % Monocytes (%) (Auto) 7.9 9.2 % Eosinophils (%) (Auto) 0.8 0.7 % Basophils (%) (Auto) 0.1 0.3 % Neutrophils # (Auto) 5.56 5.50 1.4-6.5 K/uL Lymphocytes # (Auto) 0.82 0.98 1.2-3.4 K/uL Monocytes # (Auto) 0.58 0.69 0.11-0.59 K/uL Eosinophils # (Auto) 0.06 0.05 0-0.5 K/uL Basophils # (Auto) 0.01 0.02 0-0.2 K/uL RDW Standard Deviation 47.8 49.4 36.4-46.3 fL RDW Coefficient of Variation 15.5 15.6 11.5-14.5 % Immature Granulocyte % (Auto) 3.7 3.6 % Immature Granulocyte # (Auto) 0.27 0.27 0.00-0.02 K/uL Sodium Level 138 136-145 mmol/L Potassium Level 3.7 3.5-5.1 mmol/L Chloride Level 103 98-107 mmol/L Carbon Dioxide Level 28 21-32 mmol/L Anion Gap 7.0 3-11 mmol/L Blood Urea Nitrogen 8 7-18 mg/dl Creatinine 1.00 0.60-1.40 mg/dl Est Creatinine Clear Calc Drug Dose 78.1 ml/min Estimated GFR () 89.9 Estimated GFR (Non- 77.5 BUN/Creatinine Ratio 7.5 10-20 Random Glucose 105 70-99 mg/dl Calcium Level 8.0 8.5-10.1 mg/dl
[2016-07-17] VITALS (9 sets, daily range): BP systolic 104–129; BP diastolic 68–84; PULSE 97–112; TEMP 37–37.5; O2SAT 90–93
[2016-07-17] MEDS: TRAMADOL HCL 50 MG TAB PO PRN (00:30)
[2016-07-17] MEDS: ONDANSETRON INJ 2 MG/ML 2 ML VIAL IV PRN ×4 (01:03→22:45)
[2016-07-17] MEDS: PIPERACILL/TAZOBAC IV 3.375 GM in DEXTROSE 5% 100ML 100 ML IV SCH ×2 (02:00→11:03)
[2016-07-17 05:16] LABS: BASO % 0.3 %; BASO ABS # 0.02 K/uL (0-0.2); COMPLETE YES; EOS % 0.7 %; HEMATOCRIT 29.6 % (42-52); IG% 3.6 %; LYMPH ABS # 0.98 K/uL (1.2-3.4); MEAN CORPUSCULAR HEMOGLOBIN 28.2 pg (25-34); MEAN CORPUSCULAR HGB CONC 32.8 g/dl (32-36); MEAN PLATELET VOLUME 9.2 fL (7.4-10.4); MONO % 9.2 %; NEUT % 73.2 %; PLATELET COUNT 403 K/uL (130-400); RED BLOOD COUNT 3.44 M/uL (4.7-6.1); WHITE BLOOD COUNT 7.51 K/uL (4.8-10.8)
[2016-07-17 05:23] LABS: INR 3.5 (0.9-1.1); PROTHROMBIN TIME (PATIENT) 39.5 SECONDS (9.0-12.0)
[2016-07-17 05:40] LABS: BUN/CREATININE RATIO 7.5 (10-20); POTASSIUM 3.7 mmol/L (3.5-5.1)
[2016-07-17] MEDS: ASPIRIN 81 MG ECTAB PO SCH (07:39)
--- NOTE | 2016-07-17 07:39 | DIAGNOSTIC IMAGING REPORT ---
ABDOMEN AND PELVIS CT WITH IV CONTRAST CT DOSE: 661.54 mGy.cm HISTORY: Pelvic pain. back pain TECHNIQUE: Multiaxial CT images of the abdomen and pelvis were performed following the use of intravenous contrast. COMPARISON STUDY: Abdomen and pelvis CT 09/25/2013. FINDINGS: Moderate to severe diffuse body wall edema. Heterogeneous enlargement of the bilateral iliopsoas muscles, right greater the left. The iliopsoas muscles measure 6 cm cm in thickness on the right and 3.6 cm in thickness on the left. There is mild mass effect along the right side of the bladder. These favor iliopsoas hematomas. Small to moderate bilateral pleural effusions with associated partial compressive atelectasis of the bilateral lower lobes. Moderate right and mild left hip osteoarthritis. No hepatic or splenic masses. The adrenal glands, pancreas, and kidneys enhance normally. There is nonocclusive thrombus seen at the portosplenic confluence and extending into the proximal superior mesenteric vein. The inferior mesenteric vein is also thrombosed. There is retroperitoneal fluid/edema. There is presacral edema. Colonic diverticulosis. No evidence for bowel obstruction. Questionable mild thickening of the distal descending colon with surrounding pericolonic fat stranding. Small amount of soft tissue nodularity/lymphadenopathy within the mesentery adjacent to this region of colonic thickening. Soft tissue nodularity measures up to 1.6 cm in diameter. No evidence for bowel obstruction. IMPRESSION: 1. Heterogeneous enlargement of the bilateral iliopsoas muscles which most likely represents intramuscular hematomas. However, abscesses could also have a similar appearance. Recommend follow up to resolution to exclude the less likely possibility of an underlying mass. 2. Diffuse anasarca with small bilateral pleural effusions. 3. 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 There is questionable mild thickening at the distal descending colon with surrounding pericolonic fat stranding. This is adjacent to the area of the thrombosed inferior mesenteric vein and raises the possibility of a developing ischemic colitis. There is also soft tissue nodularity at the mesenteric border of the distal descending colon. Follow-up colonoscopy is recommended to exclude the possibility of underlying colonic lesion and to ensure resolution of the soft tissue nodularity. 4. Colonic diverticulosis. Electronically signed by: Randall Richards M.D. 07/17/2016 7:37 AM
[2016-07-17] MEDS: OXYCODONE/ACETAMINOPHEN 5-325 TAB PO PRN ×3 (11:04→23:53)
[2016-07-17] MEDS: AMOXICILLIN/CLAVULANATE TAB 875 MG TAB PO SCH (16:34)
--- NOTE | 2016-07-17 17:15 | Progress Note ---
Internal Med Progress Note Date of Service: Jul 17, 2016. Provider Documentation: SUBJECTIVE: The patient was seen and examined No more fever this morning but has sweating Complains of pain in right Hip with every movement More pain last night CT showed bilateral Psoas hematoma A little better today OBJECTIVE: Vital Signs-as noted below Exam: General-no distress at rest Sweating Eyes-normal ENT-normal Neck-supple Lungs-decreased breath sound at the right base Heart-Regular,no murmur appreciated Abdomen-Benign,no masses,bowel sound present Extremities-No edema Right lower extremity movement is painful in all direction No acute arthritis Neuro-AAOx3 Lab data as noted below. ASSESSMENT & PLAN: Bilateral Psoas Hematoma Right more than the Left Heparin discontinued and Coumadin is on hold Repeat CT in 2 days to evaluate the bleeding further Ongoing Fever Continue Antibiotics Repeat CXR and Blood cultures-both negative No More fever Admits to sweat easily Remains hemodynamically stable Doubt any Psoas Abscess Right Hip/Lower extremity Pain Likely arthritis as in X-ray CT showed : 1. Heterogeneous enlargement of the bilateral iliopsoas muscles which most likely represents intramuscular hematomas. However, abscesses could also have a similar appearance. Recommend follow up to resolution to exclude the less likely possibility of an underlying mass. 2. Diffuse anasarca with small bilateral pleural effusions. 3. 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 There is questionable mild thickening at the distal descending colon with surrounding pericolonic fat stranding. This is adjacent to the area of the thrombosed inferior mesenteric vein and raises the possibility of a developing ischemic colitis. There is also soft tissue nodularity at the mesenteric border of the distal descending colon. Follow-up colonoscopy is recommended to exclude the possibility of underlying colonic lesion and to ensure resolution of the soft tissue nodularity. 4. Colonic diverticulosis. Hypokalemia Supplement again and recheck ACUTE PE AND DVT: -RUL peripheral PE and left peroneal DVT as seen on CTA and LE doppler -Has been on IV heparin and Coumadin started INR is 2.2 on 07/14/17 ,overlap Day #3 -Hypercoagulable work up was not sent initially:will send a few and remaining ones need to be done off Anticoagulation -no recent surgery/trauma/prolonged periods of immobility -patient is being followed for prostatic hypertrophy but denies any new symptoms ; has refused cancer screening colonoscopy on multiple occasions -clinically much better today -Heparin stopped yesterday and Coumadin is on hold for now POSSIBLE SEPSIS: UNCLEAR SOURCE -presented with mildly productive cough, post-tussive vomiting and shaking chills -meets SIRS criteria with fever, tachycardia, hypotension and leukocytosis >13K -lactic acid 2.28 POC and 1.0 on repeat -blood cultures 1/2 growing group C beta strep; repeat blood cultures -on broad spectrum abx ( Zosyn and Levaquin) -patient has also required HIV testing which is pending, he is aware the initial is positive but the confirmatory is pending -Initial CXR was negative for any consolidation -Repeat CXR to r/o any pneumonia /effusion -will continue with Levaquin only Positive HIV -preliminary Await confirmatory test Patient aware ELEVATED TROPONIN: -troponin was 2.97; but has been trending down -most likely elevated due to PE, and possibly from acute sepsis vs. demand ischemia from tachycardia -EKG: sinus tach with no evidence of ischemia on admission -no wall motion abnormalities noted on TTE -is already on anticoagulation for PE HEMATURIA: -pt reports passing kidney stone a few days prior to admission -UA 2+ blood; urine cultures with no growth -Renal US: bilateral nephrolithiasis, prostatic hypertrophy and nonspecific bladder wall thickening unchanged from prior US -denies any additional urinary symptoms DVT PROPHYLAXIS IV Heparin and Oral Coumadin INR therapeutic since 07/14/16 DISPOSITION Awaited Discussed with the Family members Vital Signs: Date Time Temp Pulse Resp B/P Pulse Ox O2 Delivery O2 Flow Rate FiO2 07/17/16 16:00 Room Air 07/17/16 15:22 37.5 97 20 104/69 92 Room Air 07/17/16 12:00 Room Air 07/17/16 11:37 37.4 112 18 104/68 90 Room Air 07/17/16 08:08 37.5 102 18 109/68 92 07/17/16 08:00 Room Air 07/17/16 04:21 37.0 104 18 115/79 92 Room Air 07/17/16 04:00 92 Room Air 07/17/16 00:01 92 Room Air 07/16/16 23:48 37.0 108 18 131/82 92 Room Air 07/16/16 20:00 93 Room Air 07/16/16 19:14 37.3 101 20 118/76 93 Room Air Lab Results: Results Past 24 Hours Test 07/16/16 19:33 07/16/16 20:55 07/16/16 22:40 07/17/16 04:41 Range/Units Activated Partial Thromboplast Time 150.1 62.0 21.0-31.0 SECONDS Partial Thromboplastin Ratio 5.8 2.4 Prothrombin Time 44.8 39.5 9.0-12.0 SECONDS Prothromb Time International Ratio 4.0 3.5 0.9-1.1 White Blood Count 7.30 7.51 4.8-10.8 K/uL Red Blood Count 3.41 3.44 4.7-6.1 M/uL Hemoglobin 9.6 9.7 14.0-18.0 g/dL Hematocrit 28.6 29.6 42-52 % Mean Corpuscular Volume 83.9 86.0 80-100 fL Mean Corpuscular Hemoglobin 28.2 28.2 25-34 pg Mean Corpuscular Hemoglobin Concent 33.6 32.8 32-36 g/dl Platelet Count 354 403 130-400 K/uL Mean Platelet Volume 9.1 9.2 7.4-10.4 fL Neutrophils (%) (Auto) 76.3 73.2 % Lymphocytes (%) (Auto) 11.2 13.0 % Monocytes (%) (Auto) 7.9 9.2 % Eosinophils (%) (Auto) 0.8 0.7 % Basophils (%) (Auto) 0.1 0.3 % Neutrophils # (Auto) 5.56 5.50 1.4-6.5 K/uL Lymphocytes # (Auto) 0.82 0.98 1.2-3.4 K/uL Monocytes # (Auto) 0.58 0.69 0.11-0.59 K/uL Eosinophils # (Auto) 0.06 0.05 0-0.5 K/uL Basophils # (Auto) 0.01 0.02 0-0.2 K/uL RDW Standard Deviation 47.8 49.4 36.4-46.3 fL RDW Coefficient of Variation 15.5 15.6 11.5-14.5 % Immature Granulocyte % (Auto) 3.7 3.6 % Immature Granulocyte # (Auto) 0.27 0.27 0.00-0.02 K/uL Sodium Level 138 136-145 mmol/L Potassium Level 3.7 3.5-5.1 mmol/L Chloride Level 103 98-107 mmol/L Carbon Dioxide Level 28 21-32 mmol/L Anion Gap 7.0 3-11 mmol/L Blood Urea Nitrogen 8 7-18 mg/dl Creatinine 1.00 0.60-1.40 mg/dl Est Creatinine Clear Calc Drug Dose 78.1 ml/min Estimated GFR () 89.9 Estimated GFR (Non- 77.5 BUN/Creatinine Ratio 7.5 10-20 Random Glucose 105 70-99 mg/dl Calcium Level 8.0 8.5-10.1 mg/dl
[2016-07-17] MEDS: ZOLPIDEM TARTRATE 5 MG TAB PO PRN (23:52)
[2016-07-18] VITALS (10 sets, daily range): BP systolic 112–124; BP diastolic 75–80; PULSE 99–110; TEMP 36.6–38.5; O2SAT 90–94
[2016-07-18 07:08] LABS: HEMATOCRIT 26.4 % (42-52); MEAN CELL VOLUME 86.6 fL (80-100); MEAN CORPUSCULAR HEMOGLOBIN 28.2 pg (25-34); MEAN CORPUSCULAR HGB CONC 32.6 g/dl (32-36); MEAN PLATELET VOLUME 9.1 fL (7.4-10.4); PLATELET COUNT 413 K/uL (130-400); RED BLOOD COUNT 3.05 M/uL (4.7-6.1); WHITE BLOOD COUNT 6.76 K/uL (4.8-10.8)
[2016-07-18 07:18] LABS: INR 2.8 (0.9-1.1); PROTHROMBIN TIME (PATIENT) 31.2 SECONDS (9.0-12.0)
[2016-07-18 07:41] LABS: BUN/CREATININE RATIO 10.5 (10-20); CALCIUM 7.9 mg/dl (8.5-10.1); POTASSIUM 3.8 mmol/L (3.5-5.1)
[2016-07-18] MEDS: AMOXICILLIN/CLAVULANATE TAB 875 MG TAB PO SCH ×2 (08:04→16:29)
[2016-07-18] MEDS: OXYCODONE/ACETAMINOPHEN 5-325 TAB PO PRN ×3 (08:04→23:48)
[2016-07-18] MEDS: ONDANSETRON INJ 2 MG/ML 2 ML VIAL IV PRN ×2 (08:05→21:33)
[2016-07-18] MEDS ORDERED: NURSING VERBAL MED ORDER ONE ×2 (13:30→15:15)
[2016-07-18] MEDS ORDERED: ACETAMINOPHEN 325 MG TAB ONE (15:27)
--- NOTE | 2016-07-18 16:08 | Progress Note ---
Internal Med Progress Note Date of Service: Jul 18, 2016. Provider Documentation: SUBJECTIVE: The patient was seen and examined Has had Fever of 38.5 this morning On going sweating Leg pain seems stable OBJECTIVE: Vital Signs-as noted below Exam: General-no distress at rest Sweating Eyes-normal ENT-normal Neck-supple Lungs-decreased breath sound at the right base Heart-Regular,no murmur appreciated Abdomen-Benign,no masses,bowel sound present Extremities-No edema Right lower extremity movement is less painful today No acute arthritis Neuro-AAOx3 Lab data as noted below. ASSESSMENT & PLAN: Bilateral Psoas Hematoma Right more than the Left Heparin discontinued and Coumadin is on hold Repeat CT in 2 days to evaluate the bleeding further Pain is a little batter Hb is slightly decreased Will get CT scan tomorrow Ongoing Fever Continue Antibiotics Repeat CXR and Blood cultures-both negative No More fever Admits to sweat easily Remains hemodynamically stable Doubt any Psoas Abscess Has had Fever of 38.5 Tylenol for now If noted again-will get Blood cultures Right Hip/Lower extremity Pain Likely arthritis as in X-ray CT showed : 1. Heterogeneous enlargement of the bilateral iliopsoas muscles which most likely represents intramuscular hematomas. However, abscesses could also have a similar appearance. Recommend follow up to resolution to exclude the less likely possibility of an underlying mass. 2. Diffuse anasarca with small bilateral pleural effusions. 3. 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 There is questionable mild thickening at the distal descending colon with surrounding pericolonic fat stranding. This is adjacent to the area of the thrombosed inferior mesenteric vein and raises the possibility of a developing ischemic colitis. There is also soft tissue nodularity at the mesenteric border of the distal descending colon. Follow-up colonoscopy is recommended to exclude the possibility of underlying colonic lesion and to ensure resolution of the soft tissue nodularity. 4. Colonic diverticulosis. Hypokalemia Supplement again and recheck Normalized ACUTE PE AND DVT: -RUL peripheral PE and left peroneal DVT as seen on CTA and LE doppler -Has been on IV heparin and Coumadin started INR is 2.2 on 07/14/17 ,overlap Day #3 -Hypercoagulable work up was not sent initially:will send a few and remaining ones need to be done off Anticoagulation -no recent surgery/trauma/prolonged periods of immobility -patient is being followed for prostatic hypertrophy but denies any new symptoms ; has refused cancer screening colonoscopy on multiple occasions -clinically much better today -Heparin stopped yesterday and Coumadin is on hold for now -INR 2.8 today POSSIBLE SEPSIS: UNCLEAR SOURCE -presented with mildly productive cough, post-tussive vomiting and shaking chills -meets SIRS criteria with fever, tachycardia, hypotension and leukocytosis >13K -lactic acid 2.28 POC and 1.0 on repeat -blood cultures 1/2 growing group C beta strep; repeat blood cultures -on broad spectrum abx ( Zosyn and Levaquin) -patient has also required HIV testing which is pending, he is aware the initial is positive but the confirmatory is pending -Initial CXR was negative for any consolidation -Repeat CXR to r/o any pneumonia /effusion -will continue with Levaquin only Positive HIV -preliminary Await confirmatory test Patient aware ELEVATED TROPONIN: -troponin was 2.97; but has been trending down -most likely elevated due to PE, and possibly from acute sepsis vs. demand ischemia from tachycardia -EKG: sinus tach with no evidence of ischemia on admission -no wall motion abnormalities noted on TTE -is already on anticoagulation for PE HEMATURIA: -pt reports passing kidney stone a few days prior to admission -UA 2+ blood; urine cultures with no growth -Renal US: bilateral nephrolithiasis, prostatic hypertrophy and nonspecific bladder wall thickening unchanged from prior US -denies any additional urinary symptoms DVT PROPHYLAXIS IV Heparin and Oral Coumadin INR therapeutic since 07/14/16 DISPOSITION Awaited Discussed with the Family members Vital Signs: Date Time Temp Pulse Resp B/P Pulse Ox O2 Delivery O2 Flow Rate FiO2 07/18/16 15:00 38.5 108 18 124/80 92 Room Air 07/18/16 12:00 Room Air 07/18/16 11:36 37.4 102 19 122/75 90 Room Air 07/18/16 08:00 Room Air 07/18/16 07:26 36.6 104 18 117/75 91 Room Air 07/18/16 04:04 100 07/18/16 04:00 Room Air 07/18/16 03:56 37.4 07/18/16 03:31 103 18 112/76 90 Room Air 07/18/16 00:00 Room Air 07/18/16 00:00 110 07/17/16 23:49 37.5 106 19 129/84 93 Room Air 07/17/16 20:05 97 07/17/16 20:00 Room Air 07/17/16 19:35 37.5 101 20 109/72 90 Room Air Lab Results: Results Past 24 Hours Test 07/18/16 06:10 Range/Units White Blood Count 6.76 4.8-10.8 K/uL Red Blood Count 3.05 4.7-6.1 M/uL Hemoglobin 8.6 14.0-18.0 g/dL Hematocrit 26.4 42-52 % Mean Corpuscular Volume 86.6 80-100 fL Mean Corpuscular Hemoglobin 28.2 25-34 pg Mean Corpuscular Hemoglobin Concent 32.6 32-36 g/dl RDW Standard Deviation 50.6 36.4-46.3 fL RDW Coefficient of Variation 15.9 11.5-14.5 % Platelet Count 413 130-400 K/uL Mean Platelet Volume 9.1 7.4-10.4 fL Prothrombin Time 31.2 9.0-12.0 SECONDS Prothromb Time International Ratio 2.8 0.9-1.1 Sodium Level 140 136-145 mmol/L Potassium Level 3.8 3.5-5.1 mmol/L Chloride Level 102 98-107 mmol/L Carbon Dioxide Level 30 21-32 mmol/L Anion Gap 8.0 3-11 mmol/L Blood Urea Nitrogen 11 7-18 mg/dl Creatinine 1.00 0.60-1.40 mg/dl Est Creatinine Clear Calc Drug Dose 77.3 ml/min Estimated GFR () 89.9 Estimated GFR (Non- 77.5 BUN/Creatinine Ratio 10.5 10-20 Random Glucose 75 70-99 mg/dl Calcium Level 7.9 8.5-10.1 mg/dl
[2016-07-18] MEDS: MELATONIN 10 MG PO SCH (20:30)
[2016-07-19] VITALS (8 sets, daily range): BP systolic 110–116; BP diastolic 69–76; PULSE 92–112; TEMP 36.6–37.7; O2SAT 91–93
[2016-07-19 06:27] LABS: HEMATOCRIT 25.5 % (42-52); MEAN CELL VOLUME 85.6 fL (80-100); MEAN CORPUSCULAR HEMOGLOBIN 28.2 pg (25-34); MEAN CORPUSCULAR HGB CONC 32.9 g/dl (32-36); MEAN PLATELET VOLUME 8.9 fL (7.4-10.4); PLATELET COUNT 386 K/uL (130-400); RED BLOOD COUNT 2.98 M/uL (4.7-6.1); WHITE BLOOD COUNT 6.85 K/uL (4.8-10.8)
[2016-07-19 06:59] LABS: BUN/CREATININE RATIO 17.1 (10-20); CALCIUM 7.9 mg/dl (8.5-10.1); CREATININE 0.9 mg/dl (0.60-1.40); POTASSIUM 3.9 mmol/L (3.5-5.1)
[2016-07-19] MEDS: AMOXICILLIN/CLAVULANATE TAB 875 MG TAB PO SCH ×2 (08:09→17:21)
[2016-07-19] MEDS: OXYCODONE/ACETAMINOPHEN 5-325 TAB PO PRN (08:09)
--- NOTE | 2016-07-19 10:03 | DIAGNOSTIC IMAGING REPORT ---
CT SCAN OF THE ABDOMEN AND PELVIS WITHOUT CONTRAST CLINICAL HISTORY: Bilateral Psoas Hematoma FOLLOW-UP EXAMINATION. COMPARISON STUDY: 07/08/2016 TECHNIQUE: CT scan of the abdomen and pelvis was performed from the lung bases to the proximal femurs. Images are reviewed in the axial, sagittal, and coronal planes. IV contrast was not administered for this examination. CT DOSE: 697.87 mGy.cm FINDINGS: Lower chest: There are moderate bilateral pleural effusions right greater than left. There is associated compressive atelectatic change. There is a small pericardial effusion which appears slightly larger than on the prior study. There is a small hiatal hernia. Liver: The unenhanced liver is normal in size, contour, and attenuation. There is no intrahepatic biliary ductal dilatation. Gallbladder: Unremarkable. Spleen: The spleen is mildly enlarged measuring 12 cm Pancreas: No pancreatic masses are visualized on this noncontrast study. There is mild inferior peripancreatic/mesenteric edema. Adrenal glands: Unremarkable. Kidneys: The unenhanced kidneys are normal in size without hydronephrosis. There is no contour deforming renal mass lesion. No renal calculi are identified. Bowel: There is mild edema adjacent to the transverse duodenum. There are no transition zones indicate bowel obstruction. There is colonic diverticulosis. The presence of mesenteric edema makes exclusion of diverticulitis difficult. Peritoneum: No free air is visualized. There is presacral edema. There is a fat-containing right inguinal hernia. There is tiny fat-containing umbilical hernia. Vasculature: The abdominal aorta is normal in course and caliber. Adenopathy: There are borderline enlarged aortocaval lymph nodes. Pelvic viscera: The bladder demonstrates increased density, likely secondary to previous administered contrast. There is mild prostamegaly. Skeletal structures: There is persistent enlargement of the right iliopsoas which measures 8 cm in AP diameter. The findings are suggestive of a hematoma. There is also mild enlargement of the left iliopsoas suspicious for a left iliopsoas hematoma. IMPRESSION: 1. Moderate bilateral pleural effusions right greater than left with associated bibasal atelectasis 2. Small but increasing pericardial effusion 3. Bilateral iliopsoas masses, likely representing hematomas. These remain similar in size the prior study 4. Extensive sigmoid diverticulosis. 5. Borderline enlarged aortocaval lymph nodes 6. Persistent nonspecific mesenteric edema. This may be secondary to the mesenteric vein thrombosis that was described on the prior contrast-enhanced study performed 07/16/2016 7. Diffuse body wall edema Electronically signed by: Carloz Abdullahi M.D. 07/19/2016 10:01 AM
--- NOTE | 2016-07-19 15:09 | Progress Note ---
Internal Med Progress Note Date of Service: Jul 19, 2016. Provider Documentation: SUBJECTIVE: The patient was seen and examined Has had Fever of 38.5 this morning On going sweating Leg pain seems stable Pain is a little better No increase in swelling OBJECTIVE: Vital Signs-as noted below Exam: General-no distress at rest Sweating Eyes-normal ENT-normal Neck-supple Lungs-decreased breath sound at the right base Heart-Regular,no murmur appreciated Abdomen-Benign,no masses,bowel sound present Extremities-No edema Right lower extremity movement is much less painful today No acute arthritis Neuro-AAOx3 Lab data as noted below. ASSESSMENT & PLAN: Bilateral Psoas Hematoma Right more than the Left Heparin discontinued and Coumadin is on hold Repeat CT in 2 days to evaluate the bleeding further Pain is a little batter Hb is slightly decreased Will get CT scan 0n 07/19::no increase in Hematoma Ongoing Fever -resolved Continue Antibiotics Repeat CXR and Blood cultures-both negative No More fever Admits to sweat easily Remains hemodynamically stable Doubt any Psoas Abscess Has had Fever of 38.5 Tylenol for now If noted again-will get Blood cultures Right Hip/Lower extremity Pain Likely arthritis as in X-ray CT showed : 1. Heterogeneous enlargement of the bilateral iliopsoas muscles which most likely represents intramuscular hematomas. However, abscesses could also have a similar appearance. Recommend follow up to resolution to exclude the less likely possibility of an underlying mass. 2. Diffuse anasarca with small bilateral pleural effusions. 3. 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 There is questionable mild thickening at the distal descending colon with surrounding pericolonic fat stranding. This is adjacent to the area of the thrombosed inferior mesenteric vein and raises the possibility of a developing ischemic colitis. There is also soft tissue nodularity at the mesenteric border of the distal descending colon. Follow-up colonoscopy is recommended to exclude the possibility of underlying colonic lesion and to ensure resolution of the soft tissue nodularity. 4. Colonic diverticulosis. Bilateral Psoas Hematoma as above Hypokalemia Supplement again and recheck Normalized ACUTE PE AND DVT: -RUL peripheral PE and left peroneal DVT as seen on CTA and LE doppler -Has been on IV heparin and Coumadin started INR is 2.2 on 07/14/17 ,overlap Day #3 -Hypercoagulable work up was not sent initially:will send a few and remaining ones need to be done off Anticoagulation -no recent surgery/trauma/prolonged periods of immobility -patient is being followed for prostatic hypertrophy but denies any new symptoms ; has refused cancer screening colonoscopy on multiple occasions -clinically much better today -Heparin stopped yesterday and Coumadin is on hold for now -recheck INR tomorrow POSSIBLE SEPSIS: UNCLEAR SOURCE -presented with mildly productive cough, post-tussive vomiting and shaking chills -meets SIRS criteria with fever, tachycardia, hypotension and leukocytosis >13K -lactic acid 2.28 POC and 1.0 on repeat -blood cultures 1/2 growing group C beta strep; repeat blood cultures -on broad spectrum abx ( Zosyn and Levaquin) -patient has also required HIV testing which is pending, he is aware the initial is positive but the confirmatory is pending -Initial CXR was negative for any consolidation -Repeat CXR to r/o any pneumonia /effusion -will continue with Levaquin only Positive HIV -preliminary Await confirmatory test Patient aware ELEVATED TROPONIN: -troponin was 2.97; but has been trending down -most likely elevated due to PE, and possibly from acute sepsis vs. demand ischemia from tachycardia -EKG: sinus tach with no evidence of ischemia on admission -no wall motion abnormalities noted on TTE -is already on anticoagulation for PE HEMATURIA: -pt reports passing kidney stone a few days prior to admission -UA 2+ blood; urine cultures with no growth -Renal US: bilateral nephrolithiasis, prostatic hypertrophy and nonspecific bladder wall thickening unchanged from prior US -denies any additional urinary symptoms DVT PROPHYLAXIS IV Heparin and Oral Coumadin INR therapeutic since 07/14/16 DISPOSITION Awaited Discussed with the Family members Vital Signs: Date Time Temp Pulse Resp B/P Pulse Ox O2 Delivery O2 Flow Rate FiO2 07/19/16 12:00 Room Air 07/19/16 11:11 36.8 96 18 115/75 91 Room Air 07/19/16 08:00 Room Air 07/19/16 07:39 37.4 99 18 110/72 91 Room Air 07/19/16 04:01 94 07/19/16 04:00 Room Air 07/19/16 00:00 103 07/19/16 00:00 Room Air 07/18/16 23:47 37.0 102 17 123/77 92 Room Air 07/18/16 20:05 99 07/18/16 20:05 Room Air 07/18/16 19:42 37.0 102 18 116/76 94 Room Air 07/18/16 16:00 Room Air Lab Results: Results Past 24 Hours Test 07/19/16 05:11 Range/Units White Blood Count 6.85 4.8-10.8 K/uL Red Blood Count 2.98 4.7-6.1 M/uL Hemoglobin 8.4 14.0-18.0 g/dL Hematocrit 25.5 42-52 % Mean Corpuscular Volume 85.6 80-100 fL Mean Corpuscular Hemoglobin 28.2 25-34 pg Mean Corpuscular Hemoglobin Concent 32.9 32-36 g/dl RDW Standard Deviation 49.2 36.4-46.3 fL RDW Coefficient of Variation 15.8 11.5-14.5 % Platelet Count 386 130-400 K/uL Mean Platelet Volume 8.9 7.4-10.4 fL Sodium Level 137 136-145 mmol/L Potassium Level 3.9 3.5-5.1 mmol/L Chloride Level 102 98-107 mmol/L Carbon Dioxide Level 29 21-32 mmol/L Anion Gap 6.0 3-11 mmol/L Blood Urea Nitrogen 15 7-18 mg/dl Creatinine 0.90 0.60-1.40 mg/dl Est Creatinine Clear Calc Drug Dose 85.9 ml/min Estimated GFR () 102.1 Estimated GFR (Non- 88.1 BUN/Creatinine Ratio 17.1 10-20 Random Glucose 84 70-99 mg/dl Calcium Level 7.9 8.5-10.1 mg/dl
[2016-07-19] MEDS: ONDANSETRON INJ 2 MG/ML 2 ML VIAL IV PRN (17:21)
[2016-07-19] MEDS: MELATONIN 10 MG PO SCH (21:00)
[2016-07-20] VITALS (7 sets, daily range): BP systolic 111–125; BP diastolic 72–76; PULSE 85–100; TEMP 36.6–37.3; O2SAT 91–96
[2016-07-20] MEDS: OXYCODONE/ACETAMINOPHEN 5-325 TAB PO PRN (00:20)
[2016-07-20 05:35] LABS: HEMATOCRIT 24.4 % (42-52); MEAN CELL VOLUME 85.6 fL (80-100); MEAN CORPUSCULAR HEMOGLOBIN 28.1 pg (25-34); MEAN CORPUSCULAR HGB CONC 32.8 g/dl (32-36); MEAN PLATELET VOLUME 8.4 fL (7.4-10.4); PLATELET COUNT 373 K/uL (130-400); RED BLOOD COUNT 2.85 M/uL (4.7-6.1); WHITE BLOOD COUNT 5.74 K/uL (4.8-10.8)
[2016-07-20 05:42] LABS: INR 1.2 (0.9-1.1); PROTHROMBIN TIME (PATIENT) 13.3 SECONDS (9.0-12.0)
[2016-07-20 06:05] LABS: BUN/CREATININE RATIO 17.5 (10-20); CALCIUM 7.9 mg/dl (8.5-10.1); CREATININE 0.91 mg/dl (0.60-1.40); POTASSIUM 4.2 mmol/L (3.5-5.1)
[2016-07-20] MEDS: AMOXICILLIN/CLAVULANATE TAB 875 MG TAB PO SCH ×2 (09:00→16:31)
[2016-07-20] MEDS ORDERED: FUROSEMIDE INJ 40 MG in SYRINGE 0 ML IV ONE (09:30)
--- NOTE | 2016-07-20 15:52 | Progress Note ---
Internal Med Progress Note Date of Service: Jul 20, 2016. Provider Documentation: SUBJECTIVE: The patient was seen and examined Generally weak Leg pain is better Has bilateral leg edema OBJECTIVE: Vital Signs-as noted below Exam: General-no distress at rest Sweating Eyes-normal ENT-normal Neck-supple Lungs-decreased breath sound at the right base Heart-Regular,no murmur appreciated Abdomen-Benign,no masses,bowel sound present Extremities-1+ Edema bilaterally Right lower extremity movement is much less painful today No acute arthritis Neuro-AAOx3 Lab data as noted below. ASSESSMENT & PLAN: Bilateral Psoas Hematoma Right more than the Left Heparin discontinued and Coumadin is on hold Repeat CT in 2 days to evaluate the bleeding further Pain is a lot batter CT -size of the Hematoma has not increased Hb is slightly decreased to 8.0 on 07/20/16 Ongoing Fever -resolved Continue Antibiotics Repeat CXR and Blood cultures-both negative No More fever Admits to sweat easily Remains hemodynamically stable Doubt any Psoas Abscess Has had Fever of 38.5 Tylenol for now If noted again-will get Blood cultures Positive HIV test result -preliminary Await confirmatory test Patient aware and lymphadenopathy will ask for ID consult Right Hip/Lower extremity Pain Likely arthritis as in X-ray CT showed : 1. Heterogeneous enlargement of the bilateral iliopsoas muscles which most likely represents intramuscular hematomas. However, abscesses could also have a similar appearance. Recommend follow up to resolution to exclude the less likely possibility of an underlying mass. 2. Diffuse anasarca with small bilateral pleural effusions. 3. 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 There is questionable mild thickening at the distal descending colon with surrounding pericolonic fat stranding. This is adjacent to the area of the thrombosed inferior mesenteric vein and raises the possibility of a developing ischemic colitis. There is also soft tissue nodularity at the mesenteric border of the distal descending colon. Follow-up colonoscopy is recommended to exclude the possibility of underlying colonic lesion and to ensure resolution of the soft tissue nodularity. 4. Colonic diverticulosis. Bilateral Psoas Hematoma as above Hypokalemia Supplement again and recheck Normalized ACUTE PE AND DVT: -RUL peripheral PE and left peroneal DVT as seen on CTA and LE doppler -Has been on IV heparin and Coumadin started INR is 2.2 on 07/14/17 ,overlap Day #3 -no recent surgery/trauma/prolonged periods of immobility -patient is being followed for prostatic hypertrophy but denies any new symptoms ; has refused cancer screening colonoscopy on multiple occasions -Was on Heparin and Coumadin.Heparin stopped following Bilateral Psoas Hematoma -recheck INR tomorrow -subtherapeutic -Restart Coumadin -Hyper coagulation studies-negative. -Negative Prothrombin Gene Mutation and Negative Factor V Leiden POSSIBLE SEPSIS: UNCLEAR SOURCE -presented with mildly productive cough, post-tussive vomiting and shaking chills -meets SIRS criteria with fever, tachycardia, hypotension and leukocytosis >13K -lactic acid 2.28 POC and 1.0 on repeat -blood cultures 1/2 growing group C beta strep; repeat blood cultures -on broad spectrum abx ( Zosyn and Levaquin) -patient has also required HIV testing which is pending, he is aware the initial is positive but the confirmatory is pending -Initial CXR was negative for any consolidation -Repeat CXR to r/o any pneumonia /effusion -will continue with Levaquin only ELEVATED TROPONIN: -troponin was 2.97; but has been trending down -most likely elevated due to PE, and possibly from acute sepsis vs. demand ischemia from tachycardia -EKG: sinus tach with no evidence of ischemia on admission -no wall motion abnormalities noted on TTE -is already on anticoagulation for PE HEMATURIA: -pt reports passing kidney stone a few days prior to admission -UA 2+ blood; urine cultures with no growth -Renal US: bilateral nephrolithiasis, prostatic hypertrophy and nonspecific bladder wall thickening unchanged from prior US -denies any additional urinary symptoms DVT PROPHYLAXIS IV Heparin and Oral Coumadin INR therapeutic since 07/14/16 DISPOSITION Awaited Discussed with the Family members Vital Signs: Date Time Temp Pulse Resp B/P Pulse Ox O2 Delivery O2 Flow Rate FiO2 07/20/16 12:00 Room Air 07/20/16 11:38 36.6 98 19 125/76 96 Room Air 07/20/16 08:00 Room Air 07/20/16 07:39 36.7 86 18 115/72 93 Room Air 07/20/16 04:00 93 Room Air 07/20/16 04:00 36.7 85 16 112/75 93 Room Air 07/20/16 00:00 91 Room Air 07/19/16 23:30 37.4 92 18 115/74 91 Room Air 07/19/16 20:00 92 Room Air 07/19/16 19:58 37.7 112 20 114/69 92 Room Air 07/19/16 16:00 Room Air Lab Results: Results Past 24 Hours Test 07/20/16 05:13 Range/Units White Blood Count 5.74 4.8-10.8 K/uL Red Blood Count 2.85 4.7-6.1 M/uL Hemoglobin 8.0 14.0-18.0 g/dL Hematocrit 24.4 42-52 % Mean Corpuscular Volume 85.6 80-100 fL Mean Corpuscular Hemoglobin 28.1 25-34 pg Mean Corpuscular Hemoglobin Concent 32.8 32-36 g/dl RDW Standard Deviation 49.4 36.4-46.3 fL RDW Coefficient of Variation 15.8 11.5-14.5 % Platelet Count 373 130-400 K/uL Mean Platelet Volume 8.4 7.4-10.4 fL Prothrombin Time 13.3 9.0-12.0 SECONDS Prothromb Time International Ratio 1.2 0.9-1.1 Sodium Level 139 136-145 mmol/L Potassium Level 4.2 3.5-5.1 mmol/L Chloride Level 103 98-107 mmol/L Carbon Dioxide Level 32 21-32 mmol/L Anion Gap 4.0 3-11 mmol/L Blood Urea Nitrogen 16 7-18 mg/dl Creatinine 0.91 0.60-1.40 mg/dl Est Creatinine Clear Calc Drug Dose 84.9 ml/min Estimated GFR () 100.7 Estimated GFR (Non- 86.9 BUN/Creatinine Ratio 17.5 10-20 Random Glucose 89 70-99 mg/dl Calcium Level 7.9 8.5-10.1 mg/dl
[2016-07-20] MEDS: WARFARIN SOD 2 MG TAB PO SCH (16:32)
[2016-07-20] MEDS: MELATONIN 10 MG PO SCH (21:00)
[2016-07-21] VITALS (10 sets, daily range): BP systolic 116–123; BP diastolic 75–80; PULSE 18–105; TEMP 36.6–37; O2SAT 92–95
[2016-07-21] MEDS: OXYCODONE/ACETAMINOPHEN 5-325 TAB PO PRN (00:08)
[2016-07-21 07:16] LABS: HEMATOCRIT 26.2 % (42-52); MEAN CELL VOLUME 85.6 fL (80-100); MEAN CORPUSCULAR HEMOGLOBIN 28.1 pg (25-34); MEAN CORPUSCULAR HGB CONC 32.8 g/dl (32-36); MEAN PLATELET VOLUME 8.2 fL (7.4-10.4); PLATELET COUNT 384 K/uL (130-400); RED BLOOD COUNT 3.06 M/uL (4.7-6.1); WHITE BLOOD COUNT 5.15 K/uL (4.8-10.8)
[2016-07-21 07:26] LABS: INR 1.1 (0.9-1.1); PROTHROMBIN TIME (PATIENT) 12.3 SECONDS (9.0-12.0)
[2016-07-21 07:46] LABS: BUN/CREATININE RATIO 16.3 (10-20); CREATININE 0.88 mg/dl (0.60-1.40); MAGNESIUM 2.6 mg/dl (1.8-2.4); PHOSPHORUS 3.3 mg/dl (2.5-4.9); POTASSIUM 4.3 mmol/L (3.5-5.1)
[2016-07-21] MEDS: ONDANSETRON INJ 2 MG/ML 2 ML VIAL IV PRN ×2 (07:46→19:47)
[2016-07-21] MEDS: ACETAMINOPHEN 325 MG TAB PO PRN (07:46)
[2016-07-21] MEDS: AMOXICILLIN/CLAVULANATE TAB 875 MG TAB PO SCH ×2 (07:47→17:00)
[2016-07-21 07:50] LABS: FERRITIN 329.2 ng/ml (8.0-388.0)
--- NOTE | 2016-07-21 10:37 | Medical Consult ---
Consultation Date of Consultation: Jul 21, 2016. Attending Physician: Quentin Holbrook M.D. Reason for Consultation: HIV infection History of Present Illness 66-year-old male with history of BPH and recurrent nephrolithiasis, otherwise in reasonably good health, presented to the emergency room with 1 week history of fever, chills, nausea, vomiting, flank pain, passage of kidney stone, weakness, and some confusion. He also had some cough with yellowish sputum production. Patient was subsequently found to have right leg deep vein thrombosis with pulmonary embolus, as well as positive blood cultures on admission for group G Streptococcus. He was treated initially with IV Zosyn and levofloxacin, and after clinical improvement and negative blood cultures, patient was transition to oral Augmentin, and has remained afebrile. He was started on IV heparin for his pulmonary emboli, but developed worsening abdominal pain and was found to have what appears to be bilateral psoas muscle hematomas, although abscess could not be entirely ruled out. He has had follow- up CT scan which shows no evolution or worsening. At patient request, HIV testing was performed as patient is bisexual, and now has returned positive. Patient has no obvious indication when exactly he became infected. No obvious acute retroviral syndrome in the past. Past Medical/Surgical History Medical Problems: (1) BPH (benign prostatic hypertrophy) (2) Renal calculi (3) Sepsis Surgical Problems: (1) H/O eye surgery (2) H/O lithotripsy Family History Diabetes mellitus FH: cancer FH: heart disease Social History Smoking Status: Former Smoker Alcohol Use: occasionally Drug Use: none Marital Status: Housing Status: lives with family Occupation Status: employed Allergies Coded Allergies: Hydrocodone (Verified Adverse Reaction, Unknown, vomiting, 07/12/16) Current Inpatient Medications Current Inpatient Medications Medications (Trade) Dose Ordered Sig/Amrit Route Start Time Stop Time Status Last Admin Dose Admin Ondansetron HCl (Zofran Inj) 4 mg Q6H PRN IV 07/11/16 22:00 08/10/16 21:59 07/21/16 07:46 4 MG Nitroglycerin (Nitrostat Tab) 0.4 mg UD PRN SL 07/11/16 22:00 08/10/16 21:59 Zolpidem Tartrate (Ambien Tab) 5 mg HSZ PRN PO 07/12/16 03:45 08/11/16 03:44 07/17/16 23:52 5 MG Aspirin (Ecotrin Tab) 81 mg QAM PO 07/12/16 09:00 08/11/16 08:59 Future Hold 07/17/16 07:39 81 MG Tramadol HCl (Ultram Tab) 50 mg Q6H PRN PO 07/12/16 20:45 08/11/16 20:44 07/17/16 00:30 50 MG Morphine Sulfate 4 mg 4 mg Q6H PRN IV 07/12/16 23:30 07/26/16 23:29 07/16/16 21:08 4 MG Promethazine HCl/ Sodium Chloride (Phenergan Inj/ Nss 50ml) 50.5 ml @ 204 mls/hr Q6H PRN IV 07/13/16 12:30 08/12/16 12:29 07/14/16 16:23 204 MLS/HR Warfarin Sodium (Coumadin Tab) 2 mg DAILY@16 PO 07/14/16 16:00 08/13/16 15:59 Future hold 07/20/16 16:32 2 MG Oxycodone/ Acetaminophen (Percocet 5-325MG Tab) 1 tab Q6H PRN PO 07/16/16 20:45 07/30/16 20:44 07/21/16 00:08 1 TAB Amoxicillin/ Clavulanate Potassium (Augmentin Tab) 875 mg BIDM PO 07/17/16 16:45 07/21/16 23:59 07/21/16 07:47 875 MG Non-Formulary Medication (Non-Formulary Patient'S Own Med) 1 ea HS PO 07/18/16 21:00 08/17/16 20:59 07/20/16 21:00 1 EA Acetaminophen (Tylenol Tab) 650 mg Q6H PRN PO 07/18/16 15:30 08/17/16 15:29 07/21/16 07:46 650 MG Review of Systems Constitutional: + chills, + fever, + sweats, + weakness Eyes: No problem reported ENT: No problem reported Respiratory: + cough, + sputum Cardiovascular: No problem reported Abdomen: + nausea, + pain, + vomiting Musculoskeletal: + joint pain, + muscle pain, + swelling Genitourinary - Male: No problem reported Neurologic: + weakness Psychiatric: No problem reported Endocrine: + fatigue Hematologic / Lymphatic: No problem reported Integumentary: No problem reported Physical Exam Date Time Temp Pulse Resp B/P Pulse Ox O2 Delivery O2 Flow Rate FiO2 07/21/16 08:22 36.7 89 18 122/79 93 Room Air 07/21/16 08:00 93 Room Air 07/21/16 04:10 36.6 90 19 121/80 93 Room Air 07/21/16 04:00 93 Room Air 07/21/16 00:00 92 Room Air 07/21/16 00:00 37.0 95 20 123/78 92 Room Air 07/20/16 20:00 92 Room Air 07/20/16 19:43 37.3 100 20 116/73 92 Room Air 07/20/16 16:00 Room Air 07/20/16 15:47 37.1 98 18 111/74 93 Room Air 07/20/16 12:00 Room Air 07/20/16 11:38 36.6 98 19 125/76 96 Room Air General Appearance: WD/WN, no apparent distress Head: normocephalic, atraumatic Eyes: normal inspection, EOMI ENT: normal ENT inspection, hearing grossly normal, pharynx normal Neck: supple, no adenopathy, thyroid normal, trachea midline Respiratory/Chest: chest non-tender, lungs clear, normal breath sounds, no respiratory distress Cardiovascular: regular rate, rhythm, no gallop, no murmur Abdomen/GI: normal bowel sounds, non tender, soft, no organomegaly Back: normal inspection, no CVA tenderness Extremities/Musculoskelatal: normal capillary refill, + swelling (right leg) Neurologic/Psych: alert, normal mood/affect, oriented x 3 Skin: normal color, warm/dry, no rash Lymphatic: no adenopathy Laboratory Results RUN DATE: 07/20/16 [facility] LAB PAGE 1 RUN TIME: 7708 Specimen Inquiry PATIENT: MARICEL SAHU LOC: [facility] U # : [id number] AGE/SX: 66/M ROOM: E215 REG : 07/11/[address]: Quentin Holbrook M.D. : 1950 BED: 1 DIS : STATUS: ADM IN TLOC: SPEC #: [id number] DANIEL: 07/15/16 STATUS: COMP REQ #: [id number] RECD: 07/15/[address]: Yoko Thorne, D.OShannon SOURCE: BLOOD ENTR: 07/15/16 [facility] DR: Argenis Casas, REAGAN SPDESC: Magi Marie M.D. Vangala, Satish K., MD ORDERED: BLOOD CULTURE Procedure Result Verified Site BLD CULT Final 07/20/16 NO GROWTH Last 24 Hours Test 07/21/16 07:00 White Blood Count 5.15 K/uL Red Blood Count 3.06 M/uL Hemoglobin 8.6 g/dL Hematocrit 26.2 % Mean Corpuscular Volume 85.6 fL Mean Corpuscular Hemoglobin 28.1 pg Mean Corpuscular Hemoglobin Concent 32.8 g/dl RDW Standard Deviation 49.9 fL RDW Coefficient of Variation 15.9 % Platelet Count 384 K/uL Mean Platelet Volume 8.2 fL Prothrombin Time 12.3 SECONDS Prothromb Time International Ratio 1.1 Sodium Level 140 mmol/L Potassium Level 4.3 mmol/L Chloride Level 102 mmol/L Carbon Dioxide Level 30 mmol/L Anion Gap 8.0 mmol/L Blood Urea Nitrogen 14 mg/dl Creatinine 0.88 mg/dl Est Creatinine Clear Calc Drug Dose 85.3 ml/min Estimated GFR () 103.0 Estimated GFR (Non- 88.9 BUN/Creatinine Ratio 16.3 Random Glucose 84 mg/dl Calcium Level 8.0 mg/dl Phosphorus Level 3.3 mg/dl Magnesium Level 2.6 mg/dl Iron Level 44 mcg/dl Total Iron Binding Capacity 176 mcg/dl Ferritin 329.2 ng/ml Total Bilirubin 0.6 mg/dl Direct Bilirubin 0.2 mg/dl Aspartate Amino Transf (AST/SGOT) 59 U/L Alanine Aminotransferase (ALT/SGPT) 33 U/L Alkaline Phosphatase 100 U/L Lactate Dehydrogenase 180 U/L Total Protein 6.3 gm/dl Albumin 1.7 gm/dl Vitamin B12 Level 809 pg/mL Folate 5.15 ng/mL CT SCAN OF THE ABDOMEN AND PELVIS WITHOUT CONTRAST CLINICAL HISTORY: Bilateral Psoas Hematoma FOLLOW-UP EXAMINATION. COMPARISON STUDY: 07/08/2016 TECHNIQUE: CT scan of the abdomen and pelvis was performed from the lung bases to the proximal femurs. Images are reviewed in the axial, sagittal, and coronal planes. IV contrast was not administered for this examination. CT DOSE: 697.87 mGy.cm FINDINGS: Lower chest: There are moderate bilateral pleural effusions right greater than left. There is associated compressive atelectatic change. There is a small pericardial effusion which appears slightly larger than on the prior study. There is a small hiatal hernia. Liver: The unenhanced liver is normal in size, contour, and attenuation. There is no intrahepatic biliary ductal dilatation. Gallbladder: Unremarkable. Spleen: The spleen is mildly enlarged measuring 12 cm Pancreas: No pancreatic masses are visualized on this noncontrast study. There is mild inferior peripancreatic/mesenteric edema. Adrenal glands: Unremarkable. Kidneys: The unenhanced kidneys are normal in size without hydronephrosis. There is no contour deforming renal mass lesion. No renal calculi are identified. Bowel: There is mild edema adjacent to the transverse duodenum. There are no transition zones indicate bowel obstruction. There is colonic diverticulosis. The presence of mesenteric edema makes exclusion of diverticulitis difficult. Peritoneum: No free air is visualized. There is presacral edema. There is a fat-containing right inguinal hernia. There is tiny fat-containing umbilical hernia. Vasculature: The abdominal aorta is normal in course and caliber. Adenopathy: There are borderline enlarged aortocaval lymph nodes. Pelvic viscera: The bladder demonstrates increased density, likely secondary to previous administered contrast. There is mild prostamegaly. Skeletal structures: There is persistent enlargement of the right iliopsoas which measures 8 cm in AP diameter. The findings are suggestive of a hematoma. There is also mild enlargement of the left iliopsoas suspicious for a left iliopsoas hematoma. IMPRESSION: 1. Moderate bilateral pleural effusions right greater than left with associated bibasal atelectasis 2. Small but increasing pericardial effusion 3. Bilateral iliopsoas masses, likely representing hematomas. These remain similar in size the prior study 4. Extensive sigmoid diverticulosis. 5. Borderline enlarged aortocaval lymph nodes 6. Persistent nonspecific mesenteric edema. This may be secondary to the mesenteric vein thrombosis that was described on the prior contrast-enhanced study performed 07/16/2016 7. Diffuse body wall edema Electronically signed by: Carloz Abdullahi M.D. 07/19/2016 10:01 AM The status of Assessment & Plan 66 yo male with complicated picture of Group C Strep sepsis, diffuse DVT with pulmonary emboli, psoas hematomas, and now found to be HIV positive. Infection appears to have responded to Abx, but right hip pain worrisome for site of potential seeding. Would obtain MRI right hip. Would continue Augmentin for now , and consider re-imaging abdomen prior to discharge ti insure no abscess development. Will order appropriate HIV studies, but will manage as outpatient once out of hospital. Discussed with Dr. Holbrook. Will follow.
[2016-07-21] MEDS ORDERED: PANTOprazole SOD 40 MG TAB PO ONE (11:00)
--- NOTE | 2016-07-21 14:52 | Progress Note ---
Internal Med Progress Note Date of Service: Jul 21, 2016. Provider Documentation: SUBJECTIVE: The patient was seen and examined Generally weak but getting better Right leg and Hip pain better Has bilateral leg edema OBJECTIVE: Vital Signs-as noted below Exam: General-no distress at rest Sweating Eyes-normal ENT-normal Neck-supple Lungs-decreased breath sound at the right base Heart-Regular,no murmur appreciated Abdomen-Benign,no masses,bowel sound present Extremities-1+ Edema bilaterally Right lower extremity movement is much less painful today No acute arthritis Neuro-AAOx3 Lab data as noted below. ASSESSMENT & PLAN: ACUTE PE AND DVT: -RUL peripheral PE and left peroneal DVT as seen on CTA and LE doppler -Nonocclusive 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 -Has been on IV heparin and Coumadin started INR is 2.2 on 07/14/17 ,overlap Day #3 -no recent surgery/trauma/prolonged periods of immobility -patient is being followed for prostatic hypertrophy but denies any new symptoms ; has refused cancer screening colonoscopy on multiple occasions -Was on Heparin and Coumadin.Heparin stopped following Bilateral Psoas Hematoma -recheck INR tomorrow -subtherapeutic -Restart Coumadin -Hyper coagulation studies-negative. 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 -Anticoagulation with Coumadin resumed Bilateral Psoas Hematoma Right more than the Left Heparin discontinued and Coumadin is on hold Repeat CT in 2 days to evaluate the bleeding further Pain is a lot batter CT -size of the Hematoma has not increased Hb is slightly decreased to 8.0 on 07/20/16 Clinically improved Will need another CT scan in 2-3 days POSSIBLE SEPSIS: UNCLEAR SOURCE -presented with mildly productive cough, post-tussive vomiting and shaking chills -meets SIRS criteria with fever, tachycardia, hypotension and leukocytosis >13K -lactic acid 2.28 POC and 1.0 on repeat -blood cultures 1/2 growing group C beta strep; repeat blood cultures -on broad spectrum abx ( Zosyn and Levaquin) -patient has also required HIV testing which is pending, he is aware the initial is positive but the confirmatory is pending -Initial CXR was negative for any consolidation -Repeat CXR to r/o any pneumonia /effusion -will continue with Levaquin only Ongoing Fever -resolved Continue Antibiotics Repeat CXR and Blood cultures-both negative No More fever Admits to sweat easily Remains hemodynamically stable Doubt any Psoas Abscess Has had Fever of 38.5 Tylenol for now If noted again-will get Blood cultures Positive HIV test result -preliminary Await confirmatory test Patient aware and lymphadenopathy will ask for ID consult -appreciate input Right Hip/Lower extremity Pain Likely arthritis as in X-ray CT showed : 1. Heterogeneous enlargement of the bilateral iliopsoas muscles which most likely represents intramuscular hematomas. However, abscesses could also have a similar appearance. Recommend follow up to resolution to exclude the less likely possibility of an underlying mass. 2. Diffuse anasarca with small bilateral pleural effusions. 3. 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 There is questionable mild thickening at the distal descending colon with surrounding pericolonic fat stranding. This is adjacent to the area of the thrombosed inferior mesenteric vein and raises the possibility of a developing ischemic colitis. There is also soft tissue nodularity at the mesenteric border of the distal descending colon. Follow-up colonoscopy is recommended to exclude the possibility of underlying colonic lesion and to ensure resolution of the soft tissue nodularity. 4. Colonic diverticulosis. Bilateral Psoas Hematoma as above MRI of the right Hip to R/O joint infection Hypokalemia Supplement again and recheck Normalized ELEVATED TROPONIN: -troponin was 2.97; but has been trending down -most likely elevated due to PE, and possibly from acute sepsis vs. demand ischemia from tachycardia -EKG: sinus tach with no evidence of ischemia on admission -no wall motion abnormalities noted on TTE -is already on anticoagulation for PE HEMATURIA: -pt reports passing kidney stone a few days prior to admission -UA 2+ blood; urine cultures with no growth -Renal US: bilateral nephrolithiasis, prostatic hypertrophy and nonspecific bladder wall thickening unchanged from prior US -denies any additional urinary symptoms DVT PROPHYLAXIS IV Heparin and Oral Coumadin INR therapeutic since 07/14/16 DISPOSITION Awaited Discussed with the Family members Care transfer to Dr Merino from 07/22/16 Vital Signs: Date Time Temp Pulse Resp B/P Pulse Ox O2 Delivery O2 Flow Rate FiO2 07/21/16 12:00 95 Room Air 07/21/16 11:29 36.6 92 18 116/75 93 Room Air 07/21/16 08:22 36.7 89 18 122/79 93 Room Air 07/21/16 08:00 93 Room Air 07/21/16 04:10 36.6 90 19 121/80 93 Room Air 07/21/16 04:00 93 Room Air 07/21/16 00:00 92 Room Air 07/21/16 00:00 37.0 95 20 123/78 92 Room Air 07/20/16 20:00 92 Room Air 07/20/16 19:43 37.3 100 20 116/73 92 Room Air 07/20/16 16:00 Room Air 07/20/16 15:47 37.1 98 18 111/74 93 Room Air Lab Results: Results Past 24 Hours Test 07/21/16 07:00 Range/Units White Blood Count 5.15 4.8-10.8 K/uL Red Blood Count 3.06 4.7-6.1 M/uL Hemoglobin 8.6 14.0-18.0 g/dL Hematocrit 26.2 42-52 % Mean Corpuscular Volume 85.6 80-100 fL Mean Corpuscular Hemoglobin 28.1 25-34 pg Mean Corpuscular Hemoglobin Concent 32.8 32-36 g/dl RDW Standard Deviation 49.9 36.4-46.3 fL RDW Coefficient of Variation 15.9 11.5-14.5 % Platelet Count 384 130-400 K/uL Mean Platelet Volume 8.2 7.4-10.4 fL Prothrombin Time 12.3 9.0-12.0 SECONDS Prothromb Time International Ratio 1.1 0.9-1.1 Sodium Level 140 136-145 mmol/L Potassium Level 4.3 3.5-5.1 mmol/L Chloride Level 102 98-107 mmol/L Carbon Dioxide Level 30 21-32 mmol/L Anion Gap 8.0 3-11 mmol/L Blood Urea Nitrogen 14 7-18 mg/dl Creatinine 0.88 0.60-1.40 mg/dl Est Creatinine Clear Calc Drug Dose 85.3 ml/min Estimated GFR () 103.0 Estimated GFR (Non- 88.9 BUN/Creatinine Ratio 16.3 10-20 Random Glucose 84 70-99 mg/dl Calcium Level 8.0 8.5-10.1 mg/dl Phosphorus Level 3.3 2.5-4.9 mg/dl Magnesium Level 2.6 1.8-2.4 mg/dl Iron Level 44 35-175 mcg/dl Total Iron Binding Capacity 176 250-450 mcg/dl Ferritin 329.2 8.0-388.0 ng/ml Total Bilirubin 0.6 0.2-1 mg/dl Direct Bilirubin 0.2 0-0.2 mg/dl Aspartate Amino Transf (AST/SGOT) 59 15-37 U/L Alanine Aminotransferase (ALT/SGPT) 33 12-78 U/L Alkaline Phosphatase 100 45-117 U/L Lactate Dehydrogenase 180 87-241 U/L Total Protein 6.3 6.4-8.2 gm/dl Albumin 1.7 3.4-5.0 gm/dl Vitamin B12 Level 809 211-911 pg/mL Folate 5.15 >5.38 ng/mL
[2016-07-21] MEDS: WARFARIN SOD 5 MG TAB PO SCH (17:00)
[2016-07-21] MEDS: MELATONIN 10 MG PO SCH (21:00)
[2016-07-22] VITALS (8 sets, daily range): BP systolic 118–138; BP diastolic 63–78; PULSE 60–99; TEMP 36.6–37; O2SAT 93–97
[2016-07-22] MEDS: OXYCODONE/ACETAMINOPHEN 5-325 TAB PO PRN ×3 (00:12→23:49)
[2016-07-22 07:33] LABS: HEMATOCRIT 26.1 % (42-52); MEAN CELL VOLUME 86.4 fL (80-100); MEAN CORPUSCULAR HEMOGLOBIN 28.5 pg (25-34); MEAN PLATELET VOLUME 8.4 fL (7.4-10.4); PLATELET COUNT 405 K/uL (130-400); RED BLOOD COUNT 3.02 M/uL (4.7-6.1); WHITE BLOOD COUNT 4.78 K/uL (4.8-10.8)
[2016-07-22 07:40] LABS: INR 1.2 (0.9-1.1); PROTHROMBIN TIME (PATIENT) 12.8 SECONDS (9.0-12.0)
[2016-07-22 08:00] LABS: BUN/CREATININE RATIO 13.1 (10-20); CALCIUM 8.1 mg/dl (8.5-10.1); CREATININE 0.97 mg/dl (0.60-1.40); POTASSIUM 4.3 mmol/L (3.5-5.1)
[2016-07-22] MEDS: PANTOprazole SOD 40 MG TAB PO SCH (08:24)
[2016-07-22] MEDS: ACETAMINOPHEN 325 MG TAB PO PRN (10:20)
--- NOTE | 2016-07-22 11:48 | Progress Note ---
Medicine Progress Note Date & Time of Visit: Jul 22, 2016 at 11:19. Subjective Pt was seen and examined Lying in bed comfortable with no distress Pt said that he fees fine he said that he continue to have some pain in his right hip he was unable to get the MRI done because he had metal in his eyes from prior eyes surgery denies any chest pain, palpitation, dizziness and sob Objective Last 8 Hrs Date Time Temp Pulse Resp B/P Pulse Ox O2 Delivery O2 Flow Rate FiO2 07/22/16 11:17 36.8 92 18 118/75 93 Room Air 07/22/16 08:38 36.8 60 18 121/63 97 07/22/16 08:00 Room Air 07/22/16 04:00 36.6 89 17 118/77 94 Room Air 07/22/16 04:00 94 Room Air Physical Exam: General- No acute distress Head- atraumatic Eyes- PERRL, EOMI ENT- oropharynx clear Neck- supple, no JVD Lungs- clear to auscultation and percussion Heart- regular rhythm; no murmur Abdomen- normal bowel sounds, soft, nontender Extremities- Right hip tenderness, no calf tenderness Neuro- alert, oriented x 3; PERRL, EOMI Skin- warm & dry Laboratory Results: Last 24 Hours Test 07/22/16 07:06 07/22/16 11:03 White Blood Count 4.78 K/uL Red Blood Count 3.02 M/uL Hemoglobin 8.6 g/dL Hematocrit 26.1 % Mean Corpuscular Volume 86.4 fL Mean Corpuscular Hemoglobin 28.5 pg Mean Corpuscular Hemoglobin Concent 33.0 g/dl RDW Standard Deviation 50.6 fL RDW Coefficient of Variation 15.8 % Platelet Count 405 K/uL Mean Platelet Volume 8.4 fL Prothrombin Time 12.8 SECONDS Prothromb Time International Ratio 1.2 Sodium Level 138 mmol/L Potassium Level 4.3 mmol/L Chloride Level 102 mmol/L Carbon Dioxide Level 30 mmol/L Anion Gap 6.0 mmol/L Blood Urea Nitrogen 13 mg/dl Creatinine 0.97 mg/dl Est Creatinine Clear Calc Drug Dose 71.5 ml/min Estimated GFR () 93.2 Estimated GFR (Non- 80.5 BUN/Creatinine Ratio 13.1 Random Glucose 78 mg/dl Calcium Level 8.1 mg/dl Assessment & Plan ACUTE PE AND DVT: -RUL peripheral PE and left peroneal DVT as seen on CTA and LE doppler -Nonocclusive 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 -Received Coumadin with IV heparin drip bridge -no recent surgery/trauma/prolonged periods of immobility -patient is being followed for prostatic hypertrophy but denies any new symptoms ; refused cancer screening colonoscopy on multiple occasions -Heparin was stopped following Bilateral Psoas Hematoma -Coumadin was restarted. INR today 1.2 -Hyper coagulation studies-negative. -Negative Prothrombin Gene Mutation and Negative Factor V Leiden Bilateral Psoas Hematoma Right more than the Left Heparin discontinued and Coumadin was on hold, then restarted yesterday CT -size of the Hematoma has not increased Hgb is slightly decreased to 8.6 on 07/22/16 Stable Consider to repeat CT to monitor. POSSIBLE SEPSIS: UNCLEAR SOURCE -presented with mildly productive cough, post-tussive vomiting and shaking chills -meets SIRS criteria with fever, tachycardia, hypotension and leukocytosis >13K -lactic acid 2.28 POC and 1.0 on repeat -blood cultures 1/2 growing group C beta strep; repeat blood cultures -on broad spectrum abx ( Zosyn and Levaquin) -patient has also required HIV testing which is pending, he is aware the initial is positive but the confirmatory is pending -Initial CXR was negative for any consolidation -Repeat CXR to r/o any pneumonia /effusion -will continue with Levaquin only - ID on board Fever -resolved Continue Antibiotics Repeat CXR and Blood cultures-both negative No More fever Admits to sweat easily Remains hemodynamically stable Doubt any Psoas Abscess Tylenol for now If noted again-will get Blood cultures Stable Positive HIV test result -preliminary Await confirmatory test Patient aware and lymphadenopathy ID consult Right Hip/Lower extremity Pain Likely arthritis as in X-ray CT showed Heterogeneous enlargement of the bilateral iliopsoas muscles which most likely represents intramuscular hematomas. However, abscesses could also have a similar appearance. Unable to get an MRI of the HIP due to metal Will get a CT with contrast Hypokalemia Normalized Stable ELEVATED TROPONIN: -troponin was 2.97; but has been trending down -most likely elevated due to PE, and possibly from acute sepsis vs. demand ischemia from tachycardia -EKG: sinus tach with no evidence of ischemia on admission -no wall motion abnormalities noted on TTE -is already on anticoagulation for PE HEMATURIA: -pt reports passing kidney stone a few days prior to admission -UA 2+ blood; urine cultures with no growth -Renal US: bilateral nephrolithiasis, prostatic hypertrophy and nonspecific bladder wall thickening unchanged from prior US -Asymptomatic DVT PROPHYLAXIS On coumadin DISPOSITION Current Inpatient Medications: Current Inpatient Medications Medications (Trade) Dose Ordered Sig/Amrit Route Start Time Stop Time Status Last Admin Dose Admin Ondansetron HCl (Zofran Inj) 4 mg Q6H PRN IV 07/11/16 22:00 08/10/16 21:59 07/21/16 19:47 4 MG Nitroglycerin (Nitrostat Tab) 0.4 mg UD PRN SL 07/11/16 22:00 08/10/16 21:59 Zolpidem Tartrate (Ambien Tab) 5 mg HSZ PRN PO 07/12/16 03:45 08/11/16 03:44 07/17/16 23:52 5 MG Aspirin (Ecotrin Tab) 81 mg QAM PO 07/12/16 09:00 08/11/16 08:59 Future Hold 07/17/16 07:39 81 MG Tramadol HCl (Ultram Tab) 50 mg Q6H PRN PO 07/12/16 20:45 08/11/16 20:44 07/17/16 00:30 50 MG Morphine Sulfate 4 mg 4 mg Q6H PRN IV 07/12/16 23:30 07/26/16 23:29 07/16/16 21:08 4 MG Promethazine HCl/ Sodium Chloride (Phenergan Inj/ Nss 50ml) 50.5 ml @ 204 mls/hr Q6H PRN IV 07/13/16 12:30 08/12/16 12:29 07/14/16 16:23 204 MLS/HR Oxycodone/ Acetaminophen (Percocet 5-325MG Tab) 1 tab Q6H PRN PO 07/16/16 20:45 07/30/16 20:44 07/22/16 00:12 1 TAB Non-Formulary Medication (Non-Formulary Patient'S Own Med) 1 ea HS PO 07/18/16 21:00 08/17/16 20:59 07/21/16 21:00 1 EA Acetaminophen (Tylenol Tab) 650 mg Q6H PRN PO 07/18/16 15:30 08/17/16 15:29 07/22/16 10:20 650 MG Pantoprazole Sodium (Protonix Tab) 40 mg QAM PO 07/22/16 09:00 08/21/16 08:59 07/22/16 08:24 40 MG Warfarin Sodium (Coumadin Tab) 5 mg DAILY@16 PO 07/21/16 16:00 08/20/16 15:59 07/21/16 17:00 5 MG
--- NOTE | 2016-07-22 14:48 | Infectious Disease Progress Nt ---
Progress Note Date of Service Jul 22, 2016. Subjective Pt evaluation today including: conversation w/ patient, physical exam, chart review, lab review, review of studies, conversation w/ actuarial consultant, review of inpatient medication list Patient offers no new complaints today. Remains afebrile. Still with hip pain. Unable to obtain MRI because of metal in eyes. All Other Systems: Reviewed and Negative Medications Current Inpatient Medications Medications (Trade) Dose Ordered Sig/Amrit Route Start Time Stop Time Status Last Admin Dose Admin Ondansetron HCl (Zofran Inj) 4 mg Q6H PRN IV 07/11/16 22:00 08/10/16 21:59 07/21/16 19:47 4 MG Nitroglycerin (Nitrostat Tab) 0.4 mg UD PRN SL 07/11/16 22:00 08/10/16 21:59 Zolpidem Tartrate (Ambien Tab) 5 mg HSZ PRN PO 07/12/16 03:45 08/11/16 03:44 07/17/16 23:52 5 MG Aspirin (Ecotrin Tab) 81 mg QAM PO 07/12/16 09:00 08/11/16 08:59 Future Hold 07/17/16 07:39 81 MG Tramadol HCl (Ultram Tab) 50 mg Q6H PRN PO 07/12/16 20:45 08/11/16 20:44 07/17/16 00:30 50 MG Morphine Sulfate 4 mg 4 mg Q6H PRN IV 07/12/16 23:30 07/26/16 23:29 07/16/16 21:08 4 MG Promethazine HCl/ Sodium Chloride (Phenergan Inj/ Nss 50ml) 50.5 ml @ 204 mls/hr Q6H PRN IV 07/13/16 12:30 08/12/16 12:29 07/14/16 16:23 204 MLS/HR Oxycodone/ Acetaminophen (Percocet 5-325MG Tab) 1 tab Q6H PRN PO 07/16/16 20:45 07/30/16 20:44 07/22/16 13:59 1 TAB Non-Formulary Medication (Non-Formulary Patient'S Own Med) 1 ea HS PO 07/18/16 21:00 08/17/16 20:59 07/21/16 21:00 1 EA Acetaminophen (Tylenol Tab) 650 mg Q6H PRN PO 07/18/16 15:30 08/17/16 15:29 07/22/16 10:20 650 MG Pantoprazole Sodium (Protonix Tab) 40 mg QAM PO 07/22/16 09:00 08/21/16 08:59 07/22/16 08:24 40 MG Warfarin Sodium (Coumadin Tab) 5 mg DAILY@16 PO 07/21/16 16:00 08/20/16 15:59 07/21/16 17:00 5 MG Objective Vital Signs Date Time Temp Pulse Resp B/P Pulse Ox O2 Delivery O2 Flow Rate FiO2 07/22/16 12:00 Room Air 07/22/16 11:17 36.8 92 18 118/75 93 Room Air 07/22/16 08:38 36.8 60 18 121/63 97 07/22/16 08:00 Room Air 07/22/16 04:00 36.6 89 17 118/77 94 Room Air 07/22/16 04:00 94 Room Air 07/22/16 00:00 37.0 99 120/78 94 Room Air 07/22/16 00:00 93 Room Air 07/21/16 20:00 92 Room Air 07/21/16 20:00 37.0 105 18 123/80 92 Room Air 07/21/16 16:12 36.7 91 18 119/76 94 Room Air 07/21/16 16:00 95 Room Air Physical Exam General Appearance: WD/WN, no apparent distress Eyes: normal inspection, sclerae normal ENT: normal ENT inspection, pharynx normal Neck: supple, no adenopathy, trachea midline Respiratory/Chest: chest non-tender, lungs clear, normal breath sounds, no respiratory distress Cardiovascular: regular rate, rhythm, no gallop, no murmur Abdomen: normal bowel sounds, non tender, soft, no organomegaly Extremities: non-tender, + swelling Neurologic/Psychiatric: alert, oriented x 3 Skin: normal color, warm/dry, no rash Lymphatic: no adenopathy Laboratory Results Last 24 Hours Test 07/22/16 07:06 07/22/16 11:03 White Blood Count 4.78 K/uL Red Blood Count 3.02 M/uL Hemoglobin 8.6 g/dL Hematocrit 26.1 % Mean Corpuscular Volume 86.4 fL Mean Corpuscular Hemoglobin 28.5 pg Mean Corpuscular Hemoglobin Concent 33.0 g/dl RDW Standard Deviation 50.6 fL RDW Coefficient of Variation 15.8 % Platelet Count 405 K/uL Mean Platelet Volume 8.4 fL Prothrombin Time 12.8 SECONDS Prothromb Time International Ratio 1.2 Sodium Level 138 mmol/L Potassium Level 4.3 mmol/L Chloride Level 102 mmol/L Carbon Dioxide Level 30 mmol/L Anion Gap 6.0 mmol/L Blood Urea Nitrogen 13 mg/dl Creatinine 0.97 mg/dl Est Creatinine Clear Calc Drug Dose 71.5 ml/min Estimated GFR () 93.2 Estimated GFR (Non- 80.5 BUN/Creatinine Ratio 13.1 Random Glucose 78 mg/dl Calcium Level 8.1 mg/dl Assessment and Plan 66 yo male with complicated picture of Group C Strep sepsis, diffuse DVT with pulmonary emboli, psoas hematomas, and now found to be HIV positive. Infection appears to have responded to Abx, but right hip pain worrisome for site of potential seeding. Will follow closely for any clinical worsening on oral antibiotics. He will follow-up with me for his HIV infection as an outpatient.
[2016-07-22] MEDS: WARFARIN SOD 5 MG TAB PO SCH (16:15)
[2016-07-22] MEDS: MELATONIN 10 MG PO SCH (23:49)
[2016-07-23 00:45] VITALS: BP 127/82; PULSE 95; TEMP 36.5; O2SAT 93
[2016-07-23 08:00] VITALS: O2SAT 93
[2016-07-23 08:00] LABS: INR 1.6 (0.9-1.1); PROTHROMBIN TIME (PATIENT) 17.7 SECONDS (9.0-12.0)
[2016-07-23 08:28] VITALS: BP 115/80; PULSE 95; TEMP 36.6; O2SAT 93
[2016-07-23] MEDS: PANTOprazole SOD 40 MG TAB PO SCH (09:26)
[2016-07-23 11:22] LABS: HEMATOCRIT 27.9 % (42-52); MEAN CELL VOLUME 87.5 fL (80-100); MEAN CORPUSCULAR HEMOGLOBIN 28.2 pg (25-34); MEAN CORPUSCULAR HGB CONC 32.3 g/dl (32-36); MEAN PLATELET VOLUME 8.8 fL (7.4-10.4); PLATELET COUNT 456 K/uL (130-400); RED BLOOD COUNT 3.19 M/uL (4.7-6.1); WHITE BLOOD COUNT 5.55 K/uL (4.8-10.8)
[2016-07-23] MEDS: WARFARIN SOD 5 MG TAB PO SCH (15:35)
--- NOTE | 2016-07-23 15:39 | DIAGNOSTIC IMAGING REPORT ---
CT OF THE RIGHT HIP WITHOUT CONTRAST CT DOSE: 782.39 mGy.cm CLINICAL HISTORY: Right hip pain. Follow-up hematoma. TECHNIQUE: Axial images of the right hip were obtained without IV contrast. Sagittal and coronal reconstructions were viewed. COMPARISON STUDY: CT of the right hip July 16, [address] of the abdomen and pelvis July 19, 2016. FINDINGS: Alignment of the right hip is anatomic. There is no acute fracture. There is severe arthritis of the right hip. A hyperdense mass-like abnormality within the right iliopsoas muscle is similar to prior exam of July 19, 2016. This suggests an intramuscular hematoma. Subcutaneous edema of the lateral right thigh is again noted. There is also presacral infiltration which was shown on prior exam. IMPRESSION: No significant change in the right iliopsoas intramuscular hematoma since CT of July 19, 2016. Electronically signed by: Willis Hunter M.D. 07/23/2016 3:37 PM
[2016-07-23 15:45] VITALS: BP 122/80; PULSE 91; TEMP 36.6; O2SAT 95
[2016-07-23 16:00] VITALS: O2SAT 93
--- NOTE | 2016-07-23 17:12 | Progress Note ---
Medicine Progress Note Date & Time of Visit: Jul 23, 2016 at 17:02. Subjective Pt was seen and examined Lying bed comfortable with no distress Pt said that he feels ok He continue to have some tenderness in the right hip He said that the swelling is coming down denies any chest pain, palpitation, dizziness and sob Objective Last 8 Hrs Date Time Temp Pulse Resp B/P Pulse Ox O2 Delivery O2 Flow Rate FiO2 07/23/16 15:45 36.6 91 20 122/80 95 Room Air Physical Exam: General- No acute distress Head- atraumatic Eyes- PERRL, EOMI ENT- oropharynx clear Neck- supple, no JVD Lungs- clear to auscultation and percussion Heart- regular rhythm; no murmur Abdomen- normal bowel sounds, soft, nontender Extremities- Right hip tenderness, right thigh swelling Neuro- alert, oriented x 3; PERRL, EOMI Skin- warm & dry Laboratory Results: Last 24 Hours Test 07/23/16 07:20 White Blood Count 5.55 K/uL Red Blood Count 3.19 M/uL Hemoglobin 9.0 g/dL Hematocrit 27.9 % Mean Corpuscular Volume 87.5 fL Mean Corpuscular Hemoglobin 28.2 pg Mean Corpuscular Hemoglobin Concent 32.3 g/dl RDW Standard Deviation 51.3 fL RDW Coefficient of Variation 16.0 % Platelet Count 456 K/uL Mean Platelet Volume 8.8 fL Prothrombin Time 17.7 SECONDS Prothromb Time International Ratio 1.6 Assessment & Plan ACUTE PE AND DVT: -RUL peripheral PE and left peroneal DVT as seen on CTA and LE doppler -Nonocclusive 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 -Received Coumadin with IV heparin drip bridge -no recent surgery/trauma/prolonged periods of immobility -patient is being followed for prostatic hypertrophy but denies any new symptoms ; refused cancer screening colonoscopy on multiple occasions -Heparin was stopped following Bilateral Psoas Hematoma -Coumadin was restarted. INR today 1.6 -Hyper coagulation studies-negative. -Negative Prothrombin Gene Mutation and Negative Factor V Leiden Bilateral Psoas Hematoma Right more than the Left Heparin discontinued and Coumadin was on hold, then restarted yesterday CT -size of the Hematoma has not increased Hgb is slightly decreased to 8.6 on 07/22/[address] of the right hip shown no change in the hematoma continue monitor cbc POSSIBLE SEPSIS: UNCLEAR SOURCE -presented with mildly productive cough, post-tussive vomiting and shaking chills -meets SIRS criteria with fever, tachycardia, hypotension and leukocytosis >13K -lactic acid 2.28 POC and 1.0 on repeat -blood cultures 1/2 growing group C beta strep; repeat blood cultures -on broad spectrum abx ( Zosyn and Levaquin) -patient has also required HIV testing which is pending, he is aware the initial is positive but the confirmatory is pending -Initial CXR was negative for any consolidation -Repeat CXR to r/o any pneumonia /effusion -will continue with Levaquin only - ID on board Fever -resolved Continue Antibiotics Repeat CXR and Blood cultures-both negative No More fever Admits to sweat easily Remains hemodynamically stable Doubt any Psoas Abscess Tylenol for now If noted again-will get Blood cultures Stable Positive HIV test result -preliminary Await confirmatory test Patient aware and lymphadenopathy Pt did not discuss the result yet with his ID on board Right Hip/Lower extremity Pain Likely arthritis as in X-ray CT showed Heterogeneous enlargement of the bilateral iliopsoas muscles which most likely represents intramuscular hematomas. However, abscesses could also have a similar appearance. Unable to get an MRI of the HIP due to metal Repeat CT of the right hip shown no change in the hematoma Hypokalemia Normalized Stable ELEVATED TROPONIN: -troponin was 2.97; but has been trending down -most likely elevated due to PE, and possibly from acute sepsis vs. demand ischemia from tachycardia -EKG: sinus tach with no evidence of ischemia on admission -no wall motion abnormalities noted on TTE -is already on anticoagulation for PE HEMATURIA: -pt reports passing kidney stone a few days prior to admission -UA 2+ blood; urine cultures with no growth -Renal US: bilateral nephrolithiasis, prostatic hypertrophy and nonspecific bladder wall thickening unchanged from prior US -Asymptomatic -Monitor him closely since he is on anticoagulant DVT PROPHYLAXIS On coumadin DISPOSITION Will d/c tomorrow Current Inpatient Medications: Current Inpatient Medications Medications (Trade) Dose Ordered Sig/Amrit Route Start Time Stop Time Status Last Admin Dose Admin Ondansetron HCl (Zofran Inj) 4 mg Q6H PRN IV 07/11/16 22:00 08/10/16 21:59 07/21/16 19:47 4 MG Nitroglycerin (Nitrostat Tab) 0.4 mg UD PRN SL 07/11/16 22:00 08/10/16 21:59 Zolpidem Tartrate (Ambien Tab) 5 mg HSZ PRN PO 07/12/16 03:45 08/11/16 03:44 07/17/16 23:52 5 MG Aspirin (Ecotrin Tab) 81 mg QAM PO 07/12/16 09:00 08/11/16 08:59 Future Hold 07/17/16 07:39 81 MG Tramadol HCl (Ultram Tab) 50 mg Q6H PRN PO 07/12/16 20:45 08/11/16 20:44 07/17/16 00:30 50 MG Morphine Sulfate 4 mg 4 mg Q6H PRN IV 07/12/16 23:30 07/26/16 23:29 07/16/16 21:08 4 MG Promethazine HCl/ Sodium Chloride (Phenergan Inj/ Nss 50ml) 50.5 ml @ 204 mls/hr Q6H PRN IV 07/13/16 12:30 08/12/16 12:29 07/14/16 16:23 204 MLS/HR Oxycodone/ Acetaminophen (Percocet 5-325MG Tab) 1 tab Q6H PRN PO 07/16/16 20:45 07/30/16 20:44 07/22/16 23:49 1 TAB Non-Formulary Medication (Non-Formulary Patient'S Own Med) 1 ea HS PO 07/18/16 21:00 08/17/16 20:59 07/22/16 23:49 1 EA Acetaminophen (Tylenol Tab) 650 mg Q6H PRN PO 07/18/16 15:30 08/17/16 15:29 07/22/16 10:20 650 MG Pantoprazole Sodium (Protonix Tab) 40 mg QAM PO 07/22/16 09:00 08/21/16 08:59 07/23/16 09:26 40 MG Warfarin Sodium (Coumadin Tab) 5 mg DAILY@16 PO 07/21/16 16:00 08/20/16 15:59 07/23/16 15:35 5 MG
--- NOTE | 2016-07-23 19:56 | Infectious Disease Progress Nt ---
Progress Note Date of Service Jul 23, 2016. Subjective Pt evaluation today including: conversation w/ patient, physical exam, chart review, lab review, review of studies, conversation w/ wealth management consultant, review of inpatient medication list Patient offers no new complaints today. Pain controlled. No fever. Tolerating Augmentin without apparent difficulty. All Other Systems: Reviewed and Negative Medications Current Inpatient Medications Medications (Trade) Dose Ordered Sig/Amrit Route Start Time Stop Time Status Last Admin Dose Admin Ondansetron HCl (Zofran Inj) 4 mg Q6H PRN IV 07/11/16 22:00 08/10/16 21:59 07/21/16 19:47 4 MG Nitroglycerin (Nitrostat Tab) 0.4 mg UD PRN SL 07/11/16 22:00 08/10/16 21:59 Zolpidem Tartrate (Ambien Tab) 5 mg HSZ PRN PO 07/12/16 03:45 08/11/16 03:44 07/17/16 23:52 5 MG Aspirin (Ecotrin Tab) 81 mg QAM PO 07/12/16 09:00 08/11/16 08:59 Future Hold 07/17/16 07:39 81 MG Tramadol HCl (Ultram Tab) 50 mg Q6H PRN PO 07/12/16 20:45 08/11/16 20:44 07/17/16 00:30 50 MG Morphine Sulfate 4 mg 4 mg Q6H PRN IV 07/12/16 23:30 07/26/16 23:29 07/16/16 21:08 4 MG Promethazine HCl/ Sodium Chloride (Phenergan Inj/ Nss 50ml) 50.5 ml @ 204 mls/hr Q6H PRN IV 07/13/16 12:30 08/12/16 12:29 07/14/16 16:23 204 MLS/HR Oxycodone/ Acetaminophen (Percocet 5-325MG Tab) 1 tab Q6H PRN PO 07/16/16 20:45 07/30/16 20:44 07/22/16 23:49 1 TAB Non-Formulary Medication (Non-Formulary Patient'S Own Med) 1 ea HS PO 07/18/16 21:00 08/17/16 20:59 07/22/16 23:49 1 EA Acetaminophen (Tylenol Tab) 650 mg Q6H PRN PO 07/18/16 15:30 08/17/16 15:29 07/22/16 10:20 650 MG Pantoprazole Sodium (Protonix Tab) 40 mg QAM PO 07/22/16 09:00 08/21/16 08:59 07/23/16 09:26 40 MG Warfarin Sodium (Coumadin Tab) 5 mg DAILY@16 PO 07/21/16 16:00 08/20/16 15:59 07/23/16 15:35 5 MG Objective Vital Signs Date Time Temp Pulse Resp B/P Pulse Ox O2 Delivery O2 Flow Rate FiO2 07/23/16 16:00 93 Room Air 07/23/16 15:45 36.6 91 20 122/80 95 Room Air 07/23/16 08:28 36.6 95 17 115/80 93 Room Air 07/23/16 08:00 93 Room Air 07/23/16 00:45 36.5 95 18 127/82 93 Room Air 07/23/16 00:05 Room Air 07/23/16 00:00 Room Air 07/22/16 21:27 36.6 90 16 94 07/22/16 20:24 36.6 90 16 124/74 94 Room Air 07/22/16 20:05 Room Air 07/22/16 20:00 Room Air Physical Exam General Appearance: WD/WN, no apparent distress Eyes: normal inspection, sclerae normal ENT: normal ENT inspection, pharynx normal Neck: supple, no adenopathy, trachea midline Respiratory/Chest: chest non-tender, lungs clear, normal breath sounds, no respiratory distress Cardiovascular: regular rate, rhythm, no gallop, no murmur Abdomen: normal bowel sounds, non tender, soft, no organomegaly Extremities: non-tender, + swelling Neurologic/Psychiatric: alert, oriented x 3 Skin: normal color, warm/dry, no rash Lymphatic: no adenopathy Laboratory Results Last 24 Hours Test 07/23/16 07:20 White Blood Count 5.55 K/uL Red Blood Count 3.19 M/uL Hemoglobin 9.0 g/dL Hematocrit 27.9 % Mean Corpuscular Volume 87.5 fL Mean Corpuscular Hemoglobin 28.2 pg Mean Corpuscular Hemoglobin Concent 32.3 g/dl RDW Standard Deviation 51.3 fL RDW Coefficient of Variation 16.0 % Platelet Count 456 K/uL Mean Platelet Volume 8.8 fL Prothrombin Time 17.7 SECONDS Prothromb Time International Ratio 1.6 Assessment and Plan 66 yo male with complicated picture of Group C Strep sepsis, diffuse DVT with pulmonary emboli, psoas hematomas, and now found to be HIV positive. Infection appears to have responded to Abx, but right hip pain worrisome for site of potential seeding. Will follow closely for any clinical worsening on oral antibiotics. He will follow-up with me for his HIV infection as an outpatient.
[2016-07-23 23:05] VITALS: BP 118/81; PULSE 94; TEMP 36.6; O2SAT 94
[2016-07-24] MEDS: OXYCODONE/ACETAMINOPHEN 5-325 TAB PO PRN (00:03)
[2016-07-24] MEDS: MELATONIN 10 MG PO SCH (00:04)
[2016-07-24 07:44] LABS: INR 2.3 (0.9-1.1); PROTHROMBIN TIME (PATIENT) 25.7 SECONDS (9.0-12.0)
[2016-07-24] MEDS: PANTOprazole SOD 40 MG TAB PO SCH (08:06)
[2016-07-24 08:18] VITALS: BP 120/76; PULSE 81; TEMP 36.8; O2SAT 93
[2016-07-24 08:32] LABS: BUN/CREATININE RATIO 20.1 (10-20); CALCIUM 8.6 mg/dl (8.5-10.1); CREATININE 0.95 mg/dl (0.60-1.40); POTASSIUM 4.3 mmol/L (3.5-5.1)
[2016-07-24 08:55] LABS: HEMATOCRIT 27.9 % (42-52); MEAN CELL VOLUME 87.2 fL (80-100); MEAN CORPUSCULAR HEMOGLOBIN 28.1 pg (25-34); MEAN CORPUSCULAR HGB CONC 32.3 g/dl (32-36); MEAN PLATELET VOLUME 8.8 fL (7.4-10.4); PLATELET COUNT 409 K/uL (130-400); WHITE BLOOD COUNT 4.83 K/uL (4.8-10.8)
--- NOTE | 2016-07-24 11:42 | Progress Note ---
Medicine Progress Note Date & Time of Visit: Jul 24, 2016 at 11:18. Subjective Pt was seen and examined Sitting in bed comfortable with no distress Pt said that he feels fine he said that the right hip pain is slightly improved denies any chest pain, palpitation, dizziness and sob Objective Last 8 Hrs Date Time Temp Pulse Resp B/P Pulse Ox O2 Delivery O2 Flow Rate FiO2 07/24/16 08:18 36.8 81 18 120/76 93 Room Air 07/24/16 08:00 Room Air Physical Exam: General- No acute distress Head- atraumatic Eyes- PERRL, EOMI ENT- oropharynx clear Neck- supple, no JVD Lungs- clear to auscultation and percussion Heart- regular rhythm; no murmur Abdomen- normal bowel sounds, soft, nontender Extremities- Right hip tenderness, right thigh swelling Neuro- alert, oriented x 3; PERRL, EOMI Skin- warm & dry Laboratory Results: Last 24 Hours Test 07/24/16 06:56 White Blood Count 4.83 K/uL Red Blood Count 3.20 M/uL Hemoglobin 9.0 g/dL Hematocrit 27.9 % Mean Corpuscular Volume 87.2 fL Mean Corpuscular Hemoglobin 28.1 pg Mean Corpuscular Hemoglobin Concent 32.3 g/dl RDW Standard Deviation 51.3 fL RDW Coefficient of Variation 16.1 % Platelet Count 409 K/uL Mean Platelet Volume 8.8 fL Prothrombin Time 25.7 SECONDS Prothromb Time International Ratio 2.3 Sodium Level 138 mmol/L Potassium Level 4.3 mmol/L Chloride Level 103 mmol/L Carbon Dioxide Level 29 mmol/L Anion Gap 6.0 mmol/L Blood Urea Nitrogen 19 mg/dl Creatinine 0.95 mg/dl Est Creatinine Clear Calc Drug Dose 73.0 ml/min Estimated GFR () 95.6 Estimated GFR (Non- 82.5 BUN/Creatinine Ratio 20.1 Random Glucose 75 mg/dl Calcium Level 8.6 mg/dl Assessment & Plan ACUTE PE AND DVT: -RUL peripheral PE and left peroneal DVT as seen on CTA and LE doppler -Nonocclusive 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 -Received Coumadin with IV heparin drip bridge -no recent surgery/trauma/prolonged periods of immobility -patient is being followed for prostatic hypertrophy but denies any new symptoms ; refused cancer screening colonoscopy on multiple occasions -Heparin was stopped following Bilateral Psoas Hematoma -Coumadin was restarted. INR today 2.3 (07/24/16) -Hyper coagulation studies-negative. -Negative Prothrombin Gene Mutation and Negative Factor V Leiden -Will discharge on coumadin 2 mg - Arrange made for him to follow with the anticoagulant clinic Bilateral Psoas Hematoma Right more than the Left Heparin discontinued and Coumadin was on hold, then restarted CT -size of the Hematoma has not increased Hgb is slightly decreased to 8.6 on 07/22/[address] of the right hip shown no change in the hematoma Hgb today is 9 and INR is 2.3 (07/24/16) Will arrange him to follow with the anticoagulant clinic Ambulatory dysfunction due to right hip pain PT/OT Continue ambulate with rolling walker POSSIBLE SEPSIS: UNCLEAR SOURCE -presented with mildly productive cough, post-tussive vomiting and shaking chills -meets SIRS criteria with fever, tachycardia, hypotension and leukocytosis >13K -lactic acid 2.28 POC and 1.0 on repeat -blood cultures 1/2 growing group C beta strep; repeat blood cultures -on broad spectrum abx ( Zosyn and Levaquin) -patient has also required HIV testing which is pending, he is aware the initial is positive but the confirmatory is pending -Initial CXR was negative for any consolidation -Repeat CXR to r/o any pneumonia /effusion -Complete Levaquin course - ID on board Fever -resolved Continue Antibiotics Repeat CXR and Blood cultures-both negative No More fever Admits to sweat easily Remains hemodynamically stable Doubt any Psoas Abscess Tylenol for now If noted again-will get Blood cultures Stable Positive HIV test result -preliminary Await confirmatory test Patient aware and lymphadenopathy Pt did not discuss the result yet with his ID is on board waiting for confirmation result Pt will follow with ID in 2 weeks to discuss lab result and possible treatment Right Hip/Lower extremity Pain Likely arthritis as in X-ray CT showed Heterogeneous enlargement of the bilateral iliopsoas muscles which most likely represents intramuscular hematomas. However, abscesses could also have a similar appearance. Unable to get an MRI of the HIP due to metal Repeat CT of the right hip shown no change in the hematoma Stable Hypokalemia Normalized Stable ELEVATED TROPONIN: -troponin was 2.97; but has been trending down -most likely elevated due to PE, and possibly from acute sepsis vs. demand ischemia from tachycardia -EKG: sinus tach with no evidence of ischemia on admission -no wall motion abnormalities noted on TTE -is already on anticoagulation for PE - asymptomatic HEMATURIA: -pt reports passing kidney stone a few days prior to admission -UA 2+ blood; urine cultures with no growth -Renal US: bilateral nephrolithiasis, prostatic hypertrophy and nonspecific bladder wall thickening unchanged from prior US -Asymptomatic -Monitor him closely since he is on anticoagulant DVT PROPHYLAXIS On coumadin DISPOSITION Will d/c today Please call to schedule appointment with Infectious Disease [id number], [place] [address] Current Inpatient Medications: Current Inpatient Medications Medications (Trade) Dose Ordered Sig/Amrit Route Start Time Stop Time Status Last Admin Dose Admin Ondansetron HCl (Zofran Inj) 4 mg Q6H PRN IV 07/11/16 22:00 08/10/16 21:59 07/21/16 19:47 4 MG Nitroglycerin (Nitrostat Tab) 0.4 mg UD PRN SL 07/11/16 22:00 08/10/16 21:59 Zolpidem Tartrate (Ambien Tab) 5 mg HSZ PRN PO 07/12/16 03:45 08/11/16 03:44 07/17/16 23:52 5 MG Aspirin (Ecotrin Tab) 81 mg QAM PO 07/12/16 09:00 08/11/16 08:59 Future Hold 07/17/16 07:39 81 MG Tramadol HCl (Ultram Tab) 50 mg Q6H PRN PO 07/12/16 20:45 08/11/16 20:44 07/17/16 00:30 50 MG Morphine Sulfate 4 mg 4 mg Q6H PRN IV 07/12/16 23:30 07/26/16 23:29 07/16/16 21:08 4 MG Promethazine HCl/ Sodium Chloride (Phenergan Inj/ Nss 50ml) 50.5 ml @ 204 mls/hr Q6H PRN IV 07/13/16 12:30 08/12/16 12:29 07/14/16 16:23 204 MLS/HR Oxycodone/ Acetaminophen (Percocet 5-325MG Tab) 1 tab Q6H PRN PO 07/16/16 20:45 07/30/16 20:44 07/24/16 00:03 1 TAB Non-Formulary Medication (Non-Formulary Patient'S Own Med) 1 ea HS PO 07/18/16 21:00 08/17/16 20:59 07/24/16 00:04 1 EA Acetaminophen (Tylenol Tab) 650 mg Q6H PRN PO 07/18/16 15:30 08/17/16 15:29 07/22/16 10:20 650 MG Pantoprazole Sodium (Protonix Tab) 40 mg QAM PO 07/22/16 09:00 08/21/16 08:59 07/24/16 08:06 40 MG Warfarin Sodium (Coumadin Tab) 5 mg DAILY@16 PO 07/21/16 16:00 08/20/16 15:59 07/23/16 15:35 5 MG
[2016-07-24] MEDS ORDERED: CMD2 PO (14:45)
--- NOTE | 2016-07-24 15:04 | Discharge Instructions ---
Discharge Instructions Admission Reason for Admission: Sepsis Discharge Discharge Diagnosis / Problem: (1) DVT (deep venous thrombosis) (2) PE (pulmonary thromboembolism) (3) HIV antibody positive (4) Sepsis VTE Date & Time Date of VTE Diagnosis: Jul 12, 2016 Time of VTE Diagnosis: 06:16 Discharge Goals Goal(s): Decrease discomfort, Improve function, Improve disease control Activity Recommendations Activity Limitations: as noted below (increase activities as tolerated) . Instructions / Follow-Up Instructions / Follow-Up Follow up appointment with your Primary care Physician Dr. Marie on Jul 28 at 10:50 am Follow with Infectious disease Dr. Fung between 2 to 4 weeks Please call to schedule appointment with Infectious Disease [address] [place] [address] [id number], [place] [address] Follow up with the anticoagulant clinic for the Coumadin The clinic will contact you Continue Coumadin 2 mg daily (next dose to be taking tomorrow afternoon) and check INR as directed INR goal is between 2 to 3 Today INR is 2.3 Use the walker to ambulate Fall precaution Practice safe sex Medication Instructions: * Warfarin is a medicine prescribed to prevent blood clots * Warfarin will thin your blood and help prevent new clots * Take your medications exactly as directed * Never skip a dose. Never take a double dose. If you miss a dose, take it as soon as you remember * It is important for your doctor to monitor your prothrombin time (PT). This is a lab test * Keep your appointment for lab tests Risk of Adverse Drug Reactions and Interactions: * Warfarin increases your risk of bleeding * The food you eat and other medications you take can affect how Warfarin works in your body * Ask your doctor about daily aspirin therapy * It is very important to talk with your doctor about all of the other medicines , antibiotics, vitamins or herbal products that you are taking * All of your medication must be approved by your doctor, including new medicines, as well as medicines you have taken before you started taking Warfarin Diet: * In order for Warfarin to work properly, it is important to keep your intake of Vitamin K as consistent as possible * You should avoid any sudden change in Vitamin K intake * Report any significant changes in your diet or weight to your doctor Call your Primary Care doctor if you experience any of the following: * Swelling or Pain in your leg * Sudden, continuous pain deep in a muscle * Pain that worsens when you are active or when you stand still for a long time * Chest Pain * Sudden Shortness of Breath * Rapid or pounding heart beat * Fainting * Dizziness * Cough with blood or bloody sputum * Sweating more than normal * Bruises * Heavy or uncontrolled bleeding * Blood in your urine, stool or vomit * Black or tarry stools Caring for Your Self at Home: * Avoid sitting, standing or lying down for long periods without moving your legs and feet * When traveling by car, stop to get out and move around at least once every 3 hours * On long airplane, train or bus rides, get up and move around when possible * If you can't get up, wiggle your toes and tighten your calves to keep your blood moving Follow Up: It is important for you to keep your follow up appointments with your medical provider. Current Hospital Diet Patient's current hospital diet: AHA Diet (Heart Healthy) Discharge Diet Recommended Diet: AHA Diet (Heart Healthy) Pending Studies Studies pending at discharge: yes List of pending studies: HIV confirmation test, CD4 count Medical Emergencies . Who to Call and When: Medical Emergencies: If at any time you feel your situation is an emergency, please call 911 immediately. . Non-Emergent Contact Non-Emergency issues call your: Primary Care Provider Call Non-Emergent contact if: you have a fever, you have any medication questions . . "Provider Documentation" section prepared by Adilene Merino. VTE Core Measure Inpt VTE Proph given/why not?: Warfarin (Coumadin) Reason no anticoag overlap I/P: Treatment provided - N/A Reason no anticoag overlap @DC: Treatment provided - N/A
[2016-07-24 15:11] VITALS: BP 120/76; PULSE 81; TEMP 36.8; O2SAT 93
[2016-07-24] MEDS ORDERED: ULT50X PO (15:22)
[2016-07-24] MEDS ORDERED: WARFARIN SOD 2 MG TAB PO SCH (16:00)
--- NOTE | 2016-07-27 22:58 | Discharge Summary ---
Discharge Summary Admission Date: Jul 11, 2016 at 21:57 Discharge Date: Jul 24, 2016 Discharge Disposition: Home Principal Diagnosis: Sepsis Secondary Diagnoses/Problems: Acute PE Acute DVT Ambulatory dysfunction Bilateral Psoas Hematoma Positive HIV antibody Procedures: Echo Interpretation Summary * Name: MARICEL SAHU Study Date: 07/12/2016 07:24 AM BP: 108/63 mmHg * Patient Location: [facility]\\S\\E215\\S\\1 HR: 89 * : 1950 (M/d/yyyy) Gender: Male Height: 68 in * Age: 66 yrs Ethnicity: CA Weight: 169 lb * Ordering Physician: Argenis Casas PA-C * Performed By: Pam Jim * * Reason For Study: ELEVATED TROPONIN * BSA: 1.9 m2 * -- Conclusions -- * The left ventricle is normal in size. * There is normal left ventricular wall thickness. * The left ventricular wall motion is normal. * Left ventricular systolic function is normal. * Ejection Fraction = 60-65%. * Grade I diastolic dysfunction, (abnormal relaxation pattern). * Borderline right ventricular enlargement. * There is mild to moderate tricuspid regurgitation. * Right ventricular systolic pressure is elevated at 30-40mmHg. Procedure Details * A complete two-dimensional transthoracic echocardiogram was performed (2D, M- mode, Doppler and color flow Doppler). Left Ventricle * The left ventricle is normal in size. * There is normal left ventricular wall thickness. * Ejection Fraction = 60-65%. * Left ventricular systolic function is normal. * The left ventricular wall motion is normal. Right Ventricle * Borderline right ventricular enlargement. Atria * The left atrial size is normal. * Right atrial size is normal. * No ASD detected; PFO is not assessed. Mitral Valve * The mitral valve is normal. * There is no mitral valve stenosis. * There is trace mitral regurgitation. Tricuspid Valve * The tricuspid valve anatomy is normal. * There is no tricuspid stenosis. * There is mild to moderate tricuspid regurgitation. * Right ventricular systolic pressure is elevated at 30-40mmHg. Aortic Valve * The aortic valve is trileaflet. * No hemodynamically significant valvular aortic stenosis. * No aortic regurgitation is present. Pulmonic Valve * The pulmonic valve is not well visualized. Great Vessels * The aortic root is normal size. Pericardium/Pleural * There is no pericardial effusion. Great Vessels * Normal inferior vena cava diameter and respiratory variation suggests normal central venous pressure. Left Ventricular Diastolic Function * Grade I diastolic dysfunction, (abnormal relaxation pattern). MMode 2D Measurements and Calculations IVSd 0.66 cm IVSs 0.77 cm LVIDd 3.8 cm LVIDs 2.5 cm LVPWd 0.82 cm LVPWs 1.2 cm IVS/LVPW 0.80 FS 35.0 % EDV(Teich) 61.1 ml ESV(Teich) 21.4 ml EF(Teich) 65.1 % EDV(cubed) 53.9 ml ESV(cubed) 14.8 ml EF(cubed) 72.5 % % IVS thick 16.9 % % LVPW thick 42.0 % LV mass(C)d 76.6 grams LV mass(C)dI 40.3 grams/m\\S\\2 LV mass(C)s 58.8 grams LV mass(C)sI 30.9 grams/m\\S\\2 CO(Teich) 3.4 l/min CI(Teich) 1.8 l/min/m\\S\\2 SV(Teich) 39.8 ml SI(Teich) 20.9 ml/m\\S\\2 CO(cubed) 3.4 l/min CI(cubed) 1.8 l/min/m\\S\\2 SV(cubed) 39.1 ml SI(cubed) 20.6 ml/m\\S\\2 ACS 1.4 cm LA dimension 3.0 cm asc Aorta Diam 3.0 cm LVOT diam 1.8 cm LVOT area 2.5 cm\\S\\2 LVAd ap4 30.4 cm\\S\\2 LVLd ap4 8.4 cm EDV(MOD-sp4) 90.0 ml LVAs ap4 15.6 cm\\S\\2 LVLs ap4 6.9 cm ESV(MOD-sp4) 31.0 ml EF(MOD-sp4) 65.6 % LVAd ap2 28.0 cm\\S\\2 LVLd ap2 7.7 cm EDV(MOD-sp2) 85.0 ml LVAs ap2 14.7 cm\\S\\2 LVLs ap2 5.7 cm ESV(MOD-sp2) 33.0 ml EF(MOD-sp2) 61.2 % CO(MOD-sp4) 5.1 l/min CI(MOD-sp4) 2.7 l/min/m\\S\\2 SV(MOD-sp4) 59.0 ml SI(MOD-sp4) 31.0 ml/m\\S\\2 CO(MOD-sp2) 4.5 l/min CI(MOD-sp2) 2.4 l/min/m\\S\\2 SV(MOD-sp2) 52.0 ml SI(MOD-sp2) 27.3 ml/m\\S\\2 Doppler Measurements and Calculations MV E max jordan 60.5 cm/sec MV A max jordan 87.3 cm/sec MV E/A 0.69 MV dec time 0.17 sec Ao V2 max 125.6 cm/sec Ao max PG 6.3 mmHg Ao max PG (full) 3.4 mmHg FLORENTINO(V,A) 1.7 cm\\S\\2 FLORENTINO(V,D) 1.7 cm\\S\\2 LV V1 max PG 2.9 mmHg LV V1 mean PG 1.6 mmHg LV V1 max 84.7 cm/sec LV V1 mean 58.0 cm/sec LV V1 VTI 18.4 cm MR max jordan 210.4 cm/sec MR max PG 17.7 mmHg SV(LVOT) 45.1 ml SI(LVOT) 23.7 ml/m\\S\\2 PA V2 max 52.8 cm/sec PA max PG 1.1 mmHg PI end-d jordan 119.4 cm/sec TR max jordan 233.0 cm/sec Created: Initialized: 07/12/16904 <Electronically signed by Sven Chou M.D.> Signed: 07/12/162031 Sven Chou M.D. The status of this report is Signed. Draft = Not yet reviewed or approved by Digital Media Coordinator. Signed = Reviewed and approved by Digital Media Coordinator. Consultations: ID Pending Studies/Follow-Up: HIV confirmation test, CD4 count Medication Reconciliation New Medications: Warfarin Sod (Coumadin) 2 Mg Tab 2 MG PO DAILY for 30 Days, #30 TAB Tramadol HCl (Tramadol HCl) 50 Mg Tab 50 MG PO Q8 PRN for Pain for 7 Days, #21 TAB Discontinued Medications: Ibuprofen (Motrin) 400 Mg Tab 400 MG PO Q6H PRN for Pain, TAB Admission Information HPI (per Admitting provider): This is a 66 y/o male with no PMHx who presents to the ED c/o flu like sxs for one week. Pt reports that for the past week he has had a cough that is mildly productive of phlegm. He states he will get coughing spells that cause him to vomit. His sxs are assoc with poor appetite but he has been able to eat multiple small meals a day. He had been taking Ibuprofen at home for his sxs with minimal relief. Today he developed shaking chills which prompted him to go to the ED. Pt reports he had some fleeting flank pain last week and ended up passing a stone which he states happens from time to time. Pt denies fever, diaphoresis, chest pain, palpitations, SOB, wheezing, abd pain, nausea, bowel or bladder issues, LE edema ,calf pain, lightheadedness/dizziness. In the ED, pt is febrile, tachycardic and hypotensive on arrival with leukocytosis >13k. lactic acid 2.28. Na+ 133. UA +nitrite, 2+ blood; neg bacteria. CXR negative for acute process. Initial troponin 2.9 and EKG sinus tachy with no acute ischemic changes noted. Pt received IVF and broad spectrum abx in the ED. He appears stable and will be admitted for further evaluation and treatment. Physical Exam (per Admitting): General Appearance: WD/WN, no apparent distress, + pertinent finding Head: normocephalic, atraumatic Eyes: normal inspection ENT: hearing grossly normal Neck: supple Respiratory/Chest: chest non-tender, lungs clear, normal breath sounds, no respiratory distress Cardiovascular: regular rate, rhythm, no edema, no murmur, + tachycardia Abdomen/GI: normal bowel sounds, non tender, soft Back: normal inspection Extremities/Musculoskelatal: normal inspection, no calf tenderness, no pedal edema Neurologic/Psych: alert, normal mood/affect, oriented x 3 Skin: normal color, warm/dry Hospital Course ACUTE PE AND DVT: -RUL peripheral PE and left peroneal DVT as seen on CTA and LE doppler -Nonocclusive 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 -Received Coumadin with IV heparin drip bridge -no recent surgery/trauma/prolonged periods of immobility -patient is being followed for prostatic hypertrophy but denies any new symptoms ; refused cancer screening colonoscopy on multiple occasions -Heparin was stopped following Bilateral Psoas Hematoma -Coumadin was restarted. INR today 2.3 (07/24/16) -Hyper coagulation studies-negative. -Negative Prothrombin Gene Mutation and Negative Factor V Leiden -Will discharge on coumadin 2 mg - Arrange made for him to follow with the anticoagulant clinic Bilateral Psoas Hematoma Right more than the Left Heparin discontinued and Coumadin was on hold, then restarted CT -size of the Hematoma has not increased Hgb is slightly decreased to 8.6 on 07/22/[address] of the right hip shown no change in the hematoma Hgb today is 9 and INR is 2.3 (07/24/16) Will arrange him to follow with the anticoagulant clinic Ambulatory dysfunction due to right hip pain PT/OT Continue ambulate with rolling walker POSSIBLE SEPSIS: UNCLEAR SOURCE -presented with mildly productive cough, post-tussive vomiting and shaking chills -meets SIRS criteria with fever, tachycardia, hypotension and leukocytosis >13K -lactic acid 2.28 POC and 1.0 on repeat -blood cultures 1/2 growing group C beta strep; repeat blood cultures -on broad spectrum abx ( Zosyn and Levaquin) -patient has also required HIV testing which is pending, he is aware the initial is positive but the confirmatory is pending -Initial CXR was negative for any consolidation -Repeat CXR to r/o any pneumonia /effusion -Complete Levaquin course - ID on board Fever -resolved Continue Antibiotics Repeat CXR and Blood cultures-both negative No More fever Admits to sweat easily Remains hemodynamically stable Doubt any Psoas Abscess Tylenol for now If noted again-will get Blood cultures Stable Positive HIV test result -preliminary Await confirmatory test Patient aware and lymphadenopathy Pt did not discuss the result yet with his ID is on board waiting for confirmation result Pt will follow with ID in 2 weeks to discuss lab result and possible treatment Right Hip/Lower extremity Pain Likely arthritis as in X-ray CT showed Heterogeneous enlargement of the bilateral iliopsoas muscles which most likely represents intramuscular hematomas. However, abscesses could also have a similar appearance. Unable to get an MRI of the HIP due to metal Repeat CT of the right hip shown no change in the hematoma Stable Hypokalemia Normalized Stable ELEVATED TROPONIN: -troponin was 2.97; but has been trending down -most likely elevated due to PE, and possibly from acute sepsis vs. demand ischemia from tachycardia -EKG: sinus tach with no evidence of ischemia on admission -no wall motion abnormalities noted on TTE -is already on anticoagulation for PE - asymptomatic HEMATURIA: -pt reports passing kidney stone a few days prior to admission -UA 2+ blood; urine cultures with no growth -Renal US: bilateral nephrolithiasis, prostatic hypertrophy and nonspecific bladder wall thickening unchanged from prior US -Asymptomatic -Monitor him closely since he is on anticoagulant DVT PROPHYLAXIS On coumadin DISPOSITION Will d/c today Please call to schedule appointment with Infectious Disease [facility], [place] [address] Total time spent on discharge = 45 minutes This includes examination of the patient, discharge planning, medication reconciliation, and communication with other providers. Discharge Instructions Admission Reason for Admission: Sepsis Discharge Discharge Diagnosis / Problem: (1) DVT (deep venous thrombosis) (2) PE (pulmonary thromboembolism) (3) HIV antibody positive (4) Sepsis VTE Date & Time Date of VTE Diagnosis: Jul 12, 2016 Time of VTE Diagnosis: 06:16 Discharge Goals Goal(s): Decrease discomfort, Improve function, Improve disease control Activity Recommendations Activity Limitations: as noted below (increase activities as tolerated) . Instructions / Follow-Up Instructions / Follow-Up Follow up appointment with your Primary care Physician Dr. Marie on Jul 28 at 10:50 am Follow with Infectious disease Dr. Fung between 2 to 4 weeks Please call to schedule appointment with Infectious Disease [facility], [place] [address] Follow up with the anticoagulant clinic for the Coumadin The clinic will contact you Continue Coumadin 2 mg daily (next dose to be taking tomorrow afternoon) and check INR as directed INR goal is between 2 to 3 Today INR is 2.3 Use the walker to ambulate Fall precaution Practice safe sex Medication Instructions: * Warfarin is a medicine prescribed to prevent blood clots * Warfarin will thin your blood and help prevent new clots * Take your medications exactly as directed * Never skip a dose. Never take a double dose. If you miss a dose, take it as soon as you remember * It is important for your doctor to monitor your prothrombin time (PT). This is a lab test * Keep your appointment for lab tests Risk of Adverse Drug Reactions and Interactions: * Warfarin increases your risk of bleeding * The food you eat and other medications you take can affect how Warfarin works in your body * Ask your doctor about daily aspirin therapy * It is very important to talk with your doctor about all of the other medicines , antibiotics, vitamins or herbal products that you are taking * All of your medication must be approved by your doctor, including new medicines, as well as medicines you have taken before you started taking Warfarin Diet: * In order for Warfarin to work properly, it is important to keep your intake of Vitamin K as consistent as possible * You should avoid any sudden change in Vitamin K intake * Report any significant changes in your diet or weight to your doctor Call your Primary Care doctor if you experience any of the following: * Swelling or Pain in your leg * Sudden, continuous pain deep in a muscle * Pain that worsens when you are active or when you stand still for a long time * Chest Pain * Sudden Shortness of Breath * Rapid or pounding heart beat * Fainting * Dizziness * Cough with blood or bloody sputum * Sweating more than normal * Bruises * Heavy or uncontrolled bleeding * Blood in your urine, stool or vomit * Black or tarry stools Caring for Your Self at Home: * Avoid sitting, standing or lying down for long periods without moving your legs and feet * When traveling by car, stop to get out and move around at least once every 3 hours * On long airplane, train or bus rides, get up and move around when possible * If you can't get up, wiggle your toes and tighten your calves to keep your blood moving Follow Up: It is important for you to keep your follow up appointments with your medical provider. Current Hospital Diet Patient's current hospital diet: AHA Diet (Heart Healthy) Discharge Diet Recommended Diet: AHA Diet (Heart Healthy) Pending Studies Studies pending at discharge: yes List of pending studies: HIV confirmation test, CD4 count Medical Emergencies . Who to Call and When: Medical Emergencies: If at any time you feel your situation is an emergency, please call 911 immediately. . Non-Emergent Contact Non-Emergency issues call your: Primary Care Provider Call Non-Emergent contact if: you have a fever, you have any medication questions . . "Provider Documentation" section prepared by Adilene Merino. VTE Core Measure Inpt VTE Proph given/why not?: Warfarin (Coumadin) Additional Copies To Magi Marie M.D.
[2016-07-31 16:32] LABS: LSP % CELLS ANALYZED CD4 27 % (30-61); LSP ABSOLUTE CT CD4 258 cells/uL (490-1740); LSP LYMPHOCYTES ABSOLUTE 968 cells/uL (850-3900)
== END 2016-07-24 15:58 | disposition home health service (06) | DRG 974 ==
LOC: ENRESERVTM → ENRESERVDT → C.EDB 19:54 → C.2T 21:57 → C.MED 07-22 22:16
PROVIDERS: ADMIT Internal Medicine; ATTEND Internal Medicine
DX: A41.9 Sepsis, unspecified organism (principal); I26.99 Other pulmonary embolism without acute cor pulmonale; B20 Human immunodeficiency virus [HIV] disease; I31.3 Pericardial effusion (noninflammatory); I82.4Z2 Acute embolism and thrombosis of unspecified deep veins of left distal lower extremity; N39.0 Urinary tract infection, site not specified; N40.0 Benign prostatic hyperplasia without lower urinary tract symptoms; Z87.891 Personal history of nicotine dependence; N20.0 Calculus of kidney; E87.6 Hypokalemia; R31.9 Hematuria, unspecified; M79.81 Nontraumatic hematoma of soft tissue; Z79.1 Long term (current) use of non-steroidal anti-inflammatories (NSAID); Z88.6 Allergy status to analgesic agent; Z88.5 Allergy status to narcotic agent; Z87.442 Personal history of urinary calculi; Z83.3 Family history of diabetes mellitus; Z80.9 Family history of malignant neoplasm, unspecified; Z82.49 Family history of ischemic heart disease and other diseases of the circulatory system

== ENCOUNTER → 2016-08-29 | Outpatient (CLI) | payer OTHER ==
[~2016-08-29] MED LIST changes: -CYCL10TA6 PO; -MELO15TA4 PO; +ULT50X PO
[2016-08-29 11:07] LABS: BASO % 0.4 %; BASO ABS # 0.02 K/uL (0-0.2); COMPLETE YES; EOS % 2.3 %; HEMATOCRIT 41.7 % (42-52); IG% 0.2 %; LYMPH % 24.4 %; LYMPH ABS # 1.36 K/uL (1.2-3.4); MEAN CELL VOLUME 89.3 fL (80-100); MEAN CORPUSCULAR HEMOGLOBIN 29.1 pg (25-34); MEAN CORPUSCULAR HGB CONC 32.6 g/dl (32-36); MEAN PLATELET VOLUME 9.4 fL (7.4-10.4); MONO % 8.1 %; NEUT % 64.6 %; PLATELET COUNT 269 K/uL (130-400); RED BLOOD COUNT 4.67 M/uL (4.7-6.1); WHITE BLOOD COUNT 5.58 K/uL (4.8-10.8)
[2016-08-29 11:50] LABS: BLOOD UREA NITROGEN 20 mg/dl (7-18); GLUCOSE 90 mg/dl (70-99)
[2016-08-29 11:51] LABS: ALT/SGPT 24 U/L (12-78); BUN/CREATININE RATIO 16.7 (10-20); CALCIUM 9.3 mg/dl (8.5-10.1); CARBON DIOXIDE 27 mmol/L (21-32); CHLORIDE 104 mmol/L (98-107); POTASSIUM 4.2 mmol/L (3.5-5.1); SODIUM 140 mmol/L (136-145)
[2016-08-29 11:53] LABS: ALB/GLOB RATIO 0.7 (0.9-2); ALKALINE PHOSPHATASE 72 U/L (45-117); AST/SGOT 23 U/L (15-37)
[2016-08-29 11:54] LABS: CHOLESTEROL/HDL RATIO 3.1
== END | disposition home or self-care (01) ==
LOC: C.LAB1850 10:16
PROVIDERS: ATTEND Internal Medicine Infectious Disease
DX: Z13.220 Encounter for screening for lipoid disorders (principal); B20 Human immunodeficiency virus [HIV] disease

== ENCOUNTER → 2016-11-26 | Outpatient (CLI) | payer OTHER ==
[2016-11-26 10:20] LABS: BASO % 0.5 %; BASO ABS # 0.03 K/uL (0-0.2); COMPLETE YES; EOS % 1.5 %; HEMATOCRIT 51.7 % (42-52); IG% 0.3 %; LYMPH ABS # 1.71 K/uL (1.2-3.4); MEAN CELL VOLUME 91.2 fL (80-100); MEAN CORPUSCULAR HEMOGLOBIN 30.2 pg (25-34); MEAN CORPUSCULAR HGB CONC 33.1 g/dl (32-36); MEAN PLATELET VOLUME 9.3 fL (7.4-10.4); NEUT % 59.7 %; PLATELET COUNT 407 K/uL (130-400); RED BLOOD COUNT 5.67 M/uL (4.7-6.1)
[2016-11-26 11:06] LABS: ALT/SGPT 21 U/L (12-78); AST/SGOT 19 U/L (15-37); BLOOD UREA NITROGEN 24 mg/dl (7-18); BUN/CREATININE RATIO 21.4 (10-20); CALCIUM 9.3 mg/dl (8.5-10.1); CARBON DIOXIDE 30 mmol/L (21-32); CHLORIDE 104 mmol/L (98-107); GLUCOSE 80 mg/dl (70-99); POTASSIUM 4.2 mmol/L (3.5-5.1); SODIUM 139 mmol/L (136-145)
[2016-11-26 11:09] LABS: ALB/GLOB RATIO 0.8 (0.9-2); ALKALINE PHOSPHATASE 76 U/L (45-117); CHOLESTEROL 176 mg/dl (0-200); CHOLESTEROL/HDL RATIO 3.2; HDL CHOLESTEROL 55 mg/dl; LDL CHOLESTEROL CALCULATED 97 mg/dl; TRIGLYCERIDES 118 mg/dl (0-150); VERY LOW DENSITY LIPOPROT CALC 24 mg/dl
[2016-11-28 23:27] LABS: LSP % CELLS ANALYZED CD4 29 % (30-61); LSP ABSOLUTE CT CD4 408 cells/uL (490-1740); LSP LYMPHOCYTES ABSOLUTE 1419 cells/uL (850-3900)
== END | disposition home or self-care (01) ==
LOC: C.LAB1850 09:34
PROVIDERS: ATTEND Internal Medicine Infectious Disease
DX: B20 Human immunodeficiency virus [HIV] disease (principal)

== ENCOUNTER → 2017-02-23 | Outpatient (CLI) | payer OTHER ==
[2017-02-23 09:34] LABS: BASO % 0.6 %; BASO ABS # 0.04 K/uL (0-0.2); COMPLETE YES; HEMATOCRIT 53.1 % (42-52); IG% 0.3 %; LYMPH % 25.2 %; LYMPH ABS # 1.63 K/uL (1.2-3.4); MEAN CELL VOLUME 86.5 fL (80-100); MEAN CORPUSCULAR HGB CONC 32.4 g/dl (32-36); MEAN PLATELET VOLUME 9.8 fL (7.4-10.4); MONO % 9.4 %; NEUT % 62.5 %; PLATELET COUNT 388 K/uL (130-400); RED BLOOD COUNT 6.14 M/uL (4.7-6.1); WHITE BLOOD COUNT 6.48 K/uL (4.8-10.8)
[2017-02-23 09:54] LABS: AST/SGOT 21 U/L (15-37); BLOOD UREA NITROGEN 26 mg/dl (7-18); BUN/CREATININE RATIO 21.8 (10-20); CALCIUM 9.1 mg/dl (8.5-10.1); CARBON DIOXIDE 26 mmol/L (21-32); CHLORIDE 106 mmol/L (98-107); GLUCOSE 120 mg/dl (70-99); POTASSIUM 4.2 mmol/L (3.5-5.1); SODIUM 137 mmol/L (136-145)
[2017-02-23 09:57] LABS: ALB/GLOB RATIO 0.8 (0.9-2); ALKALINE PHOSPHATASE 73 U/L (45-117); ALT/SGPT 24 U/L (12-78); CHOLESTEROL 152 mg/dl (0-200); CHOLESTEROL/HDL RATIO 3.1; HDL CHOLESTEROL 49 mg/dl; LDL CHOLESTEROL CALCULATED 80 mg/dl; TRIGLYCERIDES 116 mg/dl (0-150); VERY LOW DENSITY LIPOPROT CALC 23 mg/dl
[2017-02-24 20:41] LABS: LSP % CELLS ANALYZED CD4 26 % (30-61); LSP ABSOLUTE CT CD4 456 cells/uL (490-1740); LSP LYMPHOCYTES ABSOLUTE 1767 cells/uL (850-3900)
== END | disposition home or self-care (01) ==
LOC: C.LAB1850 08:10
PROVIDERS: ATTEND Internal Medicine Infectious Disease
DX: B20 Human immunodeficiency virus [HIV] disease (principal)

== ENCOUNTER → 2017-08-31 | Outpatient (CLI) | payer OTHER ==
[2017-08-31 09:29] LABS: BASO % 0.9 %; BASO ABS # 0.06 K/uL (0-0.2); EOS % 2.3 %; EOS ABS # 0.15 K/uL (0-0.5); HEMATOCRIT 54.2 % (42-52); HEMOGLOBIN 18.2 g/dL (14.0-18.0); IG# 0.03 K/uL (0.00-0.02); LYMPH % 23.6 %; LYMPH ABS # 1.51 K/uL (1.2-3.4); MEAN CELL VOLUME 83.9 fL (80-100); MEAN CORPUSCULAR HEMOGLOBIN 28.2 pg (25-34); MEAN CORPUSCULAR HGB CONC 33.6 g/dl (32-36); MEAN PLATELET VOLUME 9.3 fL (7.4-10.4); MONO % 9.4 %; NEUT % 63.3 %; NEUT ABS # 4.05 K/uL (1.4-6.5); PLATELET COUNT 370 K/uL (130-400); RED CELL DISTRIBUTION WIDTH CV 16.9 % (11.5-14.5); RED CELL DISTRIBUTION WIDTH SD 51.2 fL (36.4-46.3)
[2017-08-31 10:05] LABS: ALBUMIN 3.5 gm/dl (3.4-5.0); ALT/SGPT 27 U/L (12-78); BLOOD UREA NITROGEN 25 mg/dl (7-18); CALCIUM 9.2 mg/dl (8.5-10.1); CARBON DIOXIDE 27 mmol/L (21-32); CHOLESTEROL 170 mg/dl (0-200); CREATININE 1.35 mg/dl (0.60-1.40); GLUCOSE 102 mg/dl (70-99); POTASSIUM 4.3 mmol/L (3.5-5.1); SODIUM 137 mmol/L (136-145)
[2017-08-31 10:09] LABS: ALKALINE PHOSPHATASE 71 U/L (45-117); AST/SGOT 21 U/L (15-37); LDL CHOLESTEROL CALCULATED 97 mg/dl; TOTAL PROTEIN 7.5 gm/dl (6.4-8.2)
[2017-09-03 22:35] LABS: LSP % CELLS ANALYZED CD4 27 % (30-61); LSP ABSOLUTE CT CD4 376 cells/uL (490-1740)
== END | disposition home or self-care (01) ==
LOC: C.LAB1850 08:23
PROVIDERS: ATTEND Internal Medicine Infectious Disease
DX: B20 Human immunodeficiency virus [HIV] disease (principal)

== ENCOUNTER → 2018-03-08 | Outpatient (CLI) | payer OTHER ==
[2018-03-08 10:37] LABS: BASO % 0.8 %; BASO ABS # 0.05 K/uL (0-0.2); EOS % 2.9 %; EOS ABS # 0.17 K/uL (0-0.5); HEMATOCRIT 55.2 % (42-52); HEMOGLOBIN 18.2 g/dL (14.0-18.0); IG# 0.04 K/uL (0.00-0.02); LYMPH ABS # 1.18 K/uL (1.2-3.4); MEAN CELL VOLUME 93.7 fL (80-100); MEAN CORPUSCULAR HEMOGLOBIN 30.9 pg (25-34); MEAN PLATELET VOLUME 9.9 fL (7.4-10.4); MONO % 8.6 %; MONO ABS # 0.51 K/uL (0.11-0.59); NEUT ABS # 3.95 K/uL (1.4-6.5); PLATELET COUNT 382 K/uL (130-400); RED CELL DISTRIBUTION WIDTH CV 14.8 % (11.5-14.5); RED CELL DISTRIBUTION WIDTH SD 51.1 fL (36.4-46.3)
[2018-03-08 10:57] LABS: ALBUMIN 3.2 gm/dl (3.4-5.0); ALKALINE PHOSPHATASE 77 U/L (45-117); ALT/SGPT 27 U/L (12-78); AST/SGOT 22 U/L (15-37); BLOOD UREA NITROGEN 22 mg/dl (7-18); CALCIUM 8.8 mg/dl (8.5-10.1); CARBON DIOXIDE 27 mmol/L (21-32); CHOLESTEROL 149 mg/dl (0-200); CREATININE 1.43 mg/dl (0.60-1.40); GLUCOSE 113 mg/dl (70-99); LDL CHOLESTEROL CALCULATED 63 mg/dl; POTASSIUM 4.2 mmol/L (3.5-5.1); SODIUM 138 mmol/L (136-145); TOTAL PROTEIN 7.3 gm/dl (6.4-8.2)
[2018-03-11 19:31] LABS: LSP % CELLS ANALYZED CD4 31 % (30-61); LSP ABSOLUTE CT CD4 380 cells/uL (490-1740)
== END | disposition home or self-care (01) ==
LOC: C.LAB1850 09:31
PROVIDERS: ATTEND Internal Medicine Infectious Disease
DX: B20 Human immunodeficiency virus [HIV] disease (principal)